=== PATIENT | male | born 1940 | race American Indian/Alaskan Native ===

== ENCOUNTER 2019-05-28 03:59 | Inpatient (IN) | payer MEDICARE ==
[2019-05-28] MEDS ORDERED: ZOFRAN IV ONE (04:59)
[2019-05-28] MEDS ORDERED: NACL 0.9% 1000 ML 1,000 ML IV ONE (04:59)
[2019-05-28] MEDS ORDERED: PROTONIX IV ONE (04:59)
--- NOTE | 2019-05-28 05:03 | Emergency Department Report ---
ED General Adult HPI - General Chief complaint: Weakness Stated complaint: WEAKNESS Time Seen by Provider: 05/28/19 04:48 Source: patient, EMS Mode of arrival: Stretcher Limitations: No Limitations - History of Present Illness Initial comments: Patient is 79 years old male, lives by himself with only past medical history of GERD. Patient brought to the emergency room via EMS accompanied by his ex- and his daughter. Patient stated that for the last 7 days he has been nauseated was vomiting and unable to keep anything down. Patient is coughing also. Patient denied any abdominal pain, fever or chills. -: week(s) - Related Data Allergies Allergy/AdvReac Type Severity Reaction Status Date / Time No Known Allergies Allergy Unverified 08/04/14 14:55 ED Review of Systems ROS: Stated complaint: WEAKNESS Other details as noted in HPI Comment: All other systems reviewed and negative Constitutional: denies: chills, fever Respiratory: cough. denies: shortness of breath, SOB with exertion, wheezing Cardiovascular: denies: chest pain, palpitations Gastrointestinal: nausea, vomiting. denies: abdominal pain, diarrhea, constipation, hematemesis, melena, hematochezia Genitourinary: denies: urgency, dysuria Musculoskeletal: denies: back pain Neurological: weakness. denies: headache, numbness, paresthesias, confusion ED Past Medical Hx - Past Medical History Previous Medical History?: No - Surgical History Past Surgical History?: No - Social History Smoking Status: Current Every Day Smoker Substance Use Type: None ED Physical Exam - General Limitations: No Limitations General appearance: alert, other (patient is actively vomiting) - Head Head exam: Present: atraumatic, normocephalic, normal inspection - Eye Eye exam: Present: normal appearance - ENT ENT exam: Present: mucous membranes dry - Neck Neck exam: Present: normal inspection, full ROM. Absent: tenderness, meningismus, lymphadenopathy, thyromegaly - Respiratory Respiratory exam: Present: normal lung sounds bilaterally - Cardiovascular Cardiovascular Exam: Present: regular rate, normal rhythm, normal heart sounds - GI/Abdominal GI/Abdominal exam: Present: soft, normal bowel sounds. Absent: distended, tenderness, guarding, rebound, rigid, organomegaly, mass, bruit, pulsatile mass, hernia - Extremities Exam Extremities exam: Present: normal inspection, full ROM, normal capillary refill. Absent: tenderness, pedal edema, joint swelling, calf tenderness - Back Exam Back exam: Present: normal inspection, full ROM. Absent: CVA tenderness (R), CVA tenderness (L), muscle spasm, paraspinal tenderness, vertebral tenderness - Neurological Exam Neurological exam: Present: alert, oriented X3, CN II-XII intact, reflexes normal - Psychiatric Psychiatric exam: Present: normal mood - Skin Skin exam: Present: warm, intact, normal color ED Course Vital Signs 05/28/19 04:24 Temperature 97.6 F Pulse Rate 79 Respiratory 11 L Rate Blood Pressure 149/72 O2 Sat by Pulse 95 Oximetry ED Medical Decision Making - Lab Data Result diagrams: 05/28/19 04:52 05/28/19 04:52 - EKG Data -: EKG Interpreted by Me EKG shows normal: sinus rhythm Rate: normal - EKG Data Interpretation: no acute changes - Radiology Data Radiology results: report reviewed - Medical Decision Making Patient is 79 years old male, lives by himself with only past medical history of GERD. Patient brought to the emergency room via EMS accompanied by his ex- and his daughter. Patient stated that for the last 7 days he has been nauseated was vomiting and unable to keep anything down. Patient is coughing also. Patient denied any abdominal pain, fever or chills. Patient found to be in acute renal failure with a creatinine of 31 when and BUN of 187 and potassium of 7.8. Patient received calcium chloride, dextrose 50%, and insulin 10 units, albuterol and can't validate. I discussed the patient is Dr. Brown from nephrology in stated that he'll see the patient. I discussed the patient is Dr. Lee, he agreed to admit the patient to medical service for further management. Critical Care Time: Yes Critical care time in (mins) excluding proc time.: 30 Critical care attestation.: If time is entered above; I have spent that time in minutes in the direct care of this critically ill patient, excluding procedure time. ED Disposition Clinical Impression: Acute renal failure, Hyperkalemia, Nausea and vomiting Disposition: OP ADMIT IP TO THIS HOSP Is pt being admited?: Yes Condition: Stable
[2019-05-28 05:14] LABS: Hematocrit 20.6 % (35.5-45.6); Hemoglobin 7.2 gm/dl (11.8-15.2); Mean Corpuscular HGB Conc 35 % (32-34); Mean Corpuscular Volume 97 fl (84-94); Platelet Count 433 K/mm3 (140-440); Red Blood Count 2.12 M/mm3 (3.65-5.03); Red Cell Distribution Width 15.1 % (13.2-15.2)
[2019-05-28 05:29] LABS: Calcium 7.5 mg/dL (8.4-10.2)
--- NOTE | 2019-05-28 05:32 | XRay Report ---
CHEST 1 VIEW INDICATION / CLINICAL INFORMATION: Weakness. COMPARISON: None available. FINDINGS: SUPPORT DEVICES: None. HEART / MEDIASTINUM: No significant abnormality. LUNGS / PLEURA: No significant pulmonary or pleural abnormality. No pneumothorax. ADDITIONAL FINDINGS: No significant additional findings. IMPRESSION: 1. No acute findings. Signer Name: Niurka Allen MD Signed: 05/28/2019 5:27 AM Workstation Name: [id number]
[2019-05-28 05:33] LABS: Albumin 2.4 g/dL (3.9-5)
[2019-05-28 05:34] LABS: Alanine Aminotransferase < 5 units/L (7-56); Bilirubin,Direct < 0.2 mg/dL (0-0.2)
[2019-05-28] MEDS ORDERED: D50W (25GM) Syringe IV ONE (05:47)
[2019-05-28] MEDS ORDERED: HumuLIN R IV ONE (05:47)
[2019-05-28] MEDS ORDERED: CALCIUM CHLORIDE 1,000 MG in NACL 0.9% 100 ML IV ONE (05:47)
[2019-05-28] MEDS ORDERED: PROVENTIL IH ONE (05:47)
[2019-05-28] MEDS ORDERED: KIONEX PO ONE ×2 (05:55→08:31)
[2019-05-28] MEDS ORDERED: ZOFRAN IV PRN (06:12)
[2019-05-28 06:17] LABS: Anisocytosis 1+; Basophils % (Manual) 0 % (0.0-1.8); Eosinophils % (Manual) 0 % (0.0-4.3); Hypochromasia 1+; Platelet Estimate Consistent w Auto; Total Cells Counted 100
[2019-05-28] MEDS ORDERED: NACL 0.9% 1000 ML 1,000 ML IV SCH (07:00)
--- NOTE | 2019-05-28 07:28 | History and Physical Report ---
CHIEF COMPLAINT: Weakness. Other complaints include nausea, vomiting and diarrhea. HISTORY OF PRESENT ILLNESS: The patient is a 79-year-old male who said he has been having nausea and vomiting going on for the last 24 hours. He has a history of associated weakness, but no history of abdominal pain, chest pain, shortness of breath, fever or chills and the patient said he was unable to keep anything down and has not been eating or drinking much and presented for evaluation. PAST MEDICAL HISTORY: Pertinent for gastroesophageal reflux disease. PAST SURGICAL HISTORY: Unremarkable. FAMILY HISTORY: Noncontributory. SOCIAL HISTORY: The patient smokes cigarette, does not drink alcohol and does not use illicit drugs. MEDICATIONS: The patient is on naproxen. Also, the patient is on pantoprazole. ALLERGIES: There are no known drug allergies. REVIEW OF SYSTEMS: CONSTITUTIONAL: There is no fever, no chills, no diaphoresis. HEENT: There is no headache or sore throat. CARDIOVASCULAR SYSTEM: There is no chest pain or orthopnea. RESPIRATORY SYSTEM: There is no shortness of breath or cough. GASTROINTESTINAL SYSTEM: Nausea and vomiting present. Diarrhea present. No abdominal pain, no constipation. NEUROLOGICAL SYSTEM: Generalized weakness present. No numbness, no altered mental status. MUSCULOSKELETAL SYSTEM: There is no joint pain or swelling. DERMATOLOGICAL SYSTEM: There is no skin rash or itching. GENITOURINARY SYSTEM: There is no dysuria, but no hematuria or flank pain. Rest of system review is normal. PHYSICAL EXAMINATION: GENERAL: At the time of exam, the patient was found to be alert, oriented x 3 and not in acute distress. VITAL SIGNS: At the initial time of presentation showed temperature of 97.6 degrees Fahrenheit, pulse of 79, respirations 11, blood pressure 149/72, O2 sat of 95% on room air. HEENT: Showed pupils to be equal, round, reactive to light and accommodating. Extraocular muscles are intact. NECK: Supple with no JVD or carotid bruit. CARDIOVASCULAR SYSTEM: Showed normal first and second heart sounds with no gallops or murmur. RESPIRATORY SYSTEM: Show good air entry on both sides of the lungs with no abnormal breath sounds. GASTROINTESTINAL SYSTEM: Show abdomen to be full, soft, nontender with no organomegaly or rigidity. NEUROLOGIC: Shows no focal deficit. MUSCULOSKELETAL SYSTEM: Show no joint swelling or tenderness. DERMATOLOGICAL SYSTEM: Show no skin rash. GENITOURINARY SYSTEM: Showing no costovertebral angle tenderness. PERTINENT LABORATORY AND IMAGING STUDIES: The patient has CBC done with normal white count of 10.3, low hemoglobin of 7.2, low hematocrit of 20.6 and high MCV of 97. The patient's chemistry showed low sodium level of 128, high potassium level of 7.8, low chloride level of 79.7 with low CO2 of 20 and high BUN of 187 with high creatinine of 31.6. The patient's calcium level is low with a value of 7.5, magnesium level is high with a value of 5. The patient's troponin levels show a high value of 0.097 and albumin level is low with a value of 3.6. The patient's lipase level is elevated with a value of 161. DIAGNOSES: 1. Acute renal failure. 2. Weakness. 3. Hyperkalemia. 4. Anemia. 5. Nausea and vomiting. 6. Elevated troponin level. PLAN OF CARE: 1. The patient will be admitted to telemetry. 2. The patient will have serial cardiac enzymes involving troponin, total CK, and CK-MB checked every 6 hours x 2 more levels. 3. The patient will have Nephrology consult with Dr. Ben Kramer because of acute renal failure and hyperkalemia. 4. The patient will have basic metabolic panel checked about 4 hours after the treatment of hyperkalemia that was done in the Emergency Room with IV regular insulin, IV 50% dextrose, Kayexalate, IV calcium chloride. 5. The patient will be on regular diet. 6. The patient will be on IV Zofran 4 mg every 8 hours as needed for nausea and 7. patient will be on N/S at 75ml/Hr vomiting. JOB# [id number] OCN/NTS MTDD
[2019-05-28 07:41] LABS: Chol/HDL Ratio 4.04 %
[2019-05-28] MEDS ORDERED: KIONEX PR ONE (08:14)
--- NOTE | 2019-05-28 09:48 | Consultation ---
History of Present Illness - Reason for Consult Consult date: 05/28/19 acute renal failure - History of Present Illness patient with h/p GERD and arthritis presnted to the ER for worsening nausea and vomiting and poor oral intake for the last week, his labs were noted for severe renal failure and hyperkalemia, I was contacted by ER physician and I requested hyperkalemia therapy including insulin, D50W amp, IV calcium and bicarb drip and repeat BMP in 2 hours, I was contacted by Dr guajardo regarding his renal failure, unfortunately BMP was not repeated and bicarb drip was not started, BMP was ordered STAT by Dr Guajardo but results were not available when I interviewed the patient, per ER nurse, she was busy and did not have the chance to collect it. the patient and family stated they were not aware of any kidney condition and he has never seen a kidney specialist in the past. Past History Past Medical History: GERD Medications and Allergies Allergies Allergy/AdvReac Type Severity Reaction Status Date / Time No Known Allergies Allergy Unverified 08/04/14 14:55 Active Meds: Active Medications Heparin Sodium (Porcine) (Heparin) 5,000 unit SUB-Q Q12HR NIKOS Sodium Chloride (Nacl 0.9% 1000 Ml) 1,000 mls @ 125 mls/hr IV DIRECT NIKOS Sodium Bicarbonate 150 meq/ (Dextrose) 1,150 mls @ 150 mls/hr IV DIRECT ONE Stop: 05/28/19 17:19 Ondansetron HCl (Zofran) 4 mg IV Q8H PRN PRN Reason: Nausea And Vomiting Review of Systems All systems: negative (nausea, vomiting) Exam - Vital Signs Vital signs: Vital Signs Pulse Ox 94 05/28/19 04:20 - General Appearance General appearance: well-developed, well-nourished, appears stated age EENT: ATNC, PERRL, mucous membranes dry Neck: Present: neck supple Respiratory: Clear to Ascultation Heart: regular, S1S2 Gastrointestinal: Present: normoactive bowel sounds. Absent: tenderness Integumentary: no rash, warm and dry Neurologic: no focal deficit, no asterixis, alert and oriented x3 Musculoskeletal: Present: other (no edema in BLE) Psychiatric: mood/affect appropriate, cooperative Results - Lab Results 05/28/19 04:52 05/28/19 04:52 Most recent lab results Calcium 7.5 mg/dL (8.4-10.2) L 05/28/19 04:52 Magnesium 5.00 mg/dL (1.7-2.3) H 05/28/19 04:52 Assessment and Plan severe renal failure, prerenal azotemia vs. ATN from dehydration and NSAIDs Hyperkalemia secondary to DMITRIY Anemia, possible secondary to CKD nausea and vomiting with elevated lipase - discussed with Dr Guajardo, ISTAT BMP re-ordered, if no improvement in kidney function or hyperkalemia will need to start HD, I called Dr Dela Cruz and he should b e available if vascath is available - secondary GN, paraprotein and vascultitis work up ordered - UA and urine lytes, protein and eos ordered - renal US ordered - iron panel ordered, consider consulting GI to r/o GI bleed - renally dose meds - strict I&O - avoid nephrotoxins Williams Olea MD [phone]
[2019-05-28] MEDS ORDERED: SODIUM BICARBONATE 150 MEQ in D5W 1,000 ML IV ONE (10:00)
[2019-05-28 10:26] LABS: Calcium 7.7 mg/dL (8.4-10.2)
[2019-05-28] MEDS ORDERED: CALCIUM GLUCONATE 2,000 MG in NACL 0.9% 100 ML IV ONE (10:30)
--- NOTE | 2019-05-28 11:44 | Event Note ---
Date: 05/28/19 NPO except meds. 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
--- NOTE | 2019-05-28 13:08 | Progress Note ---
Assessment and Plan Assessment and plan: Patient is a 79 yo man with a history of tobacco dependency, GERD, OA on naproxen given by his PCP Dr. Naseem Orlando who presented to [facility] ED with weakness, poor appetite, N/V. He was found to be in severe acute renal failure BUN 187/Cr 13.6 with severe hyperkalemia, K+ 7.8. He was treated with hyperkalem ia cocktail including insulin, albuterol neb, calcium gluconate but not bicarbornate or kayexalate. The patient went to the telemetry floor where I saw him with his daughter Magdaleno and ex-. The phlembologist was at bedside. His repeat potassium was 7.3. I spoke with IR and Dental Front Office Assistant; he will go for HD access placement for emergent hemodialysis. -Acute Renal failure, suspect ATN: continue IVFs, start HCO3 drip -Severe hyperkalemia with EKG changes, s/p IV calcium: ordered Kayexalate drip -Hyponatremia, hypovolemia: continue IVF -Severe Malnutrition, pt states he has been losing weight: consult [employer] -Suspected Acute Metabolic Encephalopathy, he just doesn't seem right, argumentative, slightly confused. -Anemia, normacytic: repeat CBC prolonged inpatient services 34 minutes History Interval history: Patient was seen and examined. Follow-up on current diagnosis of ARF. No overnight events reported to me. Patient denies any chest pain, shortness breath, nausea/vomiting or severe headaches. Imaging, nursing note, chart, labs and old chart reviewed. Discussed with patient. Hospitalist Physical - Physical exam Narrative exam: Gen: WDWN, NAD, Awake, Alert, Orientated x 3 but needs additional hints and he is stuttering, with difficulty finding words but he does not have aphasia HEENT: NCAT, EOMI, PERRL, OP Clear Neck: supple, no adenopathy, no thyromegaly, no JVD CVS/Heart: RRR, normal S1S2, pulses present bilaterally Chest/Lungs: CTA B, Symmetrical chest expansion, good air entry bilaterally GI/Abdomen: soft, NTND, good bowel sounds, no guarding or rebound /Bladder: no suprapubic tenderness, no CVA or paraspinal tenderness Extermity/Skin: no c/c/e, no obvious rash MSK: FROM x 4 Neuro: CN 2-12 grossly intact, no new focal deficits Psych: calm - Constitutional Vitals: Temp Pulse Resp BP Pulse Ox 97.5 F L 91 H 18 132/68 99 05/28/19 12:04 05/28/19 12:04 05/28/19 12:04 05/28/19 12:04 05/28/19 12:04 Results - Labs CBC & Chem 7: 05/28/19 04:52 05/28/19 09:51 Labs: Laboratory Last Values WBC 10.3 K/mm3 (4.5-11.0) 05/28/19 04:52 RBC 2.12 M/mm3 (3.65-5.03) L 05/28/19 04:52 Hgb 7.2 gm/dl (11.8-15.2) L 05/28/19 04:52 Hct 20.6 % (35.5-45.6) L 05/28/19 04:52 MCV 97 fl (84-94) H 05/28/19 04:52 MCH 34 pg (28-32) H 05/28/19 04:52 MCHC 35 % (32-34) H 05/28/19 04:52 RDW 15.1 % (13.2-15.2) 05/28/19 04:52 Plt Count 433 K/mm3 (140-440) 05/28/19 04:52 Add Manual Diff Complete 05/28/19 04:52 Total Counted 100 05/28/19 04:52 Seg Neutrophils % Php Website Developer 05/28/19 04:52 Seg Neuts % (Manual) 92.0 % (40.0-70.0) H 05/28/19 04:52 Band Neutrophils % 0 % 05/28/19 04:52 Lymphocytes % (Manual) 5.0 % (13.4-35.0) L 05/28/19 04:52 Reactive Lymphs % (Man) 0 % 05/28/19 04:52 Monocytes % (Manual) 3.0 % (0.0-7.3) 05/28/19 04:52 Eosinophils % (Manual) 0 % (0.0-4.3) 05/28/19 04:52 Basophils % (Manual) 0 % (0.0-1.8) 05/28/19 04:52 Metamyelocytes % 0 % 05/28/19 04:52 Myelocytes % 0 % 05/28/19 04:52 Promyelocytes % 0 % 05/28/19 04:52 Blast Cells % 0 % 05/28/19 04:52 Nucleated RBC % Not Reportable 05/28/19 04:52 Seg Neutrophils # Man 9.5 K/mm3 (1.8-7.7) H 05/28/19 04:52 Band Neutrophils # 0.0 K/mm3 05/28/19 04:52 Lymphocytes # (Manual) 0.5 K/mm3 (1.2-5.4) L 05/28/19 04:52 Abs React Lymphs (Man) 0.0 K/mm3 05/28/19 04:52 Monocytes # (Manual) 0.3 K/mm3 (0.0-0.8) 05/28/19 04:52 Eosinophils # (Manual) 0.0 K/mm3 (0.0-0.4) 05/28/19 04:52 Basophils # (Manual) 0.0 K/mm3 (0.0-0.1) 05/28/19 04:52 Metamyelocytes # 0.0 K/mm3 05/28/19 04:52 Myelocytes # 0.0 K/mm3 05/28/19 04:52 Promyelocytes # 0.0 K/mm3 05/28/19 04:52 Blast Cells # 0.0 K/mm3 05/28/19 04:52 WBC Morphology Not Reportable 05/28/19 04:52 Hypersegmented Neuts Not Reportable 05/28/19 04:52 Hyposegmented Neuts Not Reportable 05/28/19 04:52 Hypogranular Neuts Not Reportable 05/28/19 04:52 Smudge Cells Not Reportable 05/28/19 04:52 Toxic Granulation Not Reportable 05/28/19 04:52 Toxic Vacuolation Not Reportable 05/28/19 04:52 Dohle Bodies Not Reportable 05/28/19 04:52 Pelger-Huet Anomaly Not Reportable 05/28/19 04:52 Brett Rods Not Reportable 05/28/19 04:52 Platelet Estimate Consistent w auto 05/28/19 04:52 Clumped Platelets Not Reportable 05/28/19 04:52 Plt Clumps, EDTA Not Reportable 05/28/19 04:52 Large Platelets Not Reportable 05/28/19 04:52 Giant Platelets Not Reportable 05/28/19 04:52 Platelet Satelliting Not Reportable 05/28/19 04:52 Plt Morphology Comment Not Reportable 05/28/19 04:52 RBC Morphology Not Reportable 05/28/19 04:52 Dimorphic RBCs Not Reportable 05/28/19 04:52 Polychromasia Not Reportable 05/28/19 04:52 Hypochromasia 1+ 05/28/19 04:52 Poikilocytosis Not Reportable 05/28/19 04:52 Anisocytosis 1+ 05/28/19 04:52 Microcytosis Not Reportable 05/28/19 04:52 Macrocytosis Not Reportable 05/28/19 04:52 Spherocytes Not Reportable 05/28/19 04:52 Pappenheimer Bodies Not Reportable 05/28/19 04:52 Sickle Cells Not Reportable 05/28/19 04:52 Target Cells Not Reportable 05/28/19 04:52 Tear Drop Cells Not Reportable 05/28/19 04:52 Ovalocytes Not Reportable 05/28/19 04:52 Helmet Cells Not Reportable 05/28/19 04:52 [place] Bodies Not Reportable 05/28/19 04:52 [place] Rings Not Reportable 05/28/19 04:52 [place] Cells Not Reportable 05/28/19 04:52 Bite Cells Not Reportable 05/28/19 04:52 Crenated Cell Not Reportable 05/28/19 04:52 Elliptocytes Not Reportable 05/28/19 04:52 Acanthocytes (Spur) Not Reportable 05/28/19 04:52 Rouleaux Not Reportable 05/28/19 04:52 Hemoglobin C Crystals Not Reportable 05/28/19 04:52 Schistocytes Not Reportable 05/28/19 04:52 Malaria parasites Not Reportable 05/28/19 04:52 M[place] Bodies Not Reportable 05/28/19 04:52 Hem Pathologist Commnt No 05/28/19 04:52 Sodium 128 mmol/L (137-145) L 05/28/19 09:51 Potassium 7.3 mmol/L (3.6-5.0) H* 05/28/19 09:51 Chloride 84.3 mmol/L (98-107) L 05/28/19 09:51 Carbon Dioxide 19 mmol/L (22-30) L 05/28/19 09:51 Anion Gap 32 mmol/L 05/28/19 09:51 BUN 184 mg/dL (9-20) H 05/28/19 09:51 Creatinine 30.1 mg/dL (0.8-1.5) H 05/28/19 09:51 Estimated GFR 2 ml/min 05/28/19 09:51 BUN/Creatinine Ratio 6 % 05/28/19 09:51 Glucose 89 mg/dL (75-100) 05/28/19 09:51 Calcium 7.7 mg/dL (8.4-10.2) L 05/28/19 09:51 Magnesium 5.00 mg/dL (1.7-2.3) H 05/28/19 04:52 Total Bilirubin 0.30 mg/dL (0.1-1.2) 05/28/19 04:52 Direct Bilirubin < 0.2 mg/dL (0-0.2) 05/28/19 04:52 Indirect Bilirubin 0.1 mg/dL 05/28/19 04:52 AST 9 units/L (5-40) 05/28/19 04:52 ALT < 5 units/L (7-56) L 05/28/19 04:52 Alkaline Phosphatase 55 units/L (35-129) 05/28/19 04:52 Lactate Dehydrogenase 200 units/L (91-180) H 05/28/19 09:51 Total Creatine Kinase 73 units/L (55-170) 05/28/19 09:51 Troponin T 0.097 ng/mL (0.00-0.029) H 05/28/19 04:52 Troponin T 0.101 ng/mL (0.00-0.029) H* 05/28/19 04:52 Total Protein 8.9 g/dL (6.3-8.2) H 05/28/19 04:52 Albumin 2.4 g/dL (3.9-5) L 05/28/19 04:52 Albumin/Globulin Ratio 0.4 % 05/28/19 04:52 Triglycerides 67 mg/dL (2-149) 05/28/19 04:52 Cholesterol 101 mg/dL (50-199) 05/28/19 04:52 LDL Cholesterol Direct 61 mg/dL (50-130) 05/28/19 04:52 HDL Cholesterol 25 mg/dL (40-59) L 05/28/19 04:52 Cholesterol/HDL Ratio 4.04 % 05/28/19 04:52 Lipase 161 units/L (13-60) H 05/28/19 05:03 Hep Bs Antigen Non-reactive (Negative) 05/28/19 09:51 Schistocytes Smear None seen 05/28/19 Unknown Active Medications - Current Medications Current Medications: Generic Name Dose Route Start Last Admin Trade Name Freq PRN Reason Stop Dose Admin Heparin Sodium (Porcine) 5,000 unit 05/28/19 10:00 Heparin SUB-Q Q12HR NIKOS Sodium Chloride 1,000 mls @ 125 mls/hr 05/28/19 07:00 Nacl 0.9% 1000 Ml IV DIRECT NIKOS Sodium Bicarbonate 150 meq/ 1,150 mls @ 150 mls/hr 05/28/19 10:00 Dextrose IV 05/28/19 17:39 DIRECT ONE Ondansetron HCl 4 mg 05/28/19 06:12 Zofran IV Q8H PRN Nausea And Vomiting
[2019-05-28 13:31] LABS: Hepatitis B Surface Antigen Non-Reactive (Negative); Hepatitis C Virus Antibody Non-Reactive (NonReactive)
[2019-05-28 13:35] LABS: Creatine Kinase MB 2.5 ng/mL (0.0-4.0)
[2019-05-28] MEDS ORDERED: SUBLIMAZE ONE (14:33)
[2019-05-28] MEDS ORDERED: VERSED ONE (14:33)
[2019-05-28] MEDS ORDERED: XYLOCAINE 1%/ EPI 1:100,000 INFILTRATI ONE (14:34)
[2019-05-28] MEDS ORDERED: NACL 0.9% 500 ML 500 ML ONE (14:34)
[2019-05-28] MEDS ORDERED: HEPARIN/NS 5000 UNIT/500ML(CATH LAB) 500 ML IR ONE (14:34)
[2019-05-28] MEDS ORDERED: ANCEF/STERILE WATER 2 GM/20 ML 2 GM/20 ML SYRINGE IV ONE (14:35)
[2019-05-28] MEDS: HEPARIN 10,000 UNITS/10 ML ONE ×4 (14:52→14:56)
--- NOTE | 2019-05-28 15:02 | Operative Report ---
Operative Report Operative Report: EXAM: 1. Ultrasound-guided puncture of the right internal jugular vein 2. Fluoroscopic-guided placement of a right internal jugular nontunneled noncuffed hemodialysis catheter. DATE: 05/28/19 INDICATION: Acute renal failure requiring hemodialysis. MEDICATIONS: Please see nursing report for full details. DEVICES: 15 cm triple lumen hemodialysis catheter ENTRY LEVEL PROJECT COORDINATOR: LORRAINE SCHWARTZ MD CONTRAST: None PROCEDURE: The risks, benefits, and alternatives were discussed and informed consent was obtained. The patient was transported to the angiography suite in satisfactory/stable condition and was transported onto the angiography table. The patient's right internal jugular vein was assessed with ultrasound and determined to be patent prior to procedure. The patient was prepped and draped in a sterile fashion. The puncture site was anesthetized. The right internal jugular vein was patent on ultrasound. Under sonographic guidance, the right internal jugular vein was punctured with a 21-gauge micropuncture needle and a 0.018 inch wire was advanced through the needle. Needle was exchanged for transitional dilator. The inner dilator and wire was removed and a 0.035 inch wire was advanced through the transitional dilator into the inferior vena cava. Over the 0.035 inch wire, serial dilatation was performed. The catheter was advanced over the wire and positioned centrally under fluoroscopic guidance. 2-0 Ethilon suture was used to secure the catheter. The catheter was charged with heparin 1000 units per mL space. Sterile dressing and Biopatch applied. The patient was transferred from the angiography suite back to the floor in stable condition. FINDINGS: 1. Excellent flow was obtained through the dialysis catheter with 20 mL syringes. 2. The catheter tip is in the right atrium. IMPRESSION: 1. Successful sonographically and fluoroscopically guided placement of a right internal jugular nontunneled noncuffed hemodialysis catheter.
[2019-05-28 19:52] LABS: Creatine Kinase MB 2.4 ng/mL (0.0-4.0)
[2019-05-28] MEDS ORDERED: NACL 0.9 (PRIMING MACHINE ONLY DIALYSIS) MC ONE (19:52)
[2019-05-28] MEDS: HEPARIN SUB-Q SCH (21:13)
[2019-05-29 06:07] LABS: Basophils % (Auto) 0.1 % (0.0-1.8); Eosinophils % (Auto) 0.1 % (0.0-4.3); Lymphocytes # (Auto) 0.6 K/mm3 (1.2-5.4); Lymphocytes % (Auto) 7.6 % (13.4-35.0); Mean Corpuscular HGB Conc 34 % (32-34); Mean Corpuscular Volume 97 fl (84-94); Monocytes # (Auto) 0.5 K/mm3 (0.0-0.8); Monocytes % (Auto) 6.9 % (0.0-7.3); Platelet Count 315 K/mm3 (140-440); Red Blood Count 1.77 M/mm3 (3.65-5.03); Red Cell Distribution Width 15.3 % (13.2-15.2)
[2019-05-29 06:11] LABS: Hematocrit 17.3 % (35.5-45.6); Hemoglobin 5.8 gm/dl (11.8-15.2)
[2019-05-29 06:12] LABS: Bacteria,Urine 1+ /HPF (Negative); Bilirubin,Urine NEG (Negative); Blood,Urine LG (Negative); Color,Urine Yellow (Yellow); Creatinine,Urine 97.3 mg/dL (0.1-20.0); Mucus,Urine FEW /HPF; Urobilinogen,Urine < 2.0 mg/dL (<2.0)
[2019-05-29] MEDS ORDERED: NACL 0.9% 500 ML 500 ML IV ONE (06:19)
[2019-05-29 06:30] LABS: Calcium 7.4 mg/dL (8.4-10.2)
[2019-05-29 06:47] LABS: Protein/Creatinine Ratio,Urine 3.15
[2019-05-29] MEDS ORDERED: NACL 0.9% 500 ML 500 ML IV NR (08:27)
--- NOTE | 2019-05-29 10:34 | Ultrasound Report ---
ULTRASOUND RENAL INDICATION / CLINICAL INFORMATION: renal failure. Dialysis patient. COMPARISON: None available. FINDINGS: RIGHT KIDNEY: Length = 11.3 cm. [normal > 9 cm] - Parenchymal Thickness = 1.7 cm. [normal > 1.5 cm] - Echogenicity: Slightly increased - Hydronephrosis: None. - Cyst or mass: No significant abnormality. - Stones: None seen. LEFT KIDNEY: Length = 12.3 cm. [normal > 9 cm] - Parenchymal Thickness = 0.7 cm. [normal > 1.5 cm] - Echogenicity: Slightly increased. - Hydronephrosis: None. - Cyst or mass: No significant abnormality. - Stones: None seen. URINARY BLADDER: The bladder is nearly empty but unremarkable. FREE FLUID: None. ADDITIONAL FINDINGS: Incidental findings of gallstones in a nondistended gallbladder. IMPRESSION: Slightly echogenic kidneys consistent with nonspecific renal parenchymal disease. Cholelithiasis. Signer Name: Sav Galeano Jr, MD Signed: 05/29/2019 10:29 AM Workstation Name: [id number]
--- NOTE | 2019-05-29 12:31 | Progress Note ---
Assessment and Plan Severe renal failure, prerenal azotemia vs. 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 Serum creatinine 12.2 today from 30.1 yesterday. 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 - So far Hep panel is negative and Schistocytes are negative - Urine eosinophils- none seen - Renal US- No hydronephrosis. Medical renal disease. - Iron panel ordered, consider consulting GI to r/o GI bleed - Renally dose meds - Strict I&O - Avoid nephrotoxic agents Subjective Date of service: 05/29/19 Interval history: Patient seen lying in bed. States he wants something to help him have a bowel movement Objective - Vital Signs Vital signs: Vital Signs - 12hr 05/29/19 05/29/19 05/29/19 03:00 03:40 07:41 Temperature 98.5 F 98.3 F Pulse Rate 86 98 H Respiratory 18 18 Rate Blood Pressure 117/60 113/57 O2 Sat by Pulse 96 Oximetry 05/29/19 11:54 Temperature 98.5 F Pulse Rate 103 H Respiratory 18 Rate Blood Pressure 124/71 O2 Sat by Pulse 96 Oximetry - General Appearance General appearance: well-developed, appears stated age, fatigue EENT: ATNC, PERRL, hearing intact, vision intact Neck: no JVD, supple Respiratory: Present: Decreased Breath Sounds Cardiology: regular, S1S2 Gastrointestinal: normoactive bowel sounds Integumentary: warm and dry Neurologic: alert and oriented x3 Musculoskeletal: other (No edema) - Lab 05/29/19 05:28 05/29/19 05:28 Most recent lab results Calcium 7.4 mg/dL (8.4-10.2) L 05/29/19 05:28 Phosphorus 6.90 mg/dL (2.5-4.5) H 05/29/19 05:28 Magnesium 2.60 mg/dL (1.7-2.3) H 05/29/19 Unknown Urine Creatinine 94.0 mg/dL (0.1-20.0) H 05/29/19 05:50 Urine Creatinine 97.3 mg/dL (0.1-20.0) H 05/29/19 05:50 Urine Sodium 51 mmol/L 05/29/19 05:50 Urine Total Protein 296 mg/dL (5-11.8) H 05/29/19 05:50 Medications & Allergies - Medications Allergies/Adverse Reactions: Allergies No Known Allergies Allergy (Unverified 08/04/14 14:55) Active Medications: Generic Name Dose Route Start Last Admin Trade Name Freq PRN Reason Stop Dose Admin Heparin Sodium (Porcine) 5,000 unit 05/28/19 10:00 05/28/19 21:13 Heparin SUB-Q 5,000 unit Q12HR NIKOS Administration Sodium Chloride 1,000 mls @ 125 mls/hr 05/28/19 07:00 05/29/19 05:43 Nacl 0.9% 1000 Ml IV 125 mls/hr DIRECT NIKOS Administration Sodium Chloride 500 mls @ 0 mls/hr 05/29/19 08:27 Nacl 0.9% 500 Ml IV 05/29/19 16:00 ONCE NR As Directed Ondansetron HCl 4 mg 05/28/19 06:12 Zofran IV Q8H PRN Nausea And Vomiting
--- NOTE | 2019-05-29 17:06 | Progress Note ---
Assessment and Plan Assessment and plan: Patient is a 79 yo man with a history of tobacco dependency, GERD, OA on naproxen given by his PCP Dr. Naseem Orlando who presented to [facility] ED with weakness, poor appetite, N/V. He was found to be in severe acute renal failure BUN 187/Cr 13.6 with severe hyperkalemia, K+ 7.8. He was treated with hyperkalem ia cocktail including insulin, albuterol neb, calcium gluconate but not bicarbornate or kayexalate. The patient went to the telemetry floor where I saw him with his daughter Magdaleno and ex-. The phlembologist was at bedside. His repeat potassium was 7.3. I spoke with IR and Weather Forecaster; he will go for HD access placement for emergent hemodialysis. -Acute Renal failure, suspect ATN: continue IVFs, start HCO3 drip -Severe hyperkalemia with EKG changes, s/p IV calcium: ordered Kayexalate drip -Hyponatremia, hypovolemia: continue IVF -Severe Malnutrition, pt states he has been losing weight: consult Assistant Executive Housekeeper -Suspected Acute Metabolic Encephalopathy, he just doesn't seem right, argumentative, slightly confused. -Anemia, normacytic worsening: transfuse 2 units of PRBC, CCT 34 mintues History Interval history: Patient was seen and examined. Follow-up on current diagnosis of ARF. No overnight events reported to me. Patient denies any chest pain, shortness breath, nausea/vomiting or severe headaches. Imaging, nursing note, chart, labs and old chart reviewed. Discussed with patient. Daughter Ivanna at bedside with her nephrew (Magdaleno's son) Hospitalist Physical - Physical exam Narrative exam: Gen: WDWN, NAD, Awake, Alert, Orientated x 3 but needs additional hints and he is stuttering, with difficulty finding words but he does not have aphasia HEENT: NCAT, EOMI, PERRL, OP Clear Neck: supple, no adenopathy, no thyromegaly, no JVD CVS/Heart: RRR, normal S1S2, pulses present bilaterally Chest/Lungs: CTA B, Symmetrical chest expansion, good air entry bilaterally GI/Abdomen: soft, NTND, good bowel sounds, no guarding or rebound /Bladder: no suprapubic tenderness, no CVA or paraspinal tenderness Extermity/Skin: no c/c/e, no obvious rash MSK: FROM x 4 Neuro: CN 2-12 grossly intact, no new focal deficits Psych: calm - Constitutional Vitals: Temp Pulse Resp BP Pulse Ox 98.4 F 83 15 126/72 100 05/29/19 16:42 05/29/19 16:42 05/29/19 16:42 05/29/19 16:42 05/29/19 16:42 Results - Labs CBC & Chem 7: 05/29/19 05:28 05/29/19 05:28 Labs: Laboratory Last Values WBC 7.3 K/mm3 (4.5-11.0) 05/29/19 05:28 RBC 1.77 M/mm3 (3.65-5.03) L 05/29/19 05:28 Hgb 5.8 gm/dl (11.8-15.2) L* 05/29/19 05:28 Hct 17.3 % (35.5-45.6) L* 05/29/19 05:28 MCV 97 fl (84-94) H 05/29/19 05:28 MCH 33 pg (28-32) H 05/29/19 05:28 MCHC 34 % (32-34) 05/29/19 05:28 RDW 15.3 % (13.2-15.2) H 05/29/19 05:28 Plt Count 315 K/mm3 (140-440) 05/29/19 05:28 Lymph % (Auto) 7.6 % (13.4-35.0) L 05/29/19 05:28 [place] % (Auto) 6.9 % (0.0-7.3) 05/29/19 05:28 Eos % (Auto) 0.1 % (0.0-4.3) 05/29/19 05:28 Baso % (Auto) 0.1 % (0.0-1.8) 05/29/19 05:28 Lymph # 0.6 K/mm3 (1.2-5.4) L 05/29/19 05:28 [place] # 0.5 K/mm3 (0.0-0.8) 05/29/19 05:28 Eos # 0.0 K/mm3 (0.0-0.4) 05/29/19 05:28 Baso # 0.0 K/mm3 (0.0-0.1) 05/29/19 05:28 Add Manual Diff Complete 05/28/19 04:52 Total Counted 100 05/28/19 04:52 Seg Neutrophils % 85.3 % (40.0-70.0) H 05/29/19 05:28 Seg Neuts % (Manual) 92.0 % (40.0-70.0) H 05/28/19 04:52 Band Neutrophils % 0 % 05/28/19 04:52 Lymphocytes % (Manual) 5.0 % (13.4-35.0) L 05/28/19 04:52 Reactive Lymphs % (Man) 0 % 05/28/19 04:52 Monocytes % (Manual) 3.0 % (0.0-7.3) 05/28/19 04:52 Eosinophils % (Manual) 0 % (0.0-4.3) 05/28/19 04:52 Basophils % (Manual) 0 % (0.0-1.8) 05/28/19 04:52 Metamyelocytes % 0 % 05/28/19 04:52 Myelocytes % 0 % 05/28/19 04:52 Promyelocytes % 0 % 05/28/19 04:52 Blast Cells % 0 % 05/28/19 04:52 Nucleated RBC % Not Reportable 05/28/19 04:52 Seg Neutrophils # 6.3 K/mm3 (1.8-7.7) 05/29/19 05:28 Seg Neutrophils # Man 9.5 K/mm3 (1.8-7.7) H 05/28/19 04:52 Band Neutrophils # 0.0 K/mm3 05/28/19 04:52 Lymphocytes # (Manual) 0.5 K/mm3 (1.2-5.4) L 05/28/19 04:52 Abs React Lymphs (Man) 0.0 K/mm3 05/28/19 04:52 Monocytes # (Manual) 0.3 K/mm3 (0.0-0.8) 05/28/19 04:52 Eosinophils # (Manual) 0.0 K/mm3 (0.0-0.4) 05/28/19 04:52 Basophils # (Manual) 0.0 K/mm3 (0.0-0.1) 05/28/19 04:52 Metamyelocytes # 0.0 K/mm3 05/28/19 04:52 Myelocytes # 0.0 K/mm3 05/28/19 04:52 Promyelocytes # 0.0 K/mm3 05/28/19 04:52 Blast Cells # 0.0 K/mm3 05/28/19 04:52 WBC Morphology Not Reportable 05/28/19 04:52 Hypersegmented Neuts Not Reportable 05/28/19 04:52 Hyposegmented Neuts Not Reportable 05/28/19 04:52 Hypogranular Neuts Not Reportable 05/28/19 04:52 Smudge Cells Not Reportable 05/28/19 04:52 Toxic Granulation Not Reportable 05/28/19 04:52 Toxic Vacuolation Not Reportable 05/28/19 04:52 Dohle Bodies Not Reportable 05/28/19 04:52 Pelger-Huet Anomaly Not Reportable 05/28/19 04:52 Brett Rods Not Reportable 05/28/19 04:52 Platelet Estimate Consistent w auto 05/28/19 04:52 Clumped Platelets Not Reportable 05/28/19 04:52 Plt Clumps, EDTA Not Reportable 05/28/19 04:52 Large Platelets Not Reportable 05/28/19 04:52 Giant Platelets Not Reportable 05/28/19 04:52 Platelet Satelliting Not Reportable 05/28/19 04:52 Plt Morphology Comment Not Reportable 05/28/19 04:52 RBC Morphology Not Reportable 05/28/19 04:52 Dimorphic RBCs Not Reportable 05/28/19 04:52 Polychromasia Not Reportable 05/28/19 04:52 Hypochromasia 1+ 05/28/19 04:52 Poikilocytosis Not Reportable 05/28/19 04:52 Anisocytosis 1+ 05/28/19 04:52 Microcytosis Not Reportable 05/28/19 04:52 Macrocytosis Not Reportable 05/28/19 04:52 Spherocytes Not Reportable 05/28/19 04:52 Pappenheimer Bodies Not Reportable 05/28/19 04:52 Sickle Cells Not Reportable 05/28/19 04:52 Target Cells Not Reportable 05/28/19 04:52 Tear Drop Cells Not Reportable 05/28/19 04:52 Ovalocytes Not Reportable 05/28/19 04:52 Helmet Cells Not Reportable 05/28/19 04:52 Cox-Gillette Bodies Not Reportable 05/28/19 04:52 [place] Rings Not Reportable 05/28/19 04:52 [place] Cells Not Reportable 05/28/19 04:52 Bite Cells Not Reportable 05/28/19 04:52 Crenated Cell Not Reportable 05/28/19 04:52 Elliptocytes Not Reportable 05/28/19 04:52 Acanthocytes (Spur) Not Reportable 05/28/19 04:52 Rouleaux Not Reportable 05/28/19 04:52 Hemoglobin C Crystals Not Reportable 05/28/19 04:52 Schistocytes Not Reportable 05/28/19 04:52 Malaria parasites Not Reportable 05/28/19 04:52 Mynor Bodies Not Reportable 05/28/19 04:52 Hem Pathologist Commnt No 05/28/19 04:52 Sodium 132 mmol/L (137-145) L 05/29/19 05:28 Potassium 5.3 mmol/L (3.6-5.0) H D 05/29/19 05:28 Chloride 89.4 mmol/L (98-107) L 05/29/19 05:28 Carbon Dioxide 30 mmol/L (22-30) D 05/29/19 05:28 Anion Gap 18 mmol/L 05/29/19 05:28 BUN 60 mg/dL (9-20) H 05/29/19 05:28 Creatinine 12.2 mg/dL (0.8-1.5) H D 05/29/19 05:28 Estimated GFR 5 ml/min 05/29/19 05:28 BUN/Creatinine Ratio 5 % 05/29/19 05:28 Glucose 111 mg/dL (75-100) H 05/29/19 05:28 Calcium 7.4 mg/dL (8.4-10.2) L 05/29/19 05:28 Phosphorus 6.90 mg/dL (2.5-4.5) H 05/29/19 05:28 Magnesium 2.60 mg/dL (1.7-2.3) H 05/29/19 Unknown Total Bilirubin 0.30 mg/dL (0.1-1.2) 05/28/19 04:52 Direct Bilirubin < 0.2 mg/dL (0-0.2) 05/28/19 04:52 Indirect Bilirubin 0.1 mg/dL 05/28/19 04:52 AST 9 units/L (5-40) 05/28/19 04:52 ALT < 5 units/L (7-56) L 05/28/19 04:52 Alkaline Phosphatase 55 units/L (35-129) 05/28/19 04:52 Lactate Dehydrogenase 200 units/L (91-180) H 05/28/19 09:51 Total Creatine Kinase 80 units/L (55-170) 05/28/19 19:24 CK-MB (CK-2) 2.4 ng/mL (0.0-4.0) 05/28/19 19:24 CK-MB (CK-2) Rel Index 3.0 (0-4) 05/28/19 19:24 Troponin T 0.085 ng/mL (0.00-0.029) H 05/28/19 19:24 Total Protein 8.9 g/dL (6.3-8.2) H 05/28/19 04:52 Albumin 2.4 g/dL (3.9-5) L 05/28/19 04:52 Albumin/Globulin Ratio 0.4 % 05/28/19 04:52 Triglycerides 67 mg/dL (2-149) 05/28/19 04:52 Cholesterol 101 mg/dL (50-199) 05/28/19 04:52 LDL Cholesterol Direct 61 mg/dL (50-130) 05/28/19 04:52 HDL Cholesterol 25 mg/dL (40-59) L 05/28/19 04:52 Cholesterol/HDL Ratio 4.04 % 05/28/19 04:52 Lipase 161 units/L (13-60) H 05/28/19 05:03 Urine Color Yellow (Yellow) 05/29/19 05:50 Urine Turbidity Cloudy (Clear) 05/29/19 05:50 Urine pH 6.0 (5.0-7.0) 05/29/19 05:50 Ur Specific [place] 1.012 (1.003-1.030) 05/29/19 05:50 Urine Protein 100 mg/dl mg/dL (Negative) 05/29/19 05:50 Urine Glucose (UA) 50 mg/dL (Negative) 05/29/19 05:50 Urine Ketones Neg mg/dL (Negative) 05/29/19 05:50 Urine Blood Lg (Negative) 05/29/19 05:50 Urine Nitrite Neg (Negative) 05/29/19 05:50 Urine Bilirubin Neg (Negative) 05/29/19 05:50 Urine Urobilinogen < 2.0 mg/dL (<2.0) 05/29/19 05:50 Ur Leukocyte Esterase Tr (Negative) 05/29/19 05:50 Urine WBC (Auto) 10.0 /HPF (0.0-6.0) H 05/29/19 05:50 Urine RBC (Auto) 49.0 /HPF (0.0-6.0) 05/29/19 05:50 Urine Bacteria (Auto) 1+ /HPF (Negative) 05/29/19 05:50 Urine Mucus Few /HPF 05/29/19 05:50 Urine Eosinophils None seen (None Seen) 05/29/19 05:50 Urine Creatinine 94.0 mg/dL (0.1-20.0) H 05/29/19 05:50 Urine Creatinine 97.3 mg/dL (0.1-20.0) H 05/29/19 05:50 Protein/Creatinin Ratio 3.15 05/29/19 05:50 Urine Sodium 51 mmol/L 05/29/19 05:50 Urine Total Protein 296 mg/dL (5-11.8) H 05/29/19 05:50 Hepatitis A IgM Ab Non-reactive (NonReactive) 05/28/19 12:35 Hep Bs Antigen Non-reactive (Negative) 05/28/19 12:35 Hep B Core IgM Ab Non-reactive (NonReactive) 05/28/19 12:35 Hepatitis C Antibody Non-reactive (NonReactive) 05/28/19 12:35 Schistocytes Smear None seen 05/28/19 Unknown Blood Type A POSITIVE 05/29/19 10:20 Antibody Screen Negative 05/29/19 10:20 Crossmatch See Detail 05/29/19 10:20 Active Medications - Current Medications Current Medications: Generic Name Dose Route Start Last Admin Trade Name Freq PRN Reason Stop Dose Admin Heparin Sodium (Porcine) 5,000 unit 05/28/19 10:00 05/28/19 21:13 Heparin SUB-Q 5,000 unit Q12HR NIKOS Administration Sodium Chloride 1,000 mls @ 125 mls/hr 05/28/19 07:00 05/29/19 05:43 Nacl 0.9% 1000 Ml IV 125 mls/hr DIRECT NIKOS Administration Ondansetron HCl 4 mg 05/28/19 06:12 Zofran IV Q8H PRN Nausea And Vomiting Nutrition/Malnutrition Assess - Dietary Evaluation Nutrition/Malnutrition Findings: Nutrition Notes Start: 05/28/19 13:00 Freq: Status: Active Protocol: Document 05/28/19 13:01 (Rec: 05/28/19 13:33 [id number]) Nutrition Notes Need for Assessment generated from: MD Order Initial or Follow up Assessment Current Diagnosis Acute Kidney Injury Other Pertinent Diagnosis GERD Current Diet NPO Labs/Tests Na 128 K 7.3 Bun 184 Creatinine 30.1 Ca 7.7 GFR 2 Cl 84.3 Pertinent Medications Reviewed Height 5 ft 9 in Weight 67.72 kg [place] Body Weight (kg) 72.72 BMI 22.0 Intake Prior to Admission Poor Weight change and time frame 12% UBW lost in 3 weeks Weight Status Appropriate Subjective/Other Information Pt stated before episodes of N /V he had a good appetite at home and ate "everything". Pt states he has had a hard time eating and is nauseous, and reports gagging at times but no emesis. Per pt report he did not eat bfast before NPO status began. Discussed foods to consider (BRAT diet/cold foods) and limit (spicy foods) when pt is experiencing GERD and N/V. Burn Absent Trauma Absent GI Symptoms Nausea Current % PO Negligible Minimum of two criteria Yes Energy Intake (non-severe) <75% Estimated Energy Requirement >7 days Interpretation of Weight Loss (severe) >5% in 1 month #1 Nutrition Diagnosis Malnutrition Etiology Nausea, GERD As Evidenced by Signs and Symptoms <75% of energy requirement for >7 days weight loss >5% in one month Is patient on ventilator? No Is Patient Ambulatory and/or Out of Bed Yes REE-([place]-St. Jeor-ambulatory/OOB) [ [id number] [id number]] Calculation Used for Recommendations [place]-St Jeor Additional Notes PRO: 40-54g/day (0.6-0.8 g/kg) Fluid: per MD Nutrition Intervention Change Diet Order: Advance diet when medically feasible. Teaching Recipient Patient Learning Readiness Fair Teaching Methods Discussion Response to Teaching Verbalize understanding Barriers to Learning Cognitive/Verbal,Age related RD phone number provided No Goal #1 Advance diet when medically feasible. Anticipated Discharge Needs: Unknown Follow-Up By: 05/30/19 Additional Comments F/U for diet advancement; need for ONS.
[2019-05-29 19:35] LABS: Hematocrit 26.3 % (35.5-45.6); Hemoglobin 8.9 gm/dl (11.8-15.2)
[2019-05-29] MEDS: HEPARIN SUB-Q SCH (21:54)
[2019-05-30] MEDS: COLACE PO SCH ×3 (00:15→21:18)
[2019-05-30] MEDS: MIRALAX 3350 PO PRN (00:15)
[2019-05-30 05:52] LABS: Hematocrit 21.8 % (35.5-45.6); Hemoglobin 7.4 gm/dl (11.8-15.2); Lymphocytes # (Auto) 0.5 K/mm3 (1.2-5.4); Mean Corpuscular HGB Conc 34 % (32-34); Mean Corpuscular Volume 93 fl (84-94); Monocytes # (Auto) 0.5 K/mm3 (0.0-0.8); Monocytes % (Auto) 6.7 % (0.0-7.3); Platelet Count 242 K/mm3 (140-440); Red Blood Count 2.36 M/mm3 (3.65-5.03); Red Cell Distribution Width 18.8 % (13.2-15.2)
[2019-05-30 06:12] LABS: Calcium 7.1 mg/dL (8.4-10.2)
[2019-05-30] MEDS: HEPARIN SUB-Q SCH ×5 (10:52→21:18)
--- NOTE | 2019-05-30 13:14 | Progress Note ---
Assessment and Plan Severe renal failure, prerenal azotemia vs. 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 - So far Hep panel is negative and Schistocytes are negative - Urine eosinophils- none seen - Renal US- No hydronephrosis. Medical renal disease. - Iron panel ordered, consider consulting GI to r/o GI bleed - Renally dose meds - Strict I&O - Avoid nephrotoxic agents Williams Olea MD Subjective Date of service: 05/30/19 Principal diagnosis: severe renal failure Interval history: tolerating dialysis well Objective - Vital Signs Vital signs: Vital Signs - 12hr 05/30/19 05/30/19 05/30/19 03:19 08:08 11:00 Temperature 98.5 F 98.5 F Pulse Rate 96 H 88 81 Respiratory 18 16 Rate Blood Pressure 108/54 133/66 O2 Sat by Pulse 93 98 Oximetry 05/30/19 11:42 Temperature Pulse Rate Respiratory 18 Rate Blood Pressure O2 Sat by Pulse Oximetry - General Appearance General appearance: well-developed, well-nourished EENT: ATNC, PERRL, mucous membranes moist Neck: no JVD, no carotid bruit Respiratory: Present: Clear to Ascultation. Absent: Rales, Ronchi Cardiology: regular, S1S2 Gastrointestinal: normoactive bowel sounds Integumentary: no rash, warm and dry Neurologic: no focal deficit, no asterixis Musculoskeletal: other (no edema in BLE) Psychiatric: mood/affect appropriate, cooperative - Lab 05/30/19 05:29 05/30/19 05:29 Most recent lab results Calcium 7.1 mg/dL (8.4-10.2) L 05/30/19 05:29 Phosphorus 3.40 mg/dL (2.5-4.5) D 05/30/19 05:29 Magnesium 2.60 mg/dL (1.7-2.3) H 05/29/19 Unknown Urine Creatinine 94.0 mg/dL (0.1-20.0) H 05/29/19 05:50 Urine Creatinine 97.3 mg/dL (0.1-20.0) H 05/29/19 05:50 Urine Sodium 51 mmol/L 05/29/19 05:50 Urine Total Protein 296 mg/dL (5-11.8) H 05/29/19 05:50 Medications & Allergies - Medications Allergies/Adverse Reactions: Allergies No Known Allergies Allergy (Unverified 08/04/14 14:55) Active Medications: Generic Name Dose Route Start Last Admin Trade Name Freq PRN Reason Stop Dose Admin Docusate Sodium 100 mg 05/29/19 23:45 05/30/19 10:59 Colace PO 100 mg BID NIKOS Administration Heparin Sodium (Porcine) 5,000 unit 05/28/19 10:00 05/30/19 11:04 Heparin SUB-Q 5,000 unit Q12HR NIKOS Administration Sodium Chloride 1,000 mls @ 125 mls/hr 05/28/19 07:00 05/29/19 05:43 Nacl 0.9% 1000 Ml IV 125 mls/hr DIRECT NIKOS Administration Sodium Chloride 500 mls @ 0 mls/hr 05/30/19 13:30 Nacl 0.9% 500 Ml IV 05/30/19 20:00 ONCE NR As Directed Ondansetron HCl 4 mg 05/28/19 06:12 Zofran IV Q8H PRN Nausea And Vomiting Polyethylene Glycol 17 gm 05/29/19 23:56 05/30/19 00:15 Miralax 3350 PO 17 gm QDAY PRN Administration Constipation
[2019-05-30] MEDS ORDERED: NACL 0.9% 500 ML 500 ML IV NR (13:30)
[2019-05-30 14:11] LABS: INR 1.26 (0.87-1.13); Partial Thromboplastin Time 30.4 Sec. (24.2-36.6)
--- NOTE | 2019-05-30 15:39 | Progress Note ---
Assessment and Plan Assessment and plan: Patient is a 79 yo man with a history of tobacco dependency, GERD, OA on naproxen given by his PCP Dr. Naseem Orlando who presented to [facility] ED with weakness, poor appetite, N/V. He was found to be in severe acute renal failure BUN 187/Cr 13.6 with severe hyperkalemia, K+ 7.8. He was treated with hyperkalem ia cocktail including insulin, albuterol neb, calcium gluconate but not bicarbornate or kayexalate. The patient went to the telemetry floor where I saw him with his daughter Magdaleno and ex-. The phlembologist was at bedside. His repeat potassium was 7.3. I spoke with IR and Lactation Nurse; he will go for HD access placement for emergent hemodialysis. -Acute Renal failure, suspect ATN: d/w Nephrology, continue HD -Severe hyperkalemia improved with HD: monitor bmp closely -Hyponatremia, hypovolemia: treated with IVF -Severe Malnutrition, pt states he has been losing weight: consult Machine Worker -Suspected Acute Metabolic Encephalopathy, he just doesn't seem right, argu mentative, slightly confused. -Anemia, normocytic: transfused 2 units of PRBC, will transfuse 2 more units Renal Biopsy tomorrow, transfused more blood, FOBT pending CCT 31 mintues History Interval history: Patient was seen and examined. Follow-up on current diagnosis of ARF. No overnight events reported to me. Patient denies any chest pain, shortness breath, nausea/vomiting or severe headaches. Imaging, nursing note, chart, labs and old chart reviewed. Discussed with patient. Daughter Magdaleno at bedside. Hospitalist Physical - Physical exam Narrative exam: Gen: WDWN, NAD, Awake, Alert, Orientated x 3 but needs additional hints and he is stuttering, with difficulty finding words but he does not have aphasia HEENT: NCAT, EOMI, PERRL, OP Clear Neck: supple, no adenopathy, no thyromegaly, no JVD CVS/Heart: RRR, normal S1S2, pulses present bilaterally Chest/Lungs: CTA B, Symmetrical chest expansion, good air entry bilaterally GI/Abdomen: soft, NTND, good bowel sounds, no guarding or rebound /Bladder: no suprapubic tenderness, no CVA or paraspinal tenderness Extermity/Skin: no c/c/e, no obvious rash MSK: FROM x 4 Neuro: CN 2-12 grossly intact, no new focal deficits Psych: calm - Constitutional Vitals: Temp Pulse Resp BP Pulse Ox 98.4 F 93 H 16 123/70 98 05/30/19 13:08 05/30/19 13:08 05/30/19 13:08 05/30/19 13:08 05/30/19 13:08 Results - Labs CBC & Chem 7: 05/30/19 05:29 05/30/19 05:29 Labs: Laboratory Last Values WBC 7.9 K/mm3 (4.5-11.0) 05/30/19 05:29 RBC 2.36 M/mm3 (3.65-5.03) L 05/30/19 05:29 Hgb 7.4 gm/dl (11.8-15.2) L 05/30/19 05:29 Hct 21.8 % (35.5-45.6) L 05/30/19 05:29 MCV 93 fl (84-94) 05/30/19 05:29 MCH 31 pg (28-32) 05/30/19 05:29 MCHC 34 % (32-34) 05/30/19 05:29 RDW 18.8 % (13.2-15.2) H 05/30/19 05:29 Plt Count 242 K/mm3 (140-440) 05/30/19 05:29 Lymph % (Auto) 6.0 % (13.4-35.0) L 05/30/19 05:29 [place] % (Auto) 6.7 % (0.0-7.3) 05/30/19 05:29 Eos % (Auto) 0.0 % (0.0-4.3) 05/30/19 05:29 Baso % (Auto) 0.0 % (0.0-1.8) 05/30/19 05:29 Lymph # 0.5 K/mm3 (1.2-5.4) L 05/30/19 05:29 [place] # 0.5 K/mm3 (0.0-0.8) 05/30/19 05:29 Eos # 0.0 K/mm3 (0.0-0.4) 05/30/19 05:29 Baso # 0.0 K/mm3 (0.0-0.1) 05/30/19 05:29 Add Manual Diff Complete 05/28/19 04:52 Total Counted 100 05/28/19 04:52 Seg Neutrophils % 87.3 % (40.0-70.0) H 05/30/19 05:29 Seg Neuts % (Manual) 92.0 % (40.0-70.0) H 05/28/19 04:52 Band Neutrophils % 0 % 05/28/19 04:52 Lymphocytes % (Manual) 5.0 % (13.4-35.0) L 05/28/19 04:52 Reactive Lymphs % (Man) 0 % 05/28/19 04:52 Monocytes % (Manual) 3.0 % (0.0-7.3) 05/28/19 04:52 Eosinophils % (Manual) 0 % (0.0-4.3) 05/28/19 04:52 Basophils % (Manual) 0 % (0.0-1.8) 05/28/19 04:52 Metamyelocytes % 0 % 05/28/19 04:52 Myelocytes % 0 % 05/28/19 04:52 Promyelocytes % 0 % 05/28/19 04:52 Blast Cells % 0 % 05/28/19 04:52 Nucleated RBC % Not Reportable 05/28/19 04:52 Seg Neutrophils # 6.9 K/mm3 (1.8-7.7) 05/30/19 05:29 Seg Neutrophils # Man 9.5 K/mm3 (1.8-7.7) H 05/28/19 04:52 Band Neutrophils # 0.0 K/mm3 05/28/19 04:52 Lymphocytes # (Manual) 0.5 K/mm3 (1.2-5.4) L 05/28/19 04:52 Abs React Lymphs (Man) 0.0 K/mm3 05/28/19 04:52 Monocytes # (Manual) 0.3 K/mm3 (0.0-0.8) 05/28/19 04:52 Eosinophils # (Manual) 0.0 K/mm3 (0.0-0.4) 05/28/19 04:52 Basophils # (Manual) 0.0 K/mm3 (0.0-0.1) 05/28/19 04:52 Metamyelocytes # 0.0 K/mm3 05/28/19 04:52 Myelocytes # 0.0 K/mm3 05/28/19 04:52 Promyelocytes # 0.0 K/mm3 05/28/19 04:52 Blast Cells # 0.0 K/mm3 05/28/19 04:52 WBC Morphology Not Reportable 05/28/19 04:52 Hypersegmented Neuts Not Reportable 05/28/19 04:52 Hyposegmented Neuts Not Reportable 05/28/19 04:52 Hypogranular Neuts Not Reportable 05/28/19 04:52 Smudge Cells Not Reportable 05/28/19 04:52 Toxic Granulation Not Reportable 05/28/19 04:52 Toxic Vacuolation Not Reportable 05/28/19 04:52 Dohle Bodies Not Reportable 05/28/19 04:52 Pelger-Huet Anomaly Not Reportable 05/28/19 04:52 Brett Rods Not Reportable 05/28/19 04:52 Platelet Estimate Consistent w auto 05/28/19 04:52 Clumped Platelets Not Reportable 05/28/19 04:52 Plt Clumps, EDTA Not Reportable 05/28/19 04:52 Large Platelets Not Reportable 05/28/19 04:52 Giant Platelets Not Reportable 05/28/19 04:52 Platelet Satelliting Not Reportable 05/28/19 04:52 Plt Morphology Comment Not Reportable 05/28/19 04:52 RBC Morphology Not Reportable 05/28/19 04:52 Dimorphic RBCs Not Reportable 05/28/19 04:52 Polychromasia Not Reportable 05/28/19 04:52 Hypochromasia 1+ 05/28/19 04:52 Poikilocytosis Not Reportable 05/28/19 04:52 Anisocytosis 1+ 05/28/19 04:52 Microcytosis Not Reportable 05/28/19 04:52 Macrocytosis Not Reportable 05/28/19 04:52 Spherocytes Not Reportable 05/28/19 04:52 Pappenheimer Bodies Not Reportable 05/28/19 04:52 Sickle Cells Not Reportable 05/28/19 04:52 Target Cells Not Reportable 05/28/19 04:52 Tear Drop Cells Not Reportable 05/28/19 04:52 Ovalocytes Not Reportable 05/28/19 04:52 Helmet Cells Not Reportable 05/28/19 04:52 [place] Bodies Not Reportable 05/28/19 04:52 [place] Rings Not Reportable 05/28/19 04:52 [place] Cells Not Reportable 05/28/19 04:52 Bite Cells Not Reportable 05/28/19 04:52 Crenated Cell Not Reportable 05/28/19 04:52 Elliptocytes Not Reportable 05/28/19 04:52 Acanthocytes (Spur) Not Reportable 05/28/19 04:52 Rouleaux Not Reportable 05/28/19 04:52 Hemoglobin C Crystals Not Reportable 05/28/19 04:52 Schistocytes Not Reportable 05/28/19 04:52 Malaria parasites Not Reportable 05/28/19 04:52 M[place] Bodies Not Reportable 05/28/19 04:52 Hem Pathologist Commnt No 05/28/19 04:52 PT 15.5 Sec. (12.2-14.9) H 05/30/19 13:12 INR 1.26 (0.87-1.13) H 05/30/19 13:12 APTT 30.4 Sec. (24.2-36.6) 05/30/19 13:12 Sodium 135 mmol/L (137-145) L 05/30/19 05:29 Potassium 4.6 mmol/L (3.6-5.0) 05/30/19 05:29 Chloride 96.5 mmol/L (98-107) L 05/30/19 05:29 Carbon Dioxide 30 mmol/L (22-30) 05/30/19 05:29 Anion Gap 13 mmol/L 05/30/19 05:29 BUN 27 mg/dL (9-20) H 05/30/19 05:29 Creatinine 7.2 mg/dL (0.8-1.5) H 05/30/19 05:29 Estimated GFR 9 ml/min 05/30/19 05:29 BUN/Creatinine Ratio 4 % 05/30/19 05:29 Glucose 101 mg/dL (75-100) H 05/30/19 05:29 Calcium 7.1 mg/dL (8.4-10.2) L 05/30/19 05:29 Phosphorus 3.40 mg/dL (2.5-4.5) D 05/30/19 05:29 Magnesium 2.60 mg/dL (1.7-2.3) H 05/29/19 Unknown Ferritin > 2000.0 ng/mL (13.0-400.0) H 05/29/19 05:28 Total Bilirubin 0.30 mg/dL (0.1-1.2) 05/28/19 04:52 Direct Bilirubin < 0.2 mg/dL (0-0.2) 05/28/19 04:52 Indirect Bilirubin 0.1 mg/dL 05/28/19 04:52 AST 9 units/L (5-40) 05/28/19 04:52 ALT < 5 units/L (7-56) L 05/28/19 04:52 Alkaline Phosphatase 55 units/L (35-129) 05/28/19 04:52 Lactate Dehydrogenase 200 units/L (91-180) H 05/28/19 09:51 Total Creatine Kinase 80 units/L (55-170) 05/28/19 19:24 CK-MB (CK-2) 2.4 ng/mL (0.0-4.0) 05/28/19 19:24 CK-MB (CK-2) Rel Index 3.0 (0-4) 05/28/19 19:24 Troponin T 0.085 ng/mL (0.00-0.029) H 05/28/19 19:24 Total Protein 8.9 g/dL (6.3-8.2) H 05/28/19 04:52 Albumin 2.4 g/dL (3.9-5) L 05/28/19 04:52 Albumin/Globulin Ratio 0.4 % 05/28/19 04:52 Triglycerides 67 mg/dL (2-149) 05/28/19 04:52 Cholesterol 101 mg/dL (50-199) 05/28/19 04:52 LDL Cholesterol Direct 61 mg/dL (50-130) 05/28/19 04:52 HDL Cholesterol 25 mg/dL (40-59) L 05/28/19 04:52 Cholesterol/HDL Ratio 4.04 % 05/28/19 04:52 Lipase 161 units/L (13-60) H 05/28/19 05:03 Urine Color Yellow (Yellow) 05/29/19 05:50 Urine Turbidity Cloudy (Clear) 05/29/19 05:50 Urine pH 6.0 (5.0-7.0) 05/29/19 05:50 Ur Specific [place] 1.012 (1.003-1.030) 05/29/19 05:50 Urine Protein 100 mg/dl mg/dL (Negative) 05/29/19 05:50 Urine Glucose (UA) 50 mg/dL (Negative) 05/29/19 05:50 Urine Ketones Neg mg/dL (Negative) 05/29/19 05:50 Urine Blood Lg (Negative) 05/29/19 05:50 Urine Nitrite Neg (Negative) 05/29/19 05:50 Urine Bilirubin Neg (Negative) 05/29/19 05:50 Urine Urobilinogen < 2.0 mg/dL (<2.0) 05/29/19 05:50 Ur Leukocyte Esterase Tr (Negative) 05/29/19 05:50 Urine WBC (Auto) 10.0 /HPF (0.0-6.0) H 05/29/19 05:50 Urine RBC (Auto) 49.0 /HPF (0.0-6.0) 05/29/19 05:50 Urine Bacteria (Auto) 1+ /HPF (Negative) 05/29/19 05:50 Urine Mucus Few /HPF 05/29/19 05:50 Urine Eosinophils None seen (None Seen) 05/29/19 05:50 Urine Creatinine 94.0 mg/dL (0.1-20.0) H 05/29/19 05:50 Urine Creatinine 97.3 mg/dL (0.1-20.0) H 05/29/19 05:50 Protein/Creatinin Ratio 3.15 05/29/19 05:50 Urine Sodium 51 mmol/L 05/29/19 05:50 Urine Total Protein 296 mg/dL (5-11.8) H 05/29/19 05:50 Complement C3 117 mg/dL (82-185) 05/28/19 09:51 Complement C4 24 mg/dL (15-53) 05/28/19 09:51 Hepatitis A IgM Ab Non-reactive (NonReactive) 05/28/19 12:35 Hep Bs Antigen Non-reactive (Negative) 05/28/19 12:35 Hep B Core IgM Ab Non-reactive (NonReactive) 05/28/19 12:35 Hepatitis C Antibody Non-reactive (NonReactive) 05/28/19 12:35 Schistocytes Smear None seen 05/28/19 Unknown Blood Type A POSITIVE 05/29/19 10:20 Antibody Screen Negative 05/29/19 10:20 Crossmatch See Detail 05/29/19 10:20 Active Medications - Current Medications Current Medications: Generic Name Dose Route Start Last Admin Trade Name Freq PRN Reason Stop Dose Admin Docusate Sodium 100 mg 05/29/19 23:45 05/30/19 10:59 Colace PO 100 mg BID NIKOS Administration Epoetin Carlos 10,000 unit 05/30/19 13:13 Procrit IV BRADEN PRN hemodialysis Heparin Sodium (Porcine) 5,000 unit 05/28/19 10:00 05/30/19 11:04 Heparin SUB-Q 5,000 unit Q12HR NIKOS Administration Sodium Chloride 1,000 mls @ 125 mls/hr 05/28/19 07:00 05/29/19 05:43 Nacl 0.9% 1000 Ml IV 125 mls/hr DIRECT NIKOS Administration Sodium Chloride 500 mls @ 0 mls/hr 05/30/19 13:30 Nacl 0.9% 500 Ml IV 05/30/19 20:00 ONCE NR As Directed Ondansetron HCl 4 mg 05/28/19 06:12 Zofran IV Q8H PRN Nausea And Vomiting Polyethylene Glycol 17 gm 05/29/19 23:56 05/30/19 00:15 Miralax 3350 PO 17 gm QDAY PRN Administration Constipation Nutrition/Malnutrition Assess - Dietary Evaluation Nutrition/Malnutrition Findings: Nutrition Notes Start: 05/28/19 13:00 Freq: Status: Active Protocol: Document 05/30/19 14:02 AP (Rec: 05/30/19 14:50 AP [id number]) Co-Sign 05/30/19 14:02 LM Nutrition Notes Initial or Follow up Brief Note Current Diet NPO Labs/Tests Na 135 Bun 27 Ca 7 BG 101 Cl 96.5 Pertinent Medications Reviewed Height 5 ft 9 in Weight 75.1 kg [place] Body Weight (kg) 72.72 BMI 24.4 Intake Prior to Admission Poor Weight change and time frame Noted weight gain. Weight Status Appropriate Subjective/Other Information Pt had one round of HD yesterday. Daughter Magdaleno present in room and asking when pt could eat. Reached pt' s nurse who indicated charge nurse put pt on renal diet. However pt now NPO for kidney biopsy tomorrow. Burn Absent Trauma Absent GI Symptoms Nausea Current % PO Negligible #1 Nutrition Diagnosis Malnutrition Diagnosis Progress(for reassessment Continues documentation) Is patient on ventilator? No Is Patient Ambulatory and/or Out of Bed Yes REE-([facility]OOB) [ [id number] [id number]] Additional Notes PRO: 80-90g/day (1.2 g/kg) Fluid: 1ml/kcal/per MD Nutrition Intervention Change Diet Order: Renal diet when medically feasible. Goal #1 Pt meet >80% of kcal/PRO needs . Anticipated Discharge Needs: Renal diet Follow-Up By: 06/04/19 Additional Comments F/U for PO intakes; need for ONS, wt changes.
[2019-05-31 05:32] LABS: Basophils % (Auto) 0.2 % (0.0-1.8); Eosinophils % (Auto) 0.1 % (0.0-4.3); Hematocrit 27.4 % (35.5-45.6); Hemoglobin 9.2 gm/dl (11.8-15.2); Lymphocytes # (Auto) 0.7 K/mm3 (1.2-5.4); Lymphocytes % (Auto) 8.6 % (13.4-35.0); Mean Corpuscular HGB Conc 34 % (32-34); Mean Corpuscular Volume 93 fl (84-94); Monocytes # (Auto) 0.6 K/mm3 (0.0-0.8); Monocytes % (Auto) 6.6 % (0.0-7.3); Platelet Count 189 K/mm3 (140-440); Red Blood Count 2.94 M/mm3 (3.65-5.03); Red Cell Distribution Width 17.9 % (13.2-15.2)
[2019-05-31 05:58] LABS: Calcium 7.1 mg/dL (8.4-10.2)
[2019-05-31] MEDS ORDERED: DILAUDID IV NR (09:11)
[2019-05-31] MEDS ORDERED: ZOFRAN IV NR (09:11)
[2019-05-31] MEDS ORDERED: ZOFRAN ONE (09:22)
[2019-05-31] MEDS ORDERED: DILAUDID ONE (09:22)
[2019-05-31] MEDS: COLACE PO SCH ×2 (10:58→22:14)
[2019-05-31] MEDS: HEPARIN SUB-Q SCH ×2 (10:58→22:14)
--- NOTE | 2019-05-31 11:12 | Progress Note ---
Assessment and Plan Severe renal failure, prerenal azotemia vs. 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 Medical renal disease. - Iron panel ordered, consider consulting GI to r/o GI bleed, epogen with HD - Renally dose meds - Strict I&O - Avoid nephrotoxic agents Williams Olea MD [phone] Subjective Date of service: 05/31/19 Principal diagnosis: severe renal failure Interval history: tolerated kidney biopsy well, he was concerned about some financial issues and requesting to go home, I explained to him he just had kidney biopsy and it had increased risk of bleeding and does not comply with bed rest Objective - Vital Signs Vital signs: Vital Signs - 12hr 05/30/19 05/31/19 05/31/19 23:45 03:00 03:49 Temperature 99.6 F 98.6 F Pulse Rate 92 H 84 86 Pulse Rate [ Intra-Procedure ] Pulse Rate [ Post-Procedure] Respiratory 16 20 Rate Respiratory Rate [Intra- Procedure] Respiratory Rate [Post- Procedure] Blood Pressure 98/59 106/56 Blood Pressure [Intra- Procedure] Blood Pressure [Post-Procedure ] O2 Sat by Pulse 96 100 Oximetry O2 Sat by Pulse Oximetry [ Intra-Procedure ] O2 Sat by Pulse Oximetry [Post -Procedure] 05/31/19 05/31/19 05/31/19 07:57 10:02 10:10 Temperature 97.5 F L Pulse Rate Pulse Rate [ 83 82 Intra-Procedure ] Pulse Rate [ Post-Procedure] Respiratory 18 Rate Respiratory 18 24 Rate [Intra- Procedure] Respiratory Rate [Post- Procedure] Blood Pressure 113/65 Blood Pressure 129/68 126/63 [Intra- Procedure] Blood Pressure [Post-Procedure ] O2 Sat by Pulse Oximetry O2 Sat by Pulse 92 Oximetry [ Intra-Procedure ] O2 Sat by Pulse Oximetry [Post -Procedure] 05/31/19 05/31/19 10:20 10:30 Temperature Pulse Rate Pulse Rate [ Intra-Procedure ] Pulse Rate [ 82 82 Post-Procedure] Respiratory Rate Respiratory Rate [Intra- Procedure] Respiratory 18 13 Rate [Post- Procedure] Blood Pressure Blood Pressure [Intra- Procedure] Blood Pressure 126/63 127/63 [Post-Procedure ] O2 Sat by Pulse Oximetry O2 Sat by Pulse Oximetry [ Intra-Procedure ] O2 Sat by Pulse 100 100 Oximetry [Post -Procedure] - General Appearance General appearance: well-developed, well-nourished, appears stated age EENT: ATNC, PERRL, mucous membranes moist Neck: no JVD, no carotid bruit - Lab 05/31/19 04:47 05/31/19 04:47 Most recent lab results Calcium 7.1 mg/dL (8.4-10.2) L 05/31/19 04:47 Phosphorus 3.20 mg/dL (2.5-4.5) 05/31/19 04:47 Magnesium 2.60 mg/dL (1.7-2.3) H 05/29/19 Unknown Urine Creatinine 94.0 mg/dL (0.1-20.0) H 05/29/19 05:50 Urine Creatinine 97.3 mg/dL (0.1-20.0) H 05/29/19 05:50 Urine Sodium 51 mmol/L 05/29/19 05:50 Urine Total Protein 296 mg/dL (5-11.8) H 05/29/19 05:50 Medications & Allergies - Medications Allergies/Adverse Reactions: Allergies No Known Allergies Allergy (Unverified 08/04/14 14:55) Active Medications: Generic Name Dose Route Start Last Admin Trade Name Freq PRN Reason Stop Dose Admin Docusate Sodium 100 mg 05/29/19 23:45 05/31/19 10:58 Colace PO 100 mg BID NIKOS Administration Epoetin Carlos 10,000 unit 05/30/19 13:13 Procrit IV BRADEN PRN hemodialysis Heparin Sodium (Porcine) 5,000 unit 05/28/19 10:00 05/31/19 10:58 Heparin SUB-Q Not Given Q12HR [facility] Ondansetron HCl 4 mg 05/28/19 06:12 Zofran IV Q8H PRN Nausea And Vomiting Polyethylene Glycol 17 gm 05/29/19 23:56 05/30/19 00:15 Miralax 3350 PO 17 gm QDAY PRN Administration Constipation
--- NOTE | 2019-05-31 11:30 | Cat Scan Report ---
CT-GUIDED RENAL BIOPSY, LEFT INDICATION : kidney failure. COMPARISON: None PROCEDURE: The risks (including but not limited to bleeding and infection) and benefits were explain ed to the patient and informed consent was obtained. All CT scans at this location are performed usi ng CT dose reduction for JUNRA by means of automated exposure control. A time out procedure was performed. The procedure site was prepped and draped in the usual sterile f ashion and lidocaine was used for local anesthesia. Anxiolysis was accomplished with 1 mg of Dilaudid and 2 mg of Zofran intravenously. Using CT guidance, a 17-gauge introducer needle was advanced to the inferior pole of the left kidney. 2 separate 1.3 cm 18-gauge core biopsies were obtained for pathologic analysis. Follow-up scan demon strates no evidence for hemorrhage. The patient tolerated the procedure well with no complications. IMPRESSION: Successful CT-guided biopsy at the inferior pole of the left kidney. Signer Name: Sav Galeano Jr, MD Signed: 05/31/2019 11:26 AM Workstation Name: [id number]
[2019-05-31 12:41] LABS: ANA Screen, IFA Negative (Negative)
--- NOTE | 2019-05-31 17:32 | Progress Note ---
Assessment and Plan Assessment and plan: Patient is a 79 yo man with a history of tobacco dependency, GERD, OA on naproxen given by his PCP Dr. Naseem Orlando who presented to [facility] ED with weakness, poor appetite, N/V. He was found to be in severe acute renal failure BUN 187/Cr 13.6 with severe hyperkalemia, K+ 7.8. He was treated with hyperkalem ia cocktail including insulin, albuterol neb, calcium gluconate but not bicarbornate or kayexalate. The patient went to the telemetry floor where I saw him with his daughter Magdaleno and ex-. The phlembologist was at bedside. His repeat potassium was 7.3. I spoke with IR and Sand Bobber; he will go for HD access placement for emergent hemodialysis. -Acute Renal failure, suspect ATN: d/w Nephrology, continue HD -Severe hyperkalemia improved with HD: monitor bmp closely -Hyponatremia, hypovolemia: treated with IVF -Severe Malnutrition, pt states he has been losing weight: consult Pasteuriser Operator -Suspected Acute Metabolic Encephalopathy, he just doesn't seem right, argu mentative, slightly confused. Consulted Neurology, ordered MRI brain but he was unable to complete screening, so ordered CT head. -Anemia, normocytic: transfused 2 units of PRBC, will transfuse 2 more units Renal Biopsy done FOBT positive; consult GI, monitor CBC History Interval history: Patient was seen and examined. Follow-up on current diagnosis of ARF. No overnight events reported to me. Patient denies any chest pain, shortness breath, nausea/vomiting or severe headaches. Imaging, nursing note, chart, labs and old chart reviewed. Discussed with patient. No family at bedside, I spoke with Daughter Magdaleno at nursing station earlier. Hospitalist Physical - Physical exam Narrative exam: Gen: WDWN, NAD, Awake, Alert, Orientated x 3 but needs additional hints and he is stuttering, with difficulty finding words but he does not have aphasia HEENT: NCAT, EOMI, PERRL, OP Clear Neck: supple, no adenopathy, no thyromegaly, no JVD CVS/Heart: RRR, normal S1S2, pulses present bilaterally Chest/Lungs: CTA B, Symmetrical chest expansion, good air entry bilaterally GI/Abdomen: soft, NTND, good bowel sounds, no guarding or rebound /Bladder: no suprapubic tenderness, no CVA or paraspinal tenderness Extermity/Skin: no c/c/e, no obvious rash MSK: FROM x 4 Neuro: CN 2-12 grossly intact, no new focal deficits Psych: calm - Constitutional Vitals: Temp Pulse Resp BP Pulse Ox 98.0 F 68 19 124/60 98 05/31/19 12:00 05/31/19 12:00 05/31/19 12:00 05/31/19 12:00 05/31/19 12:00 Results - Labs CBC & Chem 7: 05/31/19 04:47 05/31/19 04:47 Labs: Laboratory Last Values WBC 8.3 K/mm3 (4.5-11.0) 05/31/19 04:47 RBC 2.94 M/mm3 (3.65-5.03) L 05/31/19 04:47 Hgb 9.2 gm/dl (11.8-15.2) L 05/31/19 04:47 Hct 27.4 % (35.5-45.6) L 05/31/19 04:47 MCV 93 fl (84-94) 05/31/19 04:47 MCH 31 pg (28-32) 05/31/19 04:47 MCHC 34 % (32-34) 05/31/19 04:47 RDW 17.9 % (13.2-15.2) H 05/31/19 04:47 Plt Count 189 K/mm3 (140-440) 05/31/19 04:47 Lymph % (Auto) 8.6 % (13.4-35.0) L 05/31/19 04:47 Isabella % (Auto) 6.6 % (0.0-7.3) 05/31/19 04:47 Eos % (Auto) 0.1 % (0.0-4.3) 05/31/19 04:47 Baso % (Auto) 0.2 % (0.0-1.8) 05/31/19 04:47 Lymph # 0.7 K/mm3 (1.2-5.4) L 05/31/19 04:47 Isabella # 0.6 K/mm3 (0.0-0.8) 05/31/19 04:47 Eos # 0.0 K/mm3 (0.0-0.4) 05/31/19 04:47 Baso # 0.0 K/mm3 (0.0-0.1) 05/31/19 04:47 Add Manual Diff Complete 05/28/19 04:52 Total Counted 100 05/28/19 04:52 Seg Neutrophils % 84.5 % (40.0-70.0) H 05/31/19 04:47 Seg Neuts % (Manual) 92.0 % (40.0-70.0) H 05/28/19 04:52 Band Neutrophils % 0 % 05/28/19 04:52 Lymphocytes % (Manual) 5.0 % (13.4-35.0) L 05/28/19 04:52 Reactive Lymphs % (Man) 0 % 05/28/19 04:52 Monocytes % (Manual) 3.0 % (0.0-7.3) 05/28/19 04:52 Eosinophils % (Manual) 0 % (0.0-4.3) 05/28/19 04:52 Basophils % (Manual) 0 % (0.0-1.8) 05/28/19 04:52 Metamyelocytes % 0 % 05/28/19 04:52 Myelocytes % 0 % 05/28/19 04:52 Promyelocytes % 0 % 05/28/19 04:52 Blast Cells % 0 % 05/28/19 04:52 Nucleated RBC % Not Reportable 05/28/19 04:52 Seg Neutrophils # 7.0 K/mm3 (1.8-7.7) 05/31/19 04:47 Seg Neutrophils # Man 9.5 K/mm3 (1.8-7.7) H 05/28/19 04:52 Band Neutrophils # 0.0 K/mm3 05/28/19 04:52 Lymphocytes # (Manual) 0.5 K/mm3 (1.2-5.4) L 05/28/19 04:52 Abs React Lymphs (Man) 0.0 K/mm3 05/28/19 04:52 Monocytes # (Manual) 0.3 K/mm3 (0.0-0.8) 05/28/19 04:52 Eosinophils # (Manual) 0.0 K/mm3 (0.0-0.4) 05/28/19 04:52 Basophils # (Manual) 0.0 K/mm3 (0.0-0.1) 05/28/19 04:52 Metamyelocytes # 0.0 K/mm3 05/28/19 04:52 Myelocytes # 0.0 K/mm3 05/28/19 04:52 Promyelocytes # 0.0 K/mm3 05/28/19 04:52 Blast Cells # 0.0 K/mm3 05/28/19 04:52 WBC Morphology Not Reportable 05/28/19 04:52 Hypersegmented Neuts Not Reportable 05/28/19 04:52 Hyposegmented Neuts Not Reportable 05/28/19 04:52 Hypogranular Neuts Not Reportable 05/28/19 04:52 Smudge Cells Not Reportable 05/28/19 04:52 Toxic Granulation Not Reportable 05/28/19 04:52 Toxic Vacuolation Not Reportable 05/28/19 04:52 Dohle Bodies Not Reportable 05/28/19 04:52 Pelger-Huet Anomaly Not Reportable 05/28/19 04:52 Brett Rods Not Reportable 05/28/19 04:52 Platelet Estimate Consistent w auto 05/28/19 04:52 Clumped Platelets Not Reportable 05/28/19 04:52 Plt Clumps, EDTA Not Reportable 05/28/19 04:52 Large Platelets Not Reportable 05/28/19 04:52 Giant Platelets Not Reportable 05/28/19 04:52 Platelet Satelliting Not Reportable 05/28/19 04:52 Plt Morphology Comment Not Reportable 05/28/19 04:52 RBC Morphology Not Reportable 05/28/19 04:52 Dimorphic RBCs Not Reportable 05/28/19 04:52 Polychromasia Not Reportable 05/28/19 04:52 Hypochromasia 1+ 05/28/19 04:52 Poikilocytosis Not Reportable 05/28/19 04:52 Anisocytosis 1+ 05/28/19 04:52 Microcytosis Not Reportable 05/28/19 04:52 Macrocytosis Not Reportable 05/28/19 04:52 Spherocytes Not Reportable 05/28/19 04:52 Pappenheimer Bodies Not Reportable 05/28/19 04:52 Sickle Cells Not Reportable 05/28/19 04:52 Target Cells Not Reportable 05/28/19 04:52 Tear Drop Cells Not Reportable 05/28/19 04:52 Ovalocytes Not Reportable 05/28/19 04:52 Helmet Cells Not Reportable 05/28/19 04:52 [place] Bodies Not Reportable 05/28/19 04:52 [place] Rings Not Reportable 05/28/19 04:52 [place] Cells Not Reportable 05/28/19 04:52 Bite Cells Not Reportable 05/28/19 04:52 Crenated Cell Not Reportable 05/28/19 04:52 Elliptocytes Not Reportable 05/28/19 04:52 Acanthocytes (Spur) Not Reportable 05/28/19 04:52 Rouleaux Not Reportable 05/28/19 04:52 Hemoglobin C Crystals Not Reportable 05/28/19 04:52 Schistocytes Not Reportable 05/28/19 04:52 Malaria parasites Not Reportable 05/28/19 04:52 Mynor Bodies Not Reportable 05/28/19 04:52 Hem Pathologist Commnt No 05/28/19 04:52 PT 15.5 Sec. (12.2-14.9) H 05/30/19 13:12 INR 1.26 (0.87-1.13) H 05/30/19 13:12 APTT 30.4 Sec. (24.2-36.6) 05/30/19 13:12 Sodium 137 mmol/L (137-145) 05/31/19 04:47 Potassium 4.2 mmol/L (3.6-5.0) 05/31/19 04:47 Chloride 99.1 mmol/L (98-107) 05/31/19 04:47 Carbon Dioxide 27 mmol/L (22-30) 05/31/19 04:47 Anion Gap 15 mmol/L 05/31/19 04:47 BUN 16 mg/dL (9-20) 05/31/19 04:47 Creatinine 5.2 mg/dL (0.8-1.5) H 05/31/19 04:47 Estimated GFR 13 ml/min 05/31/19 04:47 BUN/Creatinine Ratio 3 % 05/31/19 04:47 Glucose 86 mg/dL (75-100) 05/31/19 04:47 Calcium 7.1 mg/dL (8.4-10.2) L 05/31/19 04:47 Phosphorus 3.20 mg/dL (2.5-4.5) 05/31/19 04:47 Magnesium 2.60 mg/dL (1.7-2.3) H 05/29/19 Unknown Ferritin > 2000.0 ng/mL (13.0-400.0) H 05/29/19 05:28 Total Bilirubin 0.30 mg/dL (0.1-1.2) 05/28/19 04:52 Direct Bilirubin < 0.2 mg/dL (0-0.2) 05/28/19 04:52 Indirect Bilirubin 0.1 mg/dL 05/28/19 04:52 AST 9 units/L (5-40) 05/28/19 04:52 ALT < 5 units/L (7-56) L 05/28/19 04:52 Alkaline Phosphatase 55 units/L (35-129) 05/28/19 04:52 Lactate Dehydrogenase 200 units/L (91-180) H 05/28/19 09:51 Total Creatine Kinase 80 units/L (55-170) 05/28/19 19:24 CK-MB (CK-2) 2.4 ng/mL (0.0-4.0) 05/28/19 19:24 CK-MB (CK-2) Rel Index 3.0 (0-4) 05/28/19 19:24 Troponin T 0.085 ng/mL (0.00-0.029) H 05/28/19 19:24 Total Protein 8.9 g/dL (6.3-8.2) H 05/28/19 04:52 Albumin 2.4 g/dL (3.9-5) L 05/28/19 04:52 Albumin/Globulin Ratio 0.4 % 05/28/19 04:52 Triglycerides 67 mg/dL (2-149) 05/28/19 04:52 Cholesterol 101 mg/dL (50-199) 05/28/19 04:52 LDL Cholesterol Direct 61 mg/dL (50-130) 05/28/19 04:52 HDL Cholesterol 25 mg/dL (40-59) L 05/28/19 04:52 Cholesterol/HDL Ratio 4.04 % 05/28/19 04:52 Lipase 161 units/L (13-60) H 05/28/19 05:03 Urine Color Yellow (Yellow) 05/29/19 05:50 Urine Turbidity Cloudy (Clear) 05/29/19 05:50 Urine pH 6.0 (5.0-7.0) 05/29/19 05:50 Ur Specific Henning 1.012 (1.003-1.030) 05/29/19 05:50 Urine Protein 100 mg/dl mg/dL (Negative) 05/29/19 05:50 Urine Glucose (UA) 50 mg/dL (Negative) 05/29/19 05:50 Urine Ketones Neg mg/dL (Negative) 05/29/19 05:50 Urine Blood Lg (Negative) 05/29/19 05:50 Urine Nitrite Neg (Negative) 05/29/19 05:50 Urine Bilirubin Neg (Negative) 05/29/19 05:50 Urine Urobilinogen < 2.0 mg/dL (<2.0) 05/29/19 05:50 Ur Leukocyte Esterase Tr (Negative) 05/29/19 05:50 Urine WBC (Auto) 10.0 /HPF (0.0-6.0) H 05/29/19 05:50 Urine RBC (Auto) 49.0 /HPF (0.0-6.0) 05/29/19 05:50 Urine Bacteria (Auto) 1+ /HPF (Negative) 05/29/19 05:50 Urine Mucus Few /HPF 05/29/19 05:50 Urine Eosinophils None seen (None Seen) 05/29/19 05:50 Urine Creatinine 94.0 mg/dL (0.1-20.0) H 05/29/19 05:50 Urine Creatinine 97.3 mg/dL (0.1-20.0) H 05/29/19 05:50 Protein/Creatinin Ratio 3.15 05/29/19 05:50 Urine Sodium 51 mmol/L 05/29/19 05:50 Urine Total Protein 296 mg/dL (5-11.8) H 05/29/19 05:50 NANDINI Screen Negative (Negative) 05/28/19 09:51 Complement C3 117 mg/dL (82-185) 05/28/19 09:51 Complement C4 24 mg/dL (15-53) 05/28/19 09:51 Hepatitis A IgM Ab Non-reactive (NonReactive) 05/28/19 12:35 Hep Bs Antigen Non-reactive (Negative) 05/28/19 12:35 Hep B Core IgM Ab Non-reactive (NonReactive) 05/28/19 12:35 Hepatitis C Antibody Non-reactive (NonReactive) 05/28/19 12:35 Schistocytes Smear None seen 05/28/19 Unknown Blood Type A POSITIVE 05/29/19 10:20 Antibody Screen Negative 05/29/19 10:20 Crossmatch See Detail 05/29/19 10:20 Active Medications - Current Medications Current Medications: Generic Name Dose Route Start Last Admin Trade Name Freq PRN Reason Stop Dose Admin Docusate Sodium 100 mg 05/29/19 23:45 05/31/19 10:58 Colace PO 100 mg BID NIKOS Administration Epoetin Carlos 10,000 unit 05/30/19 13:13 Procrit IV BRADEN PRN hemodialysis Heparin Sodium (Porcine) 5,000 unit 05/28/19 10:00 05/31/19 10:58 Heparin SUB-Q Not Given Q12HR NIKOS Ondansetron HCl 4 mg 05/28/19 06:12 Zofran IV Q8H PRN Nausea And Vomiting Polyethylene Glycol 17 gm 05/29/19 23:56 05/30/19 00:15 Miralax 3350 PO 17 gm QDAY PRN Administration Constipation Nutrition/Malnutrition Assess - Dietary Evaluation Nutrition/Malnutrition Findings: Nutrition Notes Start: 05/28/19 13:00 Freq: Status: Active Protocol: Document 05/30/19 14:02 AP (Rec: 05/30/19 14:50 AP [id number]) Co-Sign 05/30/19 14:02 LM Nutrition Notes Initial or Follow up Brief Note Current Diet NPO Labs/Tests Na 135 Bun 27 Ca 7 BG 101 Cl 96.5 Pertinent Medications Reviewed Height 5 ft 9 in Weight 75.1 kg Andrews Body Weight (kg) 72.72 BMI 24.4 Intake Prior to Admission Poor Weight change and time frame Noted weight gain. Weight Status Appropriate Subjective/Other Information Pt had one round of HD yesterday. Daughter Magdaleno present in room and asking when pt could eat. Reached pt' s nurse who indicated charge nurse put pt on renal diet. However pt now NPO for kidney biopsy tomorrow. Burn Absent Trauma Absent GI Symptoms Nausea Current % PO Negligible #1 Nutrition Diagnosis Malnutrition Diagnosis Progress(for reassessment Continues documentation) Is patient on ventilator? No Is Patient Ambulatory and/or Out of Bed Yes REE-([place] Jeor-ambulatory/OOB) [ [id number]] Additional Notes PRO: 80-90g/day (1.2 g/kg) Fluid: 1ml/kcal/per MD Nutrition Intervention Change Diet Order: Renal diet when medically feasible. Goal #1 Pt meet >80% of kcal/PRO needs . Anticipated Discharge Needs: Renal diet Follow-Up By: 06/04/19 Additional Comments F/U for PO intakes; need for ONS, wt changes.
--- NOTE | 2019-05-31 20:55 | Consultation ---
History of Present Illness Consult date: 05/31/19 Reason for Consult: Altered mental status Chief complaint: Altered mental status History of present illness: Patient is 79-year-old man with a history of GERD. He presented on 05/28/2019 with symptoms of nausea and vomiting, and was discovered to have acute renal failure, hyponatremia, hypokalemia, and anemia. Since admission, the patient has required to have hemodialysis and PRBC transfusion. Neurology was consulted for possible altered mental status. In discussion with the patient's family at bedside and the patient himself, family stated that throughout the course of admission, they have not noticed any change in mental status. They state that he has been at his baseline of mental status throughout admission, and that at baseline, he has a somewhat irritable temperament. Notably, they have not notic ed any confusion. Past History Past Medical History: GERD Social history: Lives alone Family history: no significant family history Medications and Allergies Allergies Allergy/AdvReac Type Severity Reaction Status Date / Time No Known Allergies Allergy Unverified 08/04/14 14:55 Active Meds: Active Medications Docusate Sodium (Colace) 100 mg PO BID [facility] Last Admin: 05/31/19 10:58 Dose: 100 mg Documented by: Epoetin Carlos (Procrit) 10,000 unit IV BRADEN PRN PRN Reason: hemodialysis Heparin Sodium (Porcine) (Heparin) 5,000 unit SUB-Q Q12HR [facility] Last Admin: 05/31/19 10:58 Dose: Not Given Documented by: Ondansetron HCl (Zofran) 4 mg IV Q8H PRN PRN Reason: Nausea And Vomiting Polyethylene Glycol (Miralax 3350) 17 gm PO QDAY PRN PRN Reason: Constipation Last Admin: 05/30/19 00:15 Dose: 17 gm Documented by: Review of Systems All systems: negative Gastrointestinal: nausea, vomiting Physical Examination - Vital Signs Vital Signs: Vital Signs Pulse Ox 94 05/28/19 04:20 - Physical Exam Narrative exam: Patient is alert, awake, oriented 4, follows complex commands. Visual kapadia full, pupils equal, round, reactive to light, tongue midline, no facial weakness noted, EOMI, bilaterally intact to light touch. 5/5 strength noted in all extremities. Bilaterally intact light touch in all extremities. A lateral intact to finger to nose and heel to govea. 2+ reflexes throughout. No dysarthria or aphasia noted. - Constitutional General appearance: comfortable - EENT EENT: Present: ATNC, PERRL, mucous membranes moist, hearing intact, vision in tact - Respiratory Respiratory: Present: lungs clear, normal breath sounds - Cardiovascular Cardiovascular: Present: regular rate, normal S1, normal S2 Extremities: Present: no clubbing, cyanosis, no inflammation - Gastrointestinal Gastrointestinal: Present: normoactive bowel sounds, soft, non-tender - Integumentary Integumentary: Present: normal - Musculoskeletal Musculoskeletal: Present: no fluid collection, no pain - Psychiatric Psychiatric: Present: mood/affect appropriate, cooperative Results - Laboratory Findings CBC and BMP: 05/31/19 04:47 05/31/19 04:47 Abnormal Lab Findings: Abnormal Labs 05/28/19 05/28/19 05/28/19 04:52 04:52 04:52 RBC 2.12 L Hgb 7.2 L Hct 20.6 L MCV 97 H MCH 34 H MCHC 35 H RDW Lymph % (Auto) Lymph # Seg Neutrophils % Seg Neuts % (Manual) 92.0 H Lymphocytes % (Manual) 5.0 L Seg Neutrophils # Man 9.5 H Lymphocytes # (Manual) 0.5 L PT INR Sodium 128 L Potassium 7.8 H* Chloride 79.7 L Carbon Dioxide 20 L BUN 187 H Creatinine 31.6 H Glucose Calcium 7.5 L Phosphorus Magnesium 5.00 H Ferritin ALT Lactate Dehydrogenase Troponin T 0.101 H* 0.097 H Total Protein Albumin HDL Cholesterol 25 L Lipase Urine WBC (Auto) Urine Creatinine Urine Total Protein Crossmatch 05/28/19 05/28/19 05/28/19 04:52 05:03 09:51 RBC Hgb Hct MCV MCH MCHC RDW Lymph % (Auto) Lymph # Seg Neutrophils % Seg Neuts % (Manual) Lymphocytes % (Manual) Seg Neutrophils # Man Lymphocytes # (Manual) PT INR Sodium 128 L Potassium 7.3 H* Chloride 84.3 L Carbon Dioxide 19 L BUN 184 H Creatinine 30.1 H Glucose Calcium 7.7 L Phosphorus Magnesium Ferritin ALT < 5 L Lactate Dehydrogenase Troponin T Total Protein 8.9 H Albumin 2.4 L HDL Cholesterol Lipase 161 H Urine WBC (Auto) Urine Creatinine Urine Total Protein Crossmatch 05/28/19 05/28/19 05/28/19 09:51 12:35 19:24 RBC Hgb Hct MCV MCH MCHC RDW Lymph % (Auto) Lymph # Seg Neutrophils % Seg Neuts % (Manual) Lymphocytes % (Manual) Seg Neutrophils # Man Lymphocytes # (Manual) PT INR Sodium Potassium Chloride Carbon Dioxide BUN Creatinine Glucose Calcium Phosphorus Magnesium Ferritin ALT Lactate Dehydrogenase 200 H Troponin T 0.089 H 0.085 H Total Protein Albumin HDL Cholesterol Lipase Urine WBC (Auto) Urine Creatinine Urine Total Protein Crossmatch 05/29/19 05/29/19 05/29/19 05:28 05:28 05:28 RBC 1.77 L Hgb 5.8 L* Hct 17.3 L* MCV 97 H MCH 33 H MCHC RDW 15.3 H Lymph % (Auto) 7.6 L Lymph # 0.6 L Seg Neutrophils % 85.3 H Seg Neuts % (Manual) Lymphocytes % (Manual) Seg Neutrophils # Man Lymphocytes # (Manual) PT INR Sodium 132 L Potassium 5.3 H D Chloride 89.4 L Carbon Dioxide BUN 60 H Creatinine 12.2 H D Glucose 111 H Calcium 7.4 L Phosphorus 6.90 H Magnesium Ferritin > 2000.0 H ALT Lactate Dehydrogenase Troponin T Total Protein Albumin HDL Cholesterol Lipase Urine WBC (Auto) Urine Creatinine Urine Total Protein Crossmatch 05/29/19 05/29/19 05/29/19 05:50 05:50 05:50 RBC Hgb Hct MCV MCH MCHC RDW Lymph % (Auto) Lymph # Seg Neutrophils % Seg Neuts % (Manual) Lymphocytes % (Manual) Seg Neutrophils # Man Lymphocytes # (Manual) PT INR Sodium Potassium Chloride Carbon Dioxide BUN Creatinine Glucose Calcium Phosphorus Magnesium Ferritin ALT Lactate Dehydrogenase Troponin T Total Protein Albumin HDL Cholesterol Lipase Urine WBC (Auto) 10.0 H Urine Creatinine 97.3 H 94.0 H Urine Total Protein 296 H Crossmatch 05/29/19 05/29/19 05/29/19 10:20 18:58 Unknown RBC Hgb 8.9 L D Hct 26.3 L D MCV MCH MCHC RDW Lymph % (Auto) Lymph # Seg Neutrophils % Seg Neuts % (Manual) Lymphocytes % (Manual) Seg Neutrophils # Man Lymphocytes # (Manual) PT INR Sodium Potassium Chloride Carbon Dioxide BUN Creatinine Glucose Calcium Phosphorus Magnesium 2.60 H Ferritin ALT Lactate Dehydrogenase Troponin T Total Protein Albumin HDL Cholesterol Lipase Urine WBC (Auto) Urine Creatinine Urine Total Protein Crossmatch See Detail 05/30/19 05/30/19 05/30/19 05:29 05:29 13:12 RBC 2.36 L Hgb 7.4 L Hct 21.8 L MCV MCH MCHC RDW 18.8 H Lymph % (Auto) 6.0 L Lymph # 0.5 L Seg Neutrophils % 87.3 H Seg Neuts % (Manual) Lymphocytes % (Manual) Seg Neutrophils # Man Lymphocytes # (Manual) PT 15.5 H INR 1.26 H Sodium 135 L Potassium Chloride 96.5 L Carbon Dioxide BUN 27 H Creatinine 7.2 H Glucose 101 H Calcium 7.1 L Phosphorus Magnesium Ferritin ALT Lactate Dehydrogenase Troponin T Total Protein Albumin HDL Cholesterol Lipase Urine WBC (Auto) Urine Creatinine Urine Total Protein Crossmatch 05/31/19 05/31/19 04:47 04:47 RBC 2.94 L Hgb 9.2 L Hct 27.4 L MCV MCH MCHC RDW 17.9 H Lymph % (Auto) 8.6 L Lymph # 0.7 L Seg Neutrophils % 84.5 H Seg Neuts % (Manual) Lymphocytes % (Manual) Seg Neutrophils # Man Lymphocytes # (Manual) PT INR Sodium Potassium Chloride Carbon Dioxide BUN Creatinine 5.2 H Glucose Calcium 7.1 L Phosphorus Magnesium Ferritin ALT Lactate Dehydrogenase Troponin T Total Protein Albumin HDL Cholesterol Lipase Urine WBC (Auto) Urine Creatinine Urine Total Protein Crossmatch Assessment and Plan Patient is 79-year-old man with a history of GERD. He presented on 05/28/2019 with symptoms of nausea and vomiting, and was discovered to have acute renal failure, hyponatremia, hypokalemia, and anemia. Since admission, the patient has required to have hemodialysis and PRBC transfusion. According patient's clinical findings, and in discussion with his family at bedside, the patient does not have any evidence of encephalopathy or altered mental status, as he is alert, oriented 4, and is following complex commands. Family at bedside stated that he is easily angered, however this has been his temperament at baseline. Plan: 1. Irritability: - In discussion with patient and his family, it was found that patient at baseline has a somewhat irritable personality, and he is usually easily angered. On objective examination, he is oriented 4, and is following complex commands. He recalls recent and remote events. It is therefore felt that the patient does not currently have any evidence of encephalopathy. The patient initially had some evidence of encephalopathy on admission, this may have been due to metabolic encephalopathy, as the patient is in acute renal failure, hyponatremia, and anemia. - Would not recommend any further neurologic investigations at this time, as the patient's family states that he is at his baseline of mental status. - Will sign off, as the patient is at baseline of mental status. If there is a change in patient's mental status, would recommend for neurologist covering the weekend to be consulted, as I will not be covering the neurology service over the weekend. Please call with any questions. - Continue to correct metabolic abnormalities per primary team and nephrology. Thank you for allowing me to take part in the care of this patient. Juni Rizo MD Neurology
[2019-06-01 07:19] LABS: Basophils % (Auto) 0.2 % (0.0-1.8); Eosinophils % (Auto) 0.1 % (0.0-4.3); Hematocrit 26.9 % (35.5-45.6); Hemoglobin 9.1 gm/dl (11.8-15.2); Lymphocytes # (Auto) 0.6 K/mm3 (1.2-5.4); Lymphocytes % (Auto) 5.7 % (13.4-35.0); Mean Corpuscular HGB Conc 34 % (32-34); Mean Corpuscular Volume 93 fl (84-94); Monocytes # (Auto) 0.6 K/mm3 (0.0-0.8); Monocytes % (Auto) 5.4 % (0.0-7.3); Platelet Count 164 K/mm3 (140-440); Red Blood Count 2.88 M/mm3 (3.65-5.03); Red Cell Distribution Width 17.5 % (13.2-15.2)
[2019-06-01 07:32] LABS: Calcium 7.3 mg/dL (8.4-10.2)
--- NOTE | 2019-06-01 08:39 | Progress Note ---
Assessment and Plan Severe renal failure, prerenal azotemia vs. ATN from dehydration and NSAIDs Hyperkalemia secondary to DMITRIY Anemia, possible secondary to CKD Nausea and vomiting with elevated lipase - cont to have severe renal failure, rising Cr and BUN but improved UOP, HD today for clearance only - will check 24 urine creatinine clearance tomorrow, will likely need permcath on Monday/Monday if no improvement - s/p kidney biopsy, results may take up to 5 days - Secondary GN, paraprotein and vasculitis work up in progress - So far Hep panel is negative Schistocytes, NANDINI are negative with normal complement - Urine eosinophils- none seen - Renal US- No hydronephrosis. Medical renal disease. - Iron panel ordered, consider consulting GI to r/o GI bleed, epogen with HD - Renally dose meds - Strict I&O - Avoid nephrotoxic agents Williams Olea MD [phone] Subjective Date of service: 06/01/19 Principal diagnosis: severe renal failure Interval history: denies acute issues Objective - Vital Signs Vital signs: Vital Signs - 12hr 05/31/19 05/31/19 06/01/19 20:45 23:49 04:09 Temperature 97.5 F L 98.7 F Pulse Rate 89 90 Respiratory 20 18 16 Rate Blood Pressure 128/63 120/66 O2 Sat by Pulse 97 100 95 Oximetry - General Appearance General appearance: well-developed, well-nourished EENT: ATNC, PERRL, mucous membranes moist Neck: no JVD, no carotid bruit Respiratory: Present: Clear to Ascultation. Absent: Rales, Ronchi Cardiology: regular, S1S2 Gastrointestinal: normoactive bowel sounds Integumentary: no rash, warm and dry Neurologic: no focal deficit, no asterixis, alert and oriented x3 Musculoskeletal: other (no edema in BLE) Psychiatric: mood/affect appropriate, cooperative - Lab 06/01/19 06:53 06/01/19 06:53 Most recent lab results Calcium 7.3 mg/dL (8.4-10.2) L 06/01/19 06:53 Phosphorus 4.20 mg/dL (2.5-4.5) D 06/01/19 06:53 Magnesium 1.50 mg/dL (1.7-2.3) L 05/31/19 06:00 Urine Creatinine 94.0 mg/dL (0.1-20.0) H 05/29/19 05:50 Urine Creatinine 97.3 mg/dL (0.1-20.0) H 05/29/19 05:50 Urine Sodium 51 mmol/L 05/29/19 05:50 Urine Total Protein 296 mg/dL (5-11.8) H 05/29/19 05:50 Medications & Allergies - Medications Allergies/Adverse Reactions: Allergies No Known Allergies Allergy (Unverified 08/04/14 14:55) Active Medications: Generic Name Dose Route Start Last Admin Trade Name Freq PRN Reason Stop Dose Admin Docusate Sodium 100 mg 05/29/19 23:45 05/31/19 22:14 Colace PO Not Given BID [facility] Epoetin Carlos 10,000 unit 05/30/19 13:13 Procrit IV BRADEN PRN hemodialysis Heparin Sodium (Porcine) 5,000 unit 05/28/19 10:00 05/31/19 22:14 Heparin SUB-Q Not Given Q12HR [facility] Ondansetron HCl 4 mg 05/28/19 06:12 Zofran IV Q8H PRN Nausea And Vomiting Polyethylene Glycol 17 gm 05/29/19 23:56 05/30/19 00:15 Miralax 3350 PO 17 gm QDAY PRN Administration Constipation
[2019-06-01] MEDS: HEPARIN SUB-Q SCH ×2 (10:00→22:31)
[2019-06-01] MEDS: COLACE PO SCH ×2 (10:00→22:31)
--- NOTE | 2019-06-01 11:26 | Progress Note ---
Assessment and Plan Assessment and plan: Patient is a 79 yo man with a history of tobacco dependency, GERD, OA on naproxen given by his PCP Dr. Naseem Orlando who presented to [facility] ED with weakness, poor appetite, N/V. He was found to be in severe acute renal failure BUN 187/Cr 13.6 with severe hyperkalemia, K+ 7.8. He was treated with hyperkalem ia cocktail including insulin, albuterol neb, calcium gluconate but not bicarbornate or kayexalate. The patient went to the telemetry floor where I saw him with his daughter Magdaleno and ex-. The phlembologist was at bedside. His repeat potassium was 7.3. I spoke with IR and Powder Press Operator; he will go for HD access placement for emergent hemodialysis. -Acute Renal failure, suspect ATN: d/w Nephrology, continue HD -Severe hyperkalemia improved with HD: monitor bmp closely -Hyponatremia, hypovolemia: treated with IVF -Severe Malnutrition, pt states he has been losing weight: consult [employer] -Suspected Acute Metabolic Encephalopathy, he just doesn't seem right, argu mentative, slightly confused. Consulted Neurology, ordered MRI brain but he was unable to complete screening, so ordered CT head. -Anemia, normocytic: transfused 2 units of PRBC, will transfuse 2 more units Renal Biopsy done FOBT positive; consult GI, monitor CBC History Interval history: Patient was seen and examined. Follow-up on current diagnosis of ARF. No overnight events reported to me. Patient denies any chest pain, shortness breath, nausea/vomiting or severe headaches. Imaging, nursing note, chart, labs and old chart reviewed. Discussed with patient. No family at bedside, I spoke with Daughter Magdaleno at nursing station earlier. Hospitalist Physical - Physical exam Narrative exam: Gen: WDWN, NAD, Awake, Alert, Orientated x 3 but needs additional hints and he is stuttering, with difficulty finding words but he does not have aphasia HEENT: NCAT, EOMI, PERRL, OP Clear Neck: supple, no adenopathy, no thyromegaly, no JVD CVS/Heart: RRR, normal S1S2, pulses present bilaterally Chest/Lungs: CTA B, Symmetrical chest expansion, good air entry bilaterally GI/Abdomen: soft, NTND, good bowel sounds, no guarding or rebound /Bladder: no suprapubic tenderness, no CVA or paraspinal tenderness Extermity/Skin: no c/c/e, no obvious rash MSK: FROM x 4 Neuro: CN 2-12 grossly intact, no new focal deficits Psych: calm - Constitutional Vitals: Temp Pulse Resp BP Pulse Ox 98.7 F 90 16 120/66 95 06/01/19 04:09 06/01/19 04:09 06/01/19 04:09 06/01/19 04:09 06/01/19 04:09 Results - Labs CBC & Chem 7: 06/01/19 06:53 06/01/19 06:53 Labs: Laboratory Last Values WBC 10.4 K/mm3 (4.5-11.0) 06/01/19 06:53 RBC 2.88 M/mm3 (3.65-5.03) L 06/01/19 06:53 Hgb 9.1 gm/dl (11.8-15.2) L 06/01/19 06:53 Hct 26.9 % (35.5-45.6) L 06/01/19 06:53 MCV 93 fl (84-94) 06/01/19 06:53 MCH 31 pg (28-32) 06/01/19 06:53 MCHC 34 % (32-34) 06/01/19 06:53 RDW 17.5 % (13.2-15.2) H 06/01/19 06:53 Plt Count 164 K/mm3 (140-440) 06/01/19 06:53 Lymph % (Auto) 5.7 % (13.4-35.0) L 06/01/19 06:53 Luna % (Auto) 5.4 % (0.0-7.3) 06/01/19 06:53 Eos % (Auto) 0.1 % (0.0-4.3) 06/01/19 06:53 Baso % (Auto) 0.2 % (0.0-1.8) 06/01/19 06:53 Lymph # 0.6 K/mm3 (1.2-5.4) L 06/01/19 06:53 Luna # 0.6 K/mm3 (0.0-0.8) 06/01/19 06:53 Eos # 0.0 K/mm3 (0.0-0.4) 06/01/19 06:53 Baso # 0.0 K/mm3 (0.0-0.1) 06/01/19 06:53 Add Manual Diff Complete 05/28/19 04:52 Total Counted 100 05/28/19 04:52 Seg Neutrophils % 88.6 % (40.0-70.0) H 06/01/19 06:53 Seg Neuts % (Manual) 92.0 % (40.0-70.0) H 05/28/19 04:52 Band Neutrophils % 0 % 05/28/19 04:52 Lymphocytes % (Manual) 5.0 % (13.4-35.0) L 05/28/19 04:52 Reactive Lymphs % (Man) 0 % 05/28/19 04:52 Monocytes % (Manual) 3.0 % (0.0-7.3) 05/28/19 04:52 Eosinophils % (Manual) 0 % (0.0-4.3) 05/28/19 04:52 Basophils % (Manual) 0 % (0.0-1.8) 05/28/19 04:52 Metamyelocytes % 0 % 05/28/19 04:52 Myelocytes % 0 % 05/28/19 04:52 Promyelocytes % 0 % 05/28/19 04:52 Blast Cells % 0 % 05/28/19 04:52 Nucleated RBC % Not Reportable 05/28/19 04:52 Seg Neutrophils # 9.2 K/mm3 (1.8-7.7) H 06/01/19 06:53 Seg Neutrophils # Man 9.5 K/mm3 (1.8-7.7) H 05/28/19 04:52 Band Neutrophils # 0.0 K/mm3 05/28/19 04:52 Lymphocytes # (Manual) 0.5 K/mm3 (1.2-5.4) L 05/28/19 04:52 Abs React Lymphs (Man) 0.0 K/mm3 05/28/19 04:52 Monocytes # (Manual) 0.3 K/mm3 (0.0-0.8) 05/28/19 04:52 Eosinophils # (Manual) 0.0 K/mm3 (0.0-0.4) 05/28/19 04:52 Basophils # (Manual) 0.0 K/mm3 (0.0-0.1) 05/28/19 04:52 Metamyelocytes # 0.0 K/mm3 05/28/19 04:52 Myelocytes # 0.0 K/mm3 05/28/19 04:52 Promyelocytes # 0.0 K/mm3 05/28/19 04:52 Blast Cells # 0.0 K/mm3 05/28/19 04:52 WBC Morphology Not Reportable 05/28/19 04:52 Hypersegmented Neuts Not Reportable 05/28/19 04:52 Hyposegmented Neuts Not Reportable 05/28/19 04:52 Hypogranular Neuts Not Reportable 05/28/19 04:52 Smudge Cells Not Reportable 05/28/19 04:52 Toxic Granulation Not Reportable 05/28/19 04:52 Toxic Vacuolation Not Reportable 05/28/19 04:52 Dohle Bodies Not Reportable 05/28/19 04:52 Pelger-Huet Anomaly Not Reportable 05/28/19 04:52 Brett Rods Not Reportable 05/28/19 04:52 Platelet Estimate Consistent w auto 05/28/19 04:52 Clumped Platelets Not Reportable 05/28/19 04:52 Plt Clumps, EDTA Not Reportable 05/28/19 04:52 Large Platelets Not Reportable 05/28/19 04:52 Giant Platelets Not Reportable 05/28/19 04:52 Platelet Satelliting Not Reportable 05/28/19 04:52 Plt Morphology Comment Not Reportable 05/28/19 04:52 RBC Morphology Not Reportable 05/28/19 04:52 Dimorphic RBCs Not Reportable 05/28/19 04:52 Polychromasia Not Reportable 05/28/19 04:52 Hypochromasia 1+ 05/28/19 04:52 Poikilocytosis Not Reportable 05/28/19 04:52 Anisocytosis 1+ 05/28/19 04:52 Microcytosis Not Reportable 05/28/19 04:52 Macrocytosis Not Reportable 05/28/19 04:52 Spherocytes Not Reportable 05/28/19 04:52 Pappenheimer Bodies Not Reportable 05/28/19 04:52 Sickle Cells Not Reportable 05/28/19 04:52 Target Cells Not Reportable 05/28/19 04:52 Tear Drop Cells Not Reportable 05/28/19 04:52 Ovalocytes Not Reportable 05/28/19 04:52 Helmet Cells Not Reportable 05/28/19 04:52 Cox-Lyons Bodies Not Reportable 05/28/19 04:52 [place] Rings Not Reportable 05/28/19 04:52 Kolby Cells Not Reportable 05/28/19 04:52 Bite Cells Not Reportable 05/28/19 04:52 Crenated Cell Not Reportable 05/28/19 04:52 Elliptocytes Not Reportable 05/28/19 04:52 Acanthocytes (Spur) Not Reportable 05/28/19 04:52 Rouleaux Not Reportable 05/28/19 04:52 Hemoglobin C Crystals Not Reportable 05/28/19 04:52 Schistocytes Not Reportable 05/28/19 04:52 Malaria parasites Not Reportable 05/28/19 04:52 Mynor Bodies Not Reportable 05/28/19 04:52 Hem Pathologist Commnt No 05/28/19 04:52 PT 15.5 Sec. (12.2-14.9) H 05/30/19 13:12 INR 1.26 (0.87-1.13) H 05/30/19 13:12 APTT 30.4 Sec. (24.2-36.6) 05/30/19 13:12 Sodium 137 mmol/L (137-145) 06/01/19 06:53 Potassium 4.4 mmol/L (3.6-5.0) 06/01/19 06:53 Chloride 98.0 mmol/L (98-107) 06/01/19 06:53 Carbon Dioxide 25 mmol/L (22-30) 06/01/19 06:53 Anion Gap 18 mmol/L 06/01/19 06:53 BUN 33 mg/dL (9-20) H 06/01/19 06:53 Creatinine 8.1 mg/dL (0.8-1.5) H D 06/01/19 06:53 Estimated GFR 8 ml/min 06/01/19 06:53 BUN/Creatinine Ratio 4 % 06/01/19 06:53 Glucose 97 mg/dL (75-100) 06/01/19 06:53 Calcium 7.3 mg/dL (8.4-10.2) L 06/01/19 06:53 Phosphorus 4.20 mg/dL (2.5-4.5) D 06/01/19 06:53 Magnesium 1.50 mg/dL (1.7-2.3) L 05/31/19 06:00 Ferritin > 2000.0 ng/mL (13.0-400.0) H 05/29/19 05:28 Total Bilirubin 0.30 mg/dL (0.1-1.2) 05/28/19 04:52 Direct Bilirubin < 0.2 mg/dL (0-0.2) 05/28/19 04:52 Indirect Bilirubin 0.1 mg/dL 05/28/19 04:52 AST 9 units/L (5-40) 05/28/19 04:52 ALT < 5 units/L (7-56) L 05/28/19 04:52 Alkaline Phosphatase 55 units/L (35-129) 05/28/19 04:52 Lactate Dehydrogenase 200 units/L (91-180) H 05/28/19 09:51 Total Creatine Kinase 80 units/L (55-170) 05/28/19 19:24 CK-MB (CK-2) 2.4 ng/mL (0.0-4.0) 05/28/19 19:24 CK-MB (CK-2) Rel Index 3.0 (0-4) 05/28/19 19:24 Troponin T 0.085 ng/mL (0.00-0.029) H 05/28/19 19:24 Total Protein 8.9 g/dL (6.3-8.2) H 05/28/19 04:52 Albumin 2.4 g/dL (3.9-5) L 05/28/19 04:52 Albumin/Globulin Ratio 0.4 % 05/28/19 04:52 Triglycerides 67 mg/dL (2-149) 05/28/19 04:52 Cholesterol 101 mg/dL (50-199) 05/28/19 04:52 LDL Cholesterol Direct 61 mg/dL (50-130) 05/28/19 04:52 HDL Cholesterol 25 mg/dL (40-59) L 05/28/19 04:52 Cholesterol/HDL Ratio 4.04 % 05/28/19 04:52 Lipase 161 units/L (13-60) H 05/28/19 05:03 Urine Color Yellow (Yellow) 05/29/19 05:50 Urine Turbidity Cloudy (Clear) 05/29/19 05:50 Urine pH 6.0 (5.0-7.0) 05/29/19 05:50 Ur Specific [place] 1.012 (1.003-1.030) 05/29/19 05:50 Urine Protein 100 mg/dl mg/dL (Negative) 05/29/19 05:50 Urine Glucose (UA) 50 mg/dL (Negative) 05/29/19 05:50 Urine Ketones Neg mg/dL (Negative) 05/29/19 05:50 Urine Blood Lg (Negative) 05/29/19 05:50 Urine Nitrite Neg (Negative) 05/29/19 05:50 Urine Bilirubin Neg (Negative) 05/29/19 05:50 Urine Urobilinogen < 2.0 mg/dL (<2.0) 05/29/19 05:50 Ur Leukocyte Esterase Tr (Negative) 05/29/19 05:50 Urine WBC (Auto) 10.0 /HPF (0.0-6.0) H 05/29/19 05:50 Urine RBC (Auto) 49.0 /HPF (0.0-6.0) 05/29/19 05:50 Urine Bacteria (Auto) 1+ /HPF (Negative) 05/29/19 05:50 Urine Mucus Few /HPF 05/29/19 05:50 Urine Eosinophils None seen (None Seen) 05/29/19 05:50 Urine Creatinine 94.0 mg/dL (0.1-20.0) H 05/29/19 05:50 Urine Creatinine 97.3 mg/dL (0.1-20.0) H 05/29/19 05:50 Protein/Creatinin Ratio 3.15 05/29/19 05:50 Urine Sodium 51 mmol/L 05/29/19 05:50 Urine Total Protein 296 mg/dL (5-11.8) H 05/29/19 05:50 NANDINI Screen Negative (Negative) 05/28/19 09:51 Complement C3 117 mg/dL (82-185) 05/28/19 09:51 Complement C4 24 mg/dL (15-53) 05/28/19 09:51 Hepatitis A IgM Ab Non-reactive (NonReactive) 05/28/19 12:35 Hep Bs Antigen Non-reactive (Negative) 05/28/19 12:35 Hep B Core IgM Ab Non-reactive (NonReactive) 05/28/19 12:35 Hepatitis C Antibody Non-reactive (NonReactive) 05/28/19 12:35 Schistocytes Smear None seen 05/28/19 Unknown Blood Type A POSITIVE 05/29/19 10:20 Antibody Screen Negative 05/29/19 10:20 Crossmatch See Detail 05/29/19 10:20 Active Medications - Current Medications Current Medications: Generic Name Dose Route Start Last Admin Trade Name Freq PRN Reason Stop Dose Admin Docusate Sodium 100 mg 05/29/19 23:45 06/01/19 10:00 Colace PO Not Given BID [facility] Epoetin Carlos 10,000 unit 05/30/19 13:13 Procrit IV BRADEN PRN hemodialysis Heparin Sodium (Porcine) 5,000 unit 05/28/19 10:00 06/01/19 10:00 Heparin SUB-Q Not Given Q12HR [facility] Ondansetron HCl 4 mg 05/28/19 06:12 Zofran IV Q8H PRN Nausea And Vomiting Polyethylene Glycol 17 gm 05/29/19 23:56 05/30/19 00:15 Miralax 3350 PO 17 gm QDAY PRN Administration Constipation Nutrition/Malnutrition Assess - Dietary Evaluation Nutrition/Malnutrition Findings: Nutrition Notes Start: 05/28/19 13:00 Freq: Status: Active Protocol: Document 05/30/19 14:02 AP (Rec: 05/30/19 14:50 AP [id number]) Co-Sign 05/30/19 14:02 LM Nutrition Notes Initial or Follow up Brief Note Current Diet NPO Labs/Tests Na 135 Bun 27 Ca 7 BG 101 Cl 96.5 Pertinent Medications Reviewed Height 5 ft 9 in Weight 75.1 kg Sarah Ann Body Weight (kg) 72.72 BMI 24.4 Intake Prior to Admission Poor Weight change and time frame Noted weight gain. Weight Status Appropriate Subjective/Other Information Pt had one round of HD yesterday. Daughter Magdaleno present in room and asking when pt could eat. Reached pt' s nurse who indicated charge nurse put pt on renal diet. However pt now NPO for kidney biopsy tomorrow. Burn Absent Trauma Absent GI Symptoms Nausea Current % PO Negligible #1 Nutrition Diagnosis Malnutrition Diagnosis Progress(for reassessment Continues documentation) Is patient on ventilator? No Is Patient Ambulatory and/or Out of Bed Yes REE-([facility]-ambulatory/OOB) [ [id number]] Additional Notes PRO: 80-90g/day (1.2 g/kg) Fluid: 1ml/kcal/per MD Nutrition Intervention Change Diet Order: Renal diet when medically feasible. Goal #1 Pt meet >80% of kcal/PRO needs . Anticipated Discharge Needs: Renal diet Follow-Up By: 06/04/19 Additional Comments F/U for PO intakes; need for ONS, wt changes.
[2019-06-01] MEDS ORDERED: NACL 0.9 (PRIMING MACHINE ONLY DIALYSIS) MC ONE (12:07)
[2019-06-01] MEDS: PROCRIT IV PRN (12:30)
[2019-06-02 06:30] LABS: Basophils % (Auto) 0.2 % (0.0-1.8); Eosinophils % (Auto) 0.1 % (0.0-4.3); Hematocrit 26.9 % (35.5-45.6); Hemoglobin 8.9 gm/dl (11.8-15.2); Lymphocytes # (Auto) 0.7 K/mm3 (1.2-5.4); Lymphocytes % (Auto) 7.2 % (13.4-35.0); Mean Corpuscular HGB Conc 33 % (32-34); Mean Corpuscular Volume 93 fl (84-94); Monocytes # (Auto) 0.6 K/mm3 (0.0-0.8); Monocytes % (Auto) 6.2 % (0.0-7.3); Platelet Count 145 K/mm3 (140-440); Red Blood Count 2.89 M/mm3 (3.65-5.03); Red Cell Distribution Width 17.2 % (13.2-15.2)
[2019-06-02 06:50] LABS: Calcium 7.1 mg/dL (8.4-10.2)
--- NOTE | 2019-06-02 09:33 | Progress Note ---
Assessment and Plan Severe renal failure, prerenal azotemia vs. 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 Medical renal disease. - Iron panel ordered, consider consulting GI to r/o GI bleed, epogen with HD - Renally dose meds - Strict I&O - Avoid nephrotoxic agents Williams Olea MD [phone] Subjective Date of service: 06/02/19 Principal diagnosis: severe renal failure Interval history: denies acute issues, urinating some Objective - Vital Signs Vital signs: Vital Signs - 12hr 06/01/19 06/02/19 23:34 04:01 Temperature 98.0 F 98.0 F Pulse Rate 89 86 Respiratory 20 20 Rate Blood Pressure 101/52 106/51 O2 Sat by Pulse 97 100 Oximetry - General Appearance General appearance: well-developed, well-nourished, appears stated age EENT: ATNC, PERRL, mucous membranes moist Neck: no JVD, no carotid bruit Respiratory: Present: Clear to Ascultation. Absent: Rales, Ronchi Cardiology: regular, S1S2 Gastrointestinal: normoactive bowel sounds, no tenderness, no distended Integumentary: no rash, warm and dry Neurologic: no focal deficit, no asterixis, alert and oriented x3 Musculoskeletal: other (no edema in BLE) Psychiatric: mood/affect appropriate, cooperative - Lab 06/02/19 05:48 06/02/19 05:48 Most recent lab results Calcium 7.1 mg/dL (8.4-10.2) L 06/02/19 05:48 Phosphorus 3.20 mg/dL (2.5-4.5) D 06/02/19 05:48 Magnesium 1.50 mg/dL (1.7-2.3) L 05/31/19 06:00 Urine Creatinine 94.0 mg/dL (0.1-20.0) H 05/29/19 05:50 Urine Creatinine 97.3 mg/dL (0.1-20.0) H 05/29/19 05:50 Urine Sodium 51 mmol/L 05/29/19 05:50 Urine Total Protein 296 mg/dL (5-11.8) H 05/29/19 05:50 Medications & Allergies - Medications Allergies/Adverse Reactions: Allergies No Known Allergies Allergy (Unverified 08/04/14 14:55) Home Medications: Home Medications Medication Instructions Recorded Confirmed Last Taken Type Meclizine [Antivert] 25 mg PO ONCE 06/02/19 06/02/19 Unknown History Naproxen Sodium 500 mg PO ONCE 06/02/19 06/02/19 Unknown History Pantoprazole [Protonix TAB] 40 mg PO ONCE 06/02/19 06/02/19 Unknown History Active Medications: Generic Name Dose Route Start Last Admin Trade Name Freq PRN Reason Stop Dose Admin Docusate Sodium 100 mg 05/29/19 23:45 06/01/19 22:31 Colace PO 100 mg BID NIKOS Administration Epoetin Carlos 10,000 unit 05/30/19 13:13 06/01/19 12:30 Procrit IV 10,000 unit BRADEN PRN Administration hemodialysis Heparin Sodium (Porcine) 5,000 unit 05/28/19 10:00 06/01/19 22:31 Heparin SUB-Q 5,000 unit Q12HR NIKOS Administration Ondansetron HCl 4 mg 05/28/19 06:12 Zofran IV Q8H PRN Nausea And Vomiting Polyethylene Glycol 17 gm 05/29/19 23:56 05/30/19 00:15 Miralax 3350 PO 17 gm QDAY PRN Administration Constipation
[2019-06-02] MEDS: COLACE PO SCH ×2 (10:18→22:38)
[2019-06-02] MEDS: HEPARIN SUB-Q SCH ×2 (10:19→22:38)
--- NOTE | 2019-06-02 10:57 | Progress Note ---
Assessment and Plan Assessment and plan: Patient is a 79 yo man with a history of tobacco dependency, GERD, OA on naproxen given by his PCP Dr. Naseem Orlando who presented to [facility] ED with weakness, poor appetite, N/V. He was found to be in severe acute renal failure BUN 187/Cr 13.6 with severe hyperkalemia, K+ 7.8. He was treated with hyperkalem ia cocktail including insulin, albuterol neb, calcium gluconate but not bicarbornate or kayexalate. The patient went to the telemetry floor where I saw him with his daughter Magdaleno and ex-. The phlembologist was at bedside. His repeat potassium was 7.3. I spoke with IR and Cooler Supervisor; he will go for HD access placement for emergent hemodialysis. -Acute Renal failure, suspect ATN: d/w Nephrology, continue HD -Severe hyperkalemia improved with HD: monitor bmp closely -Hyponatremia, hypovolemia: treated with IVF -Severe Malnutrition, pt states he has been losing weight: consult Programs Assistant -Suspected Acute Metabolic Encephalopathy, he just doesn't seem right, argu mentative, slightly confused. Consulted Neurology, ordered MRI brain but he was unable to complete screening, so ordered CT head. -Anemia, normocytic: transfused 2 units of PRBC, will transfuse 2 more units Renal Biopsy done FOBT positive; consult GI, monitor CBC History Interval history: Patient was seen and examined. Follow-up on current diagnosis of ARF. No overnight events reported to me. Patient denies any chest pain, shortness breath, nausea/vomiting or severe headaches. Imaging, nursing note, chart, labs and old chart reviewed. Discussed with patient. Daughter from [place], [place] at bedside. Hospitalist Physical - Physical exam Narrative exam: Gen: WDWN, NAD, Awake, Alert, Orientated x 3 but needs additional hints and he is stuttering, with difficulty finding words but he does not have aphasia HEENT: NCAT, EOMI, PERRL, OP Clear Neck: supple, no adenopathy, no thyromegaly, no JVD CVS/Heart: RRR, normal S1S2, pulses present bilaterally Chest/Lungs: CTA B, Symmetrical chest expansion, good air entry bilaterally GI/Abdomen: soft, NTND, good bowel sounds, no guarding or rebound /Bladder: no suprapubic tenderness, no CVA or paraspinal tenderness Extermity/Skin: no c/c/e, no obvious rash MSK: FROM x 4 Neuro: CN 2-12 grossly intact, no new focal deficits Psych: calm - Constitutional Vitals: Temp Pulse Resp BP Pulse Ox 98.0 F 86 20 106/51 100 06/02/19 04:01 06/02/19 04:01 06/02/19 04:01 06/02/19 04:01 06/02/19 04:01 Results - Labs CBC & Chem 7: 06/02/19 05:48 06/02/19 05:48 Labs: Laboratory Last Values WBC 9.2 K/mm3 (4.5-11.0) 06/02/19 05:48 RBC 2.89 M/mm3 (3.65-5.03) L 06/02/19 05:48 Hgb 8.9 gm/dl (11.8-15.2) L 06/02/19 05:48 Hct 26.9 % (35.5-45.6) L 06/02/19 05:48 MCV 93 fl (84-94) 06/02/19 05:48 MCH 31 pg (28-32) 06/02/19 05:48 MCHC 33 % (32-34) 06/02/19 05:48 RDW 17.2 % (13.2-15.2) H 06/02/19 05:48 Plt Count 145 K/mm3 (140-440) 06/02/19 05:48 Lymph % (Auto) 7.2 % (13.4-35.0) L 06/02/19 05:48 [place] % (Auto) 6.2 % (0.0-7.3) 06/02/19 05:48 Eos % (Auto) 0.1 % (0.0-4.3) 06/02/19 05:48 Baso % (Auto) 0.2 % (0.0-1.8) 06/02/19 05:48 Lymph # 0.7 K/mm3 (1.2-5.4) L 06/02/19 05:48 [place] # 0.6 K/mm3 (0.0-0.8) 06/02/19 05:48 Eos # 0.0 K/mm3 (0.0-0.4) 06/02/19 05:48 Baso # 0.0 K/mm3 (0.0-0.1) 06/02/19 05:48 Add Manual Diff Complete 05/28/19 04:52 Total Counted 100 05/28/19 04:52 Seg Neutrophils % 86.3 % (40.0-70.0) H 06/02/19 05:48 Seg Neuts % (Manual) 92.0 % (40.0-70.0) H 05/28/19 04:52 Band Neutrophils % 0 % 05/28/19 04:52 Lymphocytes % (Manual) 5.0 % (13.4-35.0) L 05/28/19 04:52 Reactive Lymphs % (Man) 0 % 05/28/19 04:52 Monocytes % (Manual) 3.0 % (0.0-7.3) 05/28/19 04:52 Eosinophils % (Manual) 0 % (0.0-4.3) 05/28/19 04:52 Basophils % (Manual) 0 % (0.0-1.8) 05/28/19 04:52 Metamyelocytes % 0 % 05/28/19 04:52 Myelocytes % 0 % 05/28/19 04:52 Promyelocytes % 0 % 05/28/19 04:52 Blast Cells % 0 % 05/28/19 04:52 Nucleated RBC % Not Reportable 05/28/19 04:52 Seg Neutrophils # 7.9 K/mm3 (1.8-7.7) H 06/02/19 05:48 Seg Neutrophils # Man 9.5 K/mm3 (1.8-7.7) H 05/28/19 04:52 Band Neutrophils # 0.0 K/mm3 05/28/19 04:52 Lymphocytes # (Manual) 0.5 K/mm3 (1.2-5.4) L 05/28/19 04:52 Abs React Lymphs (Man) 0.0 K/mm3 05/28/19 04:52 Monocytes # (Manual) 0.3 K/mm3 (0.0-0.8) 05/28/19 04:52 Eosinophils # (Manual) 0.0 K/mm3 (0.0-0.4) 05/28/19 04:52 Basophils # (Manual) 0.0 K/mm3 (0.0-0.1) 05/28/19 04:52 Metamyelocytes # 0.0 K/mm3 05/28/19 04:52 Myelocytes # 0.0 K/mm3 05/28/19 04:52 Promyelocytes # 0.0 K/mm3 05/28/19 04:52 Blast Cells # 0.0 K/mm3 05/28/19 04:52 WBC Morphology Not Reportable 05/28/19 04:52 Hypersegmented Neuts Not Reportable 05/28/19 04:52 Hyposegmented Neuts Not Reportable 05/28/19 04:52 Hypogranular Neuts Not Reportable 05/28/19 04:52 Smudge Cells Not Reportable 05/28/19 04:52 Toxic Granulation Not Reportable 05/28/19 04:52 Toxic Vacuolation Not Reportable 05/28/19 04:52 Dohle Bodies Not Reportable 05/28/19 04:52 Pelger-Huet Anomaly Not Reportable 05/28/19 04:52 Brett Rods Not Reportable 05/28/19 04:52 Platelet Estimate Consistent w auto 05/28/19 04:52 Clumped Platelets Not Reportable 05/28/19 04:52 Plt Clumps, EDTA Not Reportable 05/28/19 04:52 Large Platelets Not Reportable 05/28/19 04:52 Giant Platelets Not Reportable 05/28/19 04:52 Platelet Satelliting Not Reportable 05/28/19 04:52 Plt Morphology Comment Not Reportable 05/28/19 04:52 RBC Morphology Not Reportable 05/28/19 04:52 Dimorphic RBCs Not Reportable 05/28/19 04:52 Polychromasia Not Reportable 05/28/19 04:52 Hypochromasia 1+ 05/28/19 04:52 Poikilocytosis Not Reportable 05/28/19 04:52 Anisocytosis 1+ 05/28/19 04:52 Microcytosis Not Reportable 05/28/19 04:52 Macrocytosis Not Reportable 05/28/19 04:52 Spherocytes Not Reportable 05/28/19 04:52 Pappenheimer Bodies Not Reportable 05/28/19 04:52 Sickle Cells Not Reportable 05/28/19 04:52 Target Cells Not Reportable 05/28/19 04:52 Tear Drop Cells Not Reportable 05/28/19 04:52 Ovalocytes Not Reportable 05/28/19 04:52 Helmet Cells Not Reportable 05/28/19 04:52 Cox-Larchwood Bodies Not Reportable 05/28/19 04:52 [place] Rings Not Reportable 05/28/19 04:52 Kolby Cells Not Reportable 05/28/19 04:52 Bite Cells Not Reportable 05/28/19 04:52 Crenated Cell Not Reportable 05/28/19 04:52 Elliptocytes Not Reportable 05/28/19 04:52 Acanthocytes (Spur) Not Reportable 05/28/19 04:52 Rouleaux Not Reportable 05/28/19 04:52 Hemoglobin C Crystals Not Reportable 05/28/19 04:52 Schistocytes Not Reportable 05/28/19 04:52 Malaria parasites Not Reportable 05/28/19 04:52 Mynor Bodies Not Reportable 05/28/19 04:52 Hem Pathologist Commnt No 05/28/19 04:52 PT 15.5 Sec. (12.2-14.9) H 05/30/19 13:12 INR 1.26 (0.87-1.13) H 05/30/19 13:12 APTT 30.4 Sec. (24.2-36.6) 05/30/19 13:12 Sodium 140 mmol/L (137-145) 06/02/19 05:48 Potassium 4.0 mmol/L (3.6-5.0) 06/02/19 05:48 Chloride 99.1 mmol/L (98-107) 06/02/19 05:48 Carbon Dioxide 26 mmol/L (22-30) 06/02/19 05:48 Anion Gap 19 mmol/L 06/02/19 05:48 BUN 22 mg/dL (9-20) H 06/02/19 05:48 Creatinine 6.0 mg/dL (0.8-1.5) H 06/02/19 05:48 Estimated GFR 11 ml/min 06/02/19 05:48 BUN/Creatinine Ratio 4 % 06/02/19 05:48 Glucose 100 mg/dL (75-100) 06/02/19 05:48 Calcium 7.1 mg/dL (8.4-10.2) L 06/02/19 05:48 Phosphorus 3.20 mg/dL (2.5-4.5) D 06/02/19 05:48 Magnesium 1.50 mg/dL (1.7-2.3) L 05/31/19 06:00 Ferritin > 2000.0 ng/mL (13.0-400.0) H 05/29/19 05:28 Total Bilirubin 0.30 mg/dL (0.1-1.2) 05/28/19 04:52 Direct Bilirubin < 0.2 mg/dL (0-0.2) 05/28/19 04:52 Indirect Bilirubin 0.1 mg/dL 05/28/19 04:52 AST 9 units/L (5-40) 05/28/19 04:52 ALT < 5 units/L (7-56) L 05/28/19 04:52 Alkaline Phosphatase 55 units/L (35-129) 05/28/19 04:52 Lactate Dehydrogenase 200 units/L (91-180) H 05/28/19 09:51 Total Creatine Kinase 80 units/L (55-170) 05/28/19 19:24 CK-MB (CK-2) 2.4 ng/mL (0.0-4.0) 05/28/19 19:24 CK-MB (CK-2) Rel Index 3.0 (0-4) 05/28/19 19:24 Troponin T 0.085 ng/mL (0.00-0.029) H 05/28/19 19:24 Total Protein 8.9 g/dL (6.3-8.2) H 05/28/19 04:52 Albumin 2.4 g/dL (3.9-5) L 05/28/19 04:52 Albumin/Globulin Ratio 0.4 % 05/28/19 04:52 Triglycerides 67 mg/dL (2-149) 05/28/19 04:52 Cholesterol 101 mg/dL (50-199) 05/28/19 04:52 LDL Cholesterol Direct 61 mg/dL (50-130) 05/28/19 04:52 HDL Cholesterol 25 mg/dL (40-59) L 05/28/19 04:52 Cholesterol/HDL Ratio 4.04 % 05/28/19 04:52 Lipase 161 units/L (13-60) H 05/28/19 05:03 Urine Color Yellow (Yellow) 05/29/19 05:50 Urine Turbidity Cloudy (Clear) 05/29/19 05:50 Urine pH 6.0 (5.0-7.0) 05/29/19 05:50 Ur Specific [place] 1.012 (1.003-1.030) 05/29/19 05:50 Urine Protein 100 mg/dl mg/dL (Negative) 05/29/19 05:50 Urine Glucose (UA) 50 mg/dL (Negative) 05/29/19 05:50 Urine Ketones Neg mg/dL (Negative) 05/29/19 05:50 Urine Blood Lg (Negative) 05/29/19 05:50 Urine Nitrite Neg (Negative) 05/29/19 05:50 Urine Bilirubin Neg (Negative) 05/29/19 05:50 Urine Urobilinogen < 2.0 mg/dL (<2.0) 05/29/19 05:50 Ur Leukocyte Esterase Tr (Negative) 05/29/19 05:50 Urine WBC (Auto) 10.0 /HPF (0.0-6.0) H 05/29/19 05:50 Urine RBC (Auto) 49.0 /HPF (0.0-6.0) 05/29/19 05:50 Urine Bacteria (Auto) 1+ /HPF (Negative) 05/29/19 05:50 Urine Mucus Few /HPF 05/29/19 05:50 Urine Eosinophils None seen (None Seen) 05/29/19 05:50 Urine Creatinine 94.0 mg/dL (0.1-20.0) H 05/29/19 05:50 Urine Creatinine 97.3 mg/dL (0.1-20.0) H 05/29/19 05:50 Protein/Creatinin Ratio 3.15 05/29/19 05:50 Urine Sodium 51 mmol/L 05/29/19 05:50 Urine Total Protein 296 mg/dL (5-11.8) H 05/29/19 05:50 NANDINI Screen Negative (Negative) 05/28/19 09:51 Complement C3 117 mg/dL (82-185) 05/28/19 09:51 Complement C4 24 mg/dL (15-53) 05/28/19 09:51 Hepatitis A IgM Ab Non-reactive (NonReactive) 05/28/19 12:35 Hep Bs Antigen Non-reactive (Negative) 05/28/19 12:35 Hep B Core IgM Ab Non-reactive (NonReactive) 05/28/19 12:35 Hepatitis C Antibody Non-reactive (NonReactive) 05/28/19 12:35 Schistocytes Smear None seen 05/28/19 Unknown Blood Type A POSITIVE 05/29/19 10:20 Antibody Screen Negative 05/29/19 10:20 Crossmatch See Detail 05/29/19 10:20 Active Medications - Current Medications Current Medications: Generic Name Dose Route Start Last Admin Trade Name Freq PRN Reason Stop Dose Admin Docusate Sodium 100 mg 05/29/19 23:45 06/02/19 10:18 Colace PO 100 mg BID NIKOS Administration Epoetin Carlos 10,000 unit 05/30/19 13:13 06/01/19 12:30 Procrit IV 10,000 unit BRADEN PRN Administration hemodialysis Heparin Sodium (Porcine) 5,000 unit 05/28/19 10:00 06/02/19 10:19 Heparin SUB-Q 5,000 unit Q12HR NIKOS Administration Ondansetron HCl 4 mg 05/28/19 06:12 Zofran IV Q8H PRN Nausea And Vomiting Polyethylene Glycol 17 gm 05/29/19 23:56 05/30/19 00:15 Miralax 3350 PO 17 gm QDAY PRN Administration Constipation Nutrition/Malnutrition Assess - Dietary Evaluation Nutrition/Malnutrition Findings: Nutrition Notes Start: 05/28/19 13:00 Freq: Status: Active Protocol: Document 05/30/19 14:02 AP (Rec: 05/30/19 14:50 AP [id number]) Co-Sign 05/30/19 14:02 LM Nutrition Notes Initial or Follow up Brief Note Current Diet NPO Labs/Tests Na 135 Bun 27 Ca 7 BG 101 Cl 96.5 Pertinent Medications Reviewed Height 5 ft 9 in Weight 75.1 kg [place] Body Weight (kg) 72.72 BMI 24.4 Intake Prior to Admission Poor Weight change and time frame Noted weight gain. Weight Status Appropriate Subjective/Other Information Pt had one round of HD yesterday. Daughter Magdaleno present in room and asking when pt could eat. Reached pt' s nurse who indicated charge nurse put pt on renal diet. However pt now NPO for kidney biopsy tomorrow. Burn Absent Trauma Absent GI Symptoms Nausea Current % PO Negligible #1 Nutrition Diagnosis Malnutrition Diagnosis Progress(for reassessment Continues documentation) Is patient on ventilator? No Is Patient Ambulatory and/or Out of Bed Yes REE-([facility]-ambulatory/OOB) [ [id number]] Additional Notes PRO: 80-90g/day (1.2 g/kg) Fluid: 1ml/kcal/per MD Nutrition Intervention Change Diet Order: Renal diet when medically feasible. Goal #1 Pt meet >80% of kcal/PRO needs . Anticipated Discharge Needs: Renal diet Follow-Up By: 06/04/19 Additional Comments F/U for PO intakes; need for ONS, wt changes.
[2019-06-02 19:45] LABS: Myeloperoxidase Antibody <1.0 AI (<1.0)
[2019-06-03 05:20] LABS: Abnormal Protein Band 1 1.3 g/dL; Albumin 1.7 g/dL (3.8-4.8)
[2019-06-03 07:54] LABS: Basophils % (Auto) 0.3 % (0.0-1.8); Eosinophils % (Auto) 0.2 % (0.0-4.3); Hematocrit 29.2 % (35.5-45.6); Hemoglobin 9.7 gm/dl (11.8-15.2); Lymphocytes # (Auto) 0.8 K/mm3 (1.2-5.4); Lymphocytes % (Auto) 7.5 % (13.4-35.0); Mean Corpuscular HGB Conc 33 % (32-34); Mean Corpuscular Volume 94 fl (84-94); Monocytes # (Auto) 0.5 K/mm3 (0.0-0.8); Platelet Count 145 K/mm3 (140-440); Red Blood Count 3.11 M/mm3 (3.65-5.03); Red Cell Distribution Width 17.3 % (13.2-15.2)
[2019-06-03 08:11] LABS: Calcium 7.6 mg/dL (8.4-10.2)
--- NOTE | 2019-06-03 08:54 | Progress Note ---
Assessment and Plan Assessment and plan: Patient is a 79 yo man with a history of tobacco dependency, GERD, OA on naproxen given by his PCP Dr. Naseem Orlando who presented to [facility] ED with weakness, poor appetite, N/V. He was found to be in severe acute renal failure BUN 187/Cr 13.6 with severe hyperkalemia, K+ 7.8. He was treated with hyperkalem ia cocktail including insulin, albuterol neb, calcium gluconate but not bicarbornate or kayexalate. The patient went to the telemetry floor where I saw him with his daughter Magdaleno and ex-. The phlembologist was at bedside. His repeat potassium was 7.3. I spoke with IR and Direct Marketing Intern; he will go for HD access placement for emergent hemodialysis. -Acute Renal failure, suspect ATN: d/w Nephrology, continue HD -Severe hyperkalemia improved with HD: monitor bmp closely -Hyponatremia, hypovolemia: treated with IVF -Severe Malnutrition, pt states he has been losing weight: consult System Administrator -Suspected Acute Metabolic Encephalopathy, he just doesn't seem right, argu mentative, slightly confused. Consulted Neurology, ordered MRI brain but he was unable to complete screening, so ordered CT head. -Anemia, normocytic: transfused 2 units of PRBC, will transfuse 2 more units -DVT ppx: SCD only due to anemia and +FOBT Renal Biopsy done 05/31/19, await results FOBT positive; consulted GI, monitor CBC Disposition; continue inpatient care, await renal bx results then may need Outpatient HD setup, Vas-cath to Perm-Cath today, GI to see for anemia and +FOBT History Interval history: Patient was seen and examined. Follow-up on current diagnosis of ARF. No overnight events reported to me. Patient denies any chest pain, shortness breath, nausea/vomiting or severe headaches. Imaging, nursing note, chart, labs and old chart reviewed. Discussed with patient. Daughter from [place], [place] at bedside. Hospitalist Physical - Physical exam Narrative exam: Gen: WDWN, NAD, Awake, Alert, Orientated x 3 but needs additional hints and he is stuttering, with difficulty finding words but he does not have aphasia HEENT: NCAT, EOMI, PERRL, OP Clear Neck: supple, no adenopathy, no thyromegaly, no JVD CVS/Heart: RRR, normal S1S2, pulses present bilaterally Chest/Lungs: CTA B, Symmetrical chest expansion, good air entry bilaterally GI/Abdomen: soft, NTND, good bowel sounds, no guarding or rebound /Bladder: no suprapubic tenderness, no CVA or paraspinal tenderness Extermity/Skin: no c/c/e, no obvious rash MSK: FROM x 4 Neuro: CN 2-12 grossly intact, no new focal deficits Psych: calm - Constitutional Vitals: Temp Pulse Resp BP Pulse Ox 98.2 F 68 18 128/64 96 06/03/19 04:29 06/03/19 04:29 06/03/19 04:29 06/03/19 04:29 06/03/19 04:29 Results - Labs CBC & Chem 7: 06/03/19 07:26 06/03/19 07:26 Labs: Laboratory Last Values WBC 10.2 K/mm3 (4.5-11.0) 06/03/19 07:26 RBC 3.11 M/mm3 (3.65-5.03) L 06/03/19 07:26 Hgb 9.7 gm/dl (11.8-15.2) L 06/03/19 07:26 Hct 29.2 % (35.5-45.6) L 06/03/19 07:26 MCV 94 fl (84-94) 06/03/19 07:26 MCH 31 pg (28-32) 06/03/19 07:26 MCHC 33 % (32-34) 06/03/19 07:26 RDW 17.3 % (13.2-15.2) H 06/03/19 07:26 Plt Count 145 K/mm3 (140-440) 06/03/19 07:26 Lymph % (Auto) 7.5 % (13.4-35.0) L 06/03/19 07:26 [place] % (Auto) 5.0 % (0.0-7.3) 06/03/19 07:26 Eos % (Auto) 0.2 % (0.0-4.3) 06/03/19 07:26 Baso % (Auto) 0.3 % (0.0-1.8) 06/03/19 07:26 Lymph # 0.8 K/mm3 (1.2-5.4) L 06/03/19 07:26 [place] # 0.5 K/mm3 (0.0-0.8) 06/03/19 07:26 Eos # 0.0 K/mm3 (0.0-0.4) 06/03/19 07:26 Baso # 0.0 K/mm3 (0.0-0.1) 06/03/19 07:26 Add Manual Diff Complete 05/28/19 04:52 Total Counted 100 05/28/19 04:52 Seg Neutrophils % 87.0 % (40.0-70.0) H 06/03/19 07:26 Seg Neuts % (Manual) 92.0 % (40.0-70.0) H 05/28/19 04:52 Band Neutrophils % 0 % 05/28/19 04:52 Lymphocytes % (Manual) 5.0 % (13.4-35.0) L 05/28/19 04:52 Reactive Lymphs % (Man) 0 % 05/28/19 04:52 Monocytes % (Manual) 3.0 % (0.0-7.3) 05/28/19 04:52 Eosinophils % (Manual) 0 % (0.0-4.3) 05/28/19 04:52 Basophils % (Manual) 0 % (0.0-1.8) 05/28/19 04:52 Metamyelocytes % 0 % 05/28/19 04:52 Myelocytes % 0 % 05/28/19 04:52 Promyelocytes % 0 % 05/28/19 04:52 Blast Cells % 0 % 05/28/19 04:52 Nucleated RBC % Not Reportable 05/28/19 04:52 Seg Neutrophils # 8.9 K/mm3 (1.8-7.7) H 06/03/19 07:26 Seg Neutrophils # Man 9.5 K/mm3 (1.8-7.7) H 05/28/19 04:52 Band Neutrophils # 0.0 K/mm3 05/28/19 04:52 Lymphocytes # (Manual) 0.5 K/mm3 (1.2-5.4) L 05/28/19 04:52 Abs React Lymphs (Man) 0.0 K/mm3 05/28/19 04:52 Monocytes # (Manual) 0.3 K/mm3 (0.0-0.8) 05/28/19 04:52 Eosinophils # (Manual) 0.0 K/mm3 (0.0-0.4) 05/28/19 04:52 Basophils # (Manual) 0.0 K/mm3 (0.0-0.1) 05/28/19 04:52 Metamyelocytes # 0.0 K/mm3 05/28/19 04:52 Myelocytes # 0.0 K/mm3 05/28/19 04:52 Promyelocytes # 0.0 K/mm3 05/28/19 04:52 Blast Cells # 0.0 K/mm3 05/28/19 04:52 WBC Morphology Not Reportable 05/28/19 04:52 Hypersegmented Neuts Not Reportable 05/28/19 04:52 Hyposegmented Neuts Not Reportable 05/28/19 04:52 Hypogranular Neuts Not Reportable 05/28/19 04:52 Smudge Cells Not Reportable 05/28/19 04:52 Toxic Granulation Not Reportable 05/28/19 04:52 Toxic Vacuolation Not Reportable 05/28/19 04:52 Dohle Bodies Not Reportable 05/28/19 04:52 Pelger-Huet Anomaly Not Reportable 05/28/19 04:52 Brett Rods Not Reportable 05/28/19 04:52 Platelet Estimate Consistent w auto 05/28/19 04:52 Clumped Platelets Not Reportable 05/28/19 04:52 Plt Clumps, EDTA Not Reportable 05/28/19 04:52 Large Platelets Not Reportable 05/28/19 04:52 Giant Platelets Not Reportable 05/28/19 04:52 Platelet Satelliting Not Reportable 05/28/19 04:52 Plt Morphology Comment Not Reportable 05/28/19 04:52 RBC Morphology Not Reportable 05/28/19 04:52 Dimorphic RBCs Not Reportable 05/28/19 04:52 Polychromasia Not Reportable 05/28/19 04:52 Hypochromasia 1+ 05/28/19 04:52 Poikilocytosis Not Reportable 05/28/19 04:52 Anisocytosis 1+ 05/28/19 04:52 Microcytosis Not Reportable 05/28/19 04:52 Macrocytosis Not Reportable 05/28/19 04:52 Spherocytes Not Reportable 05/28/19 04:52 Pappenheimer Bodies Not Reportable 05/28/19 04:52 Sickle Cells Not Reportable 05/28/19 04:52 Target Cells Not Reportable 05/28/19 04:52 Tear Drop Cells Not Reportable 05/28/19 04:52 Ovalocytes Not Reportable 05/28/19 04:52 Helmet Cells Not Reportable 05/28/19 04:52 [place] Bodies Not Reportable 05/28/19 04:52 [place] Rings Not Reportable 05/28/19 04:52 [place] Cells Not Reportable 05/28/19 04:52 Bite Cells Not Reportable 05/28/19 04:52 Crenated Cell Not Reportable 05/28/19 04:52 Elliptocytes Not Reportable 05/28/19 04:52 Acanthocytes (Spur) Not Reportable 05/28/19 04:52 Rouleaux Not Reportable 05/28/19 04:52 Hemoglobin C Crystals Not Reportable 05/28/19 04:52 Schistocytes Not Reportable 05/28/19 04:52 Malaria parasites Not Reportable 05/28/19 04:52 [place] Bodies Not Reportable 05/28/19 04:52 Hem Pathologist Commnt No 05/28/19 04:52 PT 15.5 Sec. (12.2-14.9) H 05/30/19 13:12 INR 1.26 (0.87-1.13) H 05/30/19 13:12 APTT 30.4 Sec. (24.2-36.6) 05/30/19 13:12 Sodium 139 mmol/L (137-145) 06/03/19 07:26 Potassium 4.6 mmol/L (3.6-5.0) 06/03/19 07:26 Chloride 96.3 mmol/L (98-107) L 06/03/19 07:26 Carbon Dioxide 23 mmol/L (22-30) 06/03/19 07:26 Anion Gap 24 mmol/L 06/03/19 07:26 BUN 42 mg/dL (9-20) H 06/03/19 07:26 Creatinine 9.0 mg/dL (0.8-1.5) H 06/03/19 07:26 Estimated GFR 7 ml/min 06/03/19 07:26 BUN/Creatinine Ratio 5 % 06/03/19 07:26 Glucose 79 mg/dL (75-100) 06/03/19 07:26 Calcium 7.6 mg/dL (8.4-10.2) L 06/03/19 07:26 Phosphorus 4.50 mg/dL (2.5-4.5) D 06/03/19 07:26 Magnesium 1.70 mg/dL (1.7-2.3) 06/02/19 06:00 Ferritin > 2000.0 ng/mL (13.0-400.0) H 05/29/19 05:28 Total Bilirubin 0.30 mg/dL (0.1-1.2) 05/28/19 04:52 Direct Bilirubin < 0.2 mg/dL (0-0.2) 05/28/19 04:52 Indirect Bilirubin 0.1 mg/dL 05/28/19 04:52 AST 9 units/L (5-40) 05/28/19 04:52 ALT < 5 units/L (7-56) L 05/28/19 04:52 Alkaline Phosphatase 55 units/L (35-129) 05/28/19 04:52 Lactate Dehydrogenase 200 units/L (91-180) H 05/28/19 09:51 Total Creatine Kinase 80 units/L (55-170) 05/28/19 19:24 CK-MB (CK-2) 2.4 ng/mL (0.0-4.0) 05/28/19 19:24 CK-MB (CK-2) Rel Index 3.0 (0-4) 05/28/19 19:24 Troponin T 0.085 ng/mL (0.00-0.029) H 05/28/19 19:24 Serum Total Protein 6.5 g/dL (6.1-8.1) 05/29/19 10:20 Total Protein 8.9 g/dL (6.3-8.2) H 05/28/19 04:52 Albumin 1.7 g/dL (3.8-4.8) L 05/29/19 10:20 Albumin/Globulin Ratio 0.4 % 05/28/19 04:52 Vwokh-9-Egyvosvkd 0.6 g/dL (0.2-0.3) H 05/29/19 10:20 Wlgux-6-Hqdwkzmji 1.1 g/dL (0.5-0.9) H 05/29/19 10:20 Beta Globulins 0.7 g/dL (0.2-0.5) H 05/29/19 10:20 Gamma Globulins 2.0 g/dL (0.8-1.7) H 05/29/19 10:20 Abnorm Protein Band 1 1.3 g/dL H 05/29/19 10:20 PEP Interpretation see below H 05/29/19 10:20 Triglycerides 67 mg/dL (2-149) 05/28/19 04:52 Cholesterol 101 mg/dL (50-199) 05/28/19 04:52 LDL Cholesterol Direct 61 mg/dL (50-130) 05/28/19 04:52 HDL Cholesterol 25 mg/dL (40-59) L 05/28/19 04:52 Cholesterol/HDL Ratio 4.04 % 05/28/19 04:52 Lipase 161 units/L (13-60) H 05/28/19 05:03 Urine Color Yellow (Yellow) 05/29/19 05:50 Urine Turbidity Cloudy (Clear) 05/29/19 05:50 Urine pH 6.0 (5.0-7.0) 05/29/19 05:50 Ur Specific [place] 1.012 (1.003-1.030) 05/29/19 05:50 Urine Protein 100 mg/dl mg/dL (Negative) 05/29/19 05:50 Urine Glucose (UA) 50 mg/dL (Negative) 05/29/19 05:50 Urine Ketones Neg mg/dL (Negative) 05/29/19 05:50 Urine Blood Lg (Negative) 05/29/19 05:50 Urine Nitrite Neg (Negative) 05/29/19 05:50 Urine Bilirubin Neg (Negative) 05/29/19 05:50 Urine Urobilinogen < 2.0 mg/dL (<2.0) 05/29/19 05:50 Ur Leukocyte Esterase Tr (Negative) 05/29/19 05:50 Urine WBC (Auto) 10.0 /HPF (0.0-6.0) H 05/29/19 05:50 Urine RBC (Auto) 49.0 /HPF (0.0-6.0) 05/29/19 05:50 Urine Bacteria (Auto) 1+ /HPF (Negative) 05/29/19 05:50 Urine Mucus Few /HPF 05/29/19 05:50 Urine Eosinophils None seen (None Seen) 05/29/19 05:50 Urine Creatinine 94.0 mg/dL (0.1-20.0) H 05/29/19 05:50 Urine Creatinine 97.3 mg/dL (0.1-20.0) H 05/29/19 05:50 Protein/Creatinin Ratio 3.15 05/29/19 05:50 Urine Sodium 51 mmol/L 05/29/19 05:50 Urine Total Protein 296 mg/dL (5-11.8) H 05/29/19 05:50 NANDINI Screen Negative (Negative) 05/28/19 09:51 Proteinase 3 (PR3) Ab <1.0 AI (<1.0) 05/28/19 09:51 Myeloperoxidase Ab <1.0 AI (<1.0) 05/28/19 09:51 Complement C3 117 mg/dL (82-185) 05/28/19 09:51 Complement C4 24 mg/dL (15-53) 05/28/19 09:51 Hepatitis A IgM Ab Non-reactive (NonReactive) 05/28/19 12:35 Hep Bs Antigen Non-reactive (Negative) 05/28/19 12:35 Hep B Core IgM Ab Non-reactive (NonReactive) 05/28/19 12:35 Hepatitis C Antibody Non-reactive (NonReactive) 05/28/19 12:35 Schistocytes Smear None seen 05/28/19 Unknown Blood Type A POSITIVE 05/29/19 10:20 Antibody Screen Negative 05/29/19 10:20 Crossmatch See Detail 05/29/19 10:20 Active Medications - Current Medications Current Medications: Generic Name Dose Route Start Last Admin Trade Name Freq PRN Reason Stop Dose Admin Docusate Sodium 100 mg 05/29/19 23:45 06/02/19 22:38 Colace PO 100 mg BID NIKOS Administration Epoetin Carlos 10,000 unit 05/30/19 13:13 06/01/19 12:30 Procrit IV 10,000 unit BRADEN PRN Administration hemodialysis Heparin Sodium (Porcine) 5,000 unit 05/28/19 10:00 06/02/19 22:38 Heparin SUB-Q 5,000 unit Q12HR NIKOS Administration Ondansetron HCl 4 mg 05/28/19 06:12 Zofran IV Q8H PRN Nausea And Vomiting Polyethylene Glycol 17 gm 05/29/19 23:56 05/30/19 00:15 Miralax 3350 PO 17 gm QDAY PRN Administration Constipation Nutrition/Malnutrition Assess - Dietary Evaluation Nutrition/Malnutrition Findings: Nutrition Notes Start: 05/28/19 13:00 Freq: Status: Active Protocol: Document 05/30/19 14:02 AP (Rec: 05/30/19 14:50 AP [id number]) Co-Sign 05/30/19 14:02 LM Nutrition Notes Initial or Follow up Brief Note Current Diet NPO Labs/Tests Na 135 Bun 27 Ca 7 BG 101 Cl 96.5 Pertinent Medications Reviewed Height 5 ft 9 in Weight 75.1 kg [place] Body Weight (kg) 72.72 BMI 24.4 Intake Prior to Admission Poor Weight change and time frame Noted weight gain. Weight Status Appropriate Subjective/Other Information Pt had one round of HD yesterday. Daughter Magdaleno present in room and asking when pt could eat. Reached pt' s nurse who indicated charge nurse put pt on renal diet. However pt now NPO for kidney biopsy tomorrow. Burn Absent Trauma Absent GI Symptoms Nausea Current % PO Negligible #1 Nutrition Diagnosis Malnutrition Diagnosis Progress(for reassessment Continues documentation) Is patient on ventilator? No Is Patient Ambulatory and/or Out of Bed Yes REE-([facility]-ambulatory/OOB) [ [id number] [id number]] Additional Notes PRO: 80-90g/day (1.2 g/kg) Fluid: 1ml/kcal/per MD Nutrition Intervention Change Diet Order: Renal diet when medically feasible. Goal #1 Pt meet >80% of kcal/PRO needs . Anticipated Discharge Needs: Renal diet Follow-Up By: 06/04/19 Additional Comments F/U for PO intakes; need for ONS, wt changes.
--- NOTE | 2019-06-03 08:54 | Progress Note ---
Assessment and Plan Severe renal failure, prerenal azotemia vs. ATN from dehydration and NSAIDs Hyperkalemia secondary to DMITRIY Anemia, possible secondary to CKD Nausea and vomiting with elevated lipase - 24 hours creatinine clearance is pending but remains oliguric - permcath requested today, case management request for outpatient HD in [facility] today - HD tomorrow via permcath - s/p kidney biopsy, results may take up to 5 days - Secondary GN, paraprotein and vasculitis work up in progress - So far Hep panel is negative Schistocytes, NANDINI, ANCA are negative with normal complement - Urine eosinophils- none seen - Renal US- No hydronephrosis. Medical renal disease. - Iron panel ordered, consider consulting GI to r/o GI bleed, epogen with HD - Renally dose meds - Strict I&O - Avoid nephrotoxic agents Williams Olea MD [phone] Subjective Date of service: 06/03/19 Principal diagnosis: severe renal failure Interval history: was in IR suite this AM Objective - Vital Signs Vital signs: Vital Signs - 12hr 06/02/19 06/02/19 06/03/19 22:00 23:59 04:29 Temperature 98.2 F 98.2 F Pulse Rate 93 H 93 H 68 Respiratory 19 18 Rate Blood Pressure 119/66 Blood Pressure 128/64 [Right] O2 Sat by Pulse 95 96 Oximetry - Lab 06/03/19 07:26 06/03/19 07:26 Most recent lab results Calcium 7.6 mg/dL (8.4-10.2) L 06/03/19 07:26 Phosphorus 4.50 mg/dL (2.5-4.5) D 06/03/19 07:26 Magnesium 1.70 mg/dL (1.7-2.3) 06/02/19 06:00 Urine Creatinine 94.0 mg/dL (0.1-20.0) H 05/29/19 05:50 Urine Creatinine 97.3 mg/dL (0.1-20.0) H 05/29/19 05:50 Urine Sodium 51 mmol/L 05/29/19 05:50 Urine Total Protein 296 mg/dL (5-11.8) H 05/29/19 05:50 Medications & Allergies - Medications Allergies/Adverse Reactions: Allergies No Known Allergies Allergy (Unverified 12/15/14 14:55) Home Medications: Home Medications Medication Instructions Recorded Confirmed Last Taken Type Meclizine [Antivert] 25 mg PO ONCE 06/02/19 06/02/19 Unknown History Naproxen Sodium 500 mg PO ONCE 06/02/19 06/02/19 Unknown History Pantoprazole [Protonix TAB] 40 mg PO ONCE 06/02/19 06/02/19 Unknown History Active Medications: Generic Name Dose Route Start Last Admin Trade Name Freq PRN Reason Stop Dose Admin Docusate Sodium 100 mg 05/29/19 23:45 06/02/19 22:38 Colace PO 100 mg BID NIKOS Administration Epoetin Carlos 10,000 unit 05/30/19 13:13 06/01/19 12:30 Procrit IV 10,000 unit BRADEN PRN Administration hemodialysis Heparin Sodium (Porcine) 5,000 unit 05/28/19 10:00 06/02/19 22:38 Heparin SUB-Q 5,000 unit Q12HR NIKOS Administration Ondansetron HCl 4 mg 05/28/19 06:12 Zofran IV Q8H PRN Nausea And Vomiting Polyethylene Glycol 17 gm 05/29/19 23:56 05/30/19 00:15 Miralax 3350 PO 17 gm QDAY PRN Administration Constipation
[2019-06-03] MEDS: COLACE PO SCH ×2 (10:05→21:10)
[2019-06-03] MEDS: HEPARIN SUB-Q SCH ×2 (10:05→21:10)
[2019-06-03] MEDS ORDERED: HEPARIN/NS 5000 UNIT/500ML(CATH LAB) 500 ML IR ONE (10:37)
[2019-06-03] MEDS ORDERED: VERSED ONE (10:38)
[2019-06-03] MEDS ORDERED: NACL 0.9% 250ML 250 ML ONE (10:38)
[2019-06-03] MEDS ORDERED: SUBLIMAZE ONE (10:38)
[2019-06-03] MEDS: XYLOCAINE 1%/ EPI 1:100,000 INFILTRATI ONE ×2 (11:09→11:12)
[2019-06-03] MEDS: HEPARIN 10,000 UNITS/10 ML ONE ×2 (11:20→11:21)
--- NOTE | 2019-06-03 11:52 | Consultation ---
History of Present Illness - Reason for Consult Consult date: 06/03/19 ARF - History of Present Illness 79 year old AAM with GERD and arthritis presented to the ER for worsening nausea and vomiting and poor oral intake for the last week, his labs were noted for severe renal failure and hyperkalemia, I was contacted by ER physician and I requested hyperkalemia therapy including insulin, D50W amp, IV calcium and bicarb drip and repeat BMP in 2 hours, I was contacted by Dr guajardo regarding his renal failure, unfortunately BMP was not repeated and bicarb drip was not started, BMP was ordered STAT by Dr Guajardo but results were not available when I interviewed the patient, per ER nurse, she was busy and did not have the chance to collect it. the patient and family stated they were not aware of any kidney condition and he has never seen a kidney specialist in the past. Vascular consulted for ARF requiring hemodialysis. Vascath placed. Had to be converted to permcath. Vascular consulted. Past History Past Medical History: GERD Social history: Lives alone Family history: no significant family history Medications and Allergies Allergies Allergy/AdvReac Type Severity Reaction Status Date / Time No Known Allergies Allergy Unverified 08/04/14 14:55 Home Medications Medication Instructions Recorded Confirmed Last Taken Type Meclizine [Antivert] 25 mg PO ONCE 06/02/19 06/02/19 Unknown History Naproxen Sodium 500 mg PO ONCE 06/02/19 06/02/19 Unknown History Pantoprazole [Protonix TAB] 40 mg PO ONCE 06/02/19 06/02/19 Unknown History Active Meds: Active Medications Docusate Sodium (Colace) 100 mg PO BID [facility] Last Admin: 06/03/19 10:05 Dose: Not Given Documented by: Epoetin Carlos (Procrit) 10,000 unit IV BRADEN PRN PRN Reason: hemodialysis Last Admin: 06/01/19 12:30 Dose: 10,000 unit Documented by: Heparin Sodium (Porcine) (Heparin) 5,000 unit SUB-Q Q12HR [facility] Last Admin: 06/03/19 10:05 Dose: Not Given Documented by: Ondansetron HCl (Zofran) 4 mg IV Q8H PRN PRN Reason: Nausea And Vomiting Polyethylene Glycol (Miralax 3350) 17 gm PO QDAY PRN PRN Reason: Constipation Last Admin: 05/30/19 00:15 Dose: 17 gm Documented by: Exam - Constitutional Vitals: Temp Pulse Resp BP Pulse Ox 98.2 F 68 19 128/64 98 06/03/19 04:29 06/03/19 10:00 06/03/19 10:00 06/03/19 04:29 06/03/19 10:00 General appearance: Present: no acute distress - EENT Eyes: Present: EOM intact ENT: hearing intact - Psychiatric Psychiatric: appropriate mood/affect, cooperative Results - Labs CBC & Chem 7: 06/03/19 07:26 06/03/19 07:26 Labs: Abnormal lab results 05/29/19 06/03/19 06/03/19 Range/Units 10:20 07:26 07:26 RBC 3.11 L (3.65-5.03) M/mm3 Hgb 9.7 L (11.8-15.2) gm/dl Hct 29.2 L (35.5-45.6) % RDW 17.3 H (13.2-15.2) % Lymph % (Auto) 7.5 L (13.4-35.0) % Lymph # 0.8 L (1.2-5.4) K/mm3 Seg Neutrophils % 87.0 H (40.0-70.0) % Seg Neutrophils # 8.9 H (1.8-7.7) K/mm3 Chloride 96.3 L (98-107) mmol/L BUN 42 H (9-20) mg/dL Creatinine 9.0 H (0.8-1.5) mg/dL Calcium 7.6 L (8.4-10.2) mg/dL Albumin 1.7 L (3.8-4.8) g/dL Fbnvs-3-Nlqhqczaf 0.6 H (0.2-0.3) g/dL Tkdqs-6-Smmpssjzv 1.1 H (0.5-0.9) g/dL Beta Globulins 0.7 H (0.2-0.5) g/dL Gamma Globulins 2.0 H (0.8-1.7) g/dL Abnorm Protein Band 1 1.3 H g/dL PEP Interpretation see below H Assessment and Plan 79-year-old male who presented to the hospital with acute renal failure requiring Vas-Cath placement which did not improve requiring conversion to PermCath. The patient is right-handed, and plan will be to avoid venipunctures in the left upper extremity in order to preserve this access for possible hemodialysis. Hopefully, renal function will improve and patient will not require hemodialysis. Card provided. Vein mapping ordered. Hopefully patient will not require access creation as an outpatient, but if required, vein mapping has ready been performed.
--- NOTE | 2019-06-03 11:56 | Operative Report ---
Operative Report Operative Report: EXAM: 1. Fluoroscopic-guided conversion of a right internal jugular non-tunneled non- cuffed hemodialysis catheter to a tunneled cuffed hemodialysis catheter. DATE: 06/03/19 INDICATION: End-stage renal disease requiring hemodialysis access. MEDICATIONS: Please see nursing report for full details. DEVICES: 23 cm tip to cuff dual lumen hemodialysis catheter MACHINE TOOL DRESSER: LORRAINE SCHWARTZ MD CONTRAST: None PROCEDURE: The risks, benefits, and alternatives were discussed and informed consent was obtained. The patient was transported to the angiography suite in satisfactory/stable condition and was transported onto the angiography table. The patient was prepped and draped in a sterile fashion. The existing vascath was prepped and draped in a sterile fashion. Suture was cut. 0.035 inch wire was advanced through the Vas-Cath into the IVC. Vas-Cath was removed. The wire was cleaned with ChloraPrep. Over the 0.035 inch wire, serial dilatation was performed with ultimate placement of a peel-away sheath. Reverse tunneled PermCath was inserted to the peel-away sheath and positioned in the right atrium. Peel-away sheath removed. A suitable exit site was identified on the patient's chest inferior and lateral to the venotomy. The site was anesthetized with local anesthetic and the track was anesthetized. Dermatotomy was made. Reverse tunneler was then tunneled from dermatotomy to the venotomy site/catheter. The PermCath was attached to the tunneling device and reverse tunneled between the dermatotomy to the venotomy. The catheter was reassembled. 4-0 Vicryl suture was used to close the venotomy and Dermabond was then applied. 2-0 Ethilon suture was used to secure the catheter at the dermatotomy. The catheter was charged with heparin 1000 units/mL space. Sterile dressing and Biopatch applied. The patient was transferred from the angiography suite back to the floor in stable condition. FINDINGS: 1. Excellent flow was obtained through the dialysis catheter with 20 mL syringes. 2. The catheter tip is in the right atrium. IMPRESSION: 1. Fluoroscopic-guided conversion of a right internal jugular non-tunneled non- cuffed hemodialysis catheter to a tunneled cuffed hemodialysis catheter.
--- NOTE | 2019-06-03 12:06 | Event Note ---
Date: 06/03/19 GI has been consulted on patient for evaluation of anemia. H/H stable this am with no active signs of bleeding per nursing. Patient off floor for permcath placement. Full consult to follow once patient is available.
[2019-06-03] MEDS ORDERED: GOLYTELY PO ONE (14:13)
--- NOTE | 2019-06-03 14:14 | Gastroenterology Consultation ---
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 Upon admission, he was found to have severe acute renal failure with hyperkalemia and was started on dialysis (nephrology following; s/p permcath placement today). He was also found to have anemia with H/H 5.8/17.3 and stool occult positive to which GI has been consulted. This afternoon patient was sitting up in bed w/o acute distress. Currently w/o GI complaints or active signs of bleeding. Stool brown per nursing. Denies fever, CP, SOB, abd pain, N/V, hematemesis, melena, diarrhea, constipation, or hematochezia. No prior hx of GI bleeding. States he is unaware of every undergoing colonoscopy or EGD. No Fhx of GI cancers. Past History Past Medical History: other (as per HPI) Past Surgical History: No surgical history Social history: Lives alone, smoking. denies: alcohol abuse Family history: no significant family history Medications and Allergies Allergies Allergy/AdvReac Type Severity Reaction Status Date / Time No Known Allergies Allergy Unverified 08/04/14 14:55 Home Medications Medication Instructions Recorded Confirmed Last Taken Type Meclizine [Antivert] 25 mg PO ONCE 06/02/19 06/02/19 Unknown History Naproxen Sodium 500 mg PO ONCE 06/02/19 06/02/19 Unknown History Pantoprazole [Protonix TAB] 40 mg PO ONCE 06/02/19 06/02/19 Unknown History Active Meds: Active Medications Docusate Sodium (Colace) 100 mg PO BID [facility] Last Admin: 06/03/19 10:05 Dose: Not Given Documented by: Epoetin Carlos (Procrit) 10,000 unit IV BRADEN PRN PRN Reason: hemodialysis Last Admin: 06/01/19 12:30 Dose: 10,000 unit Documented by: Heparin Sodium (Porcine) (Heparin) 5,000 unit SUB-Q Q12HR [facility] Last Admin: 06/03/19 10:05 Dose: Not Given Documented by: Ondansetron HCl (Zofran) 4 mg IV Q8H PRN PRN Reason: Nausea And Vomiting Polyethylene Glycol (Miralax 3350) 17 gm PO QDAY PRN PRN Reason: Constipation Last Admin: 05/30/19 00:15 Dose: 17 gm Documented by: medication reviewed/updated as required Review of Systems - Review of Systems All systems: negative Constitutional: weakness, poor appetite Gastrointestinal: nausea, vomiting, no abdominal pain, no hematemesis, no melena, no hematochezia Exam - Constitutional Vital Signs: Temp Pulse Resp BP Pulse Ox 98.2 F 68 19 128/64 98 06/03/19 04:29 06/03/19 10:00 06/03/19 10:00 06/03/19 04:29 06/03/19 10:00 General appearance: no acute distress - EENT Eyes: PERRL, EOM intact ENT: hearing intact - Respiratory Respiratory effort: normal - Cardiovascular Rhythm: regular - Gastrointestinal General gastrointestinal: Present: soft, non-tender, non-distended, normal bowel sounds - Neurologic Neurological: alert and oriented x3 - Labs CBC & Chem 7: 06/03/19 07:26 06/03/19 07:26 Lab Results: Laboratory Results - last 24 hr 05/28/19 05/29/19 06/02/19 09:51 10:20 06:00 WBC RBC Hgb Hct MCV MCH MCHC RDW Plt Count Lymph % (Auto) Teller % (Auto) Eos % (Auto) Baso % (Auto) Lymph # Teller # Eos # Baso # Seg Neutrophils % Seg Neutrophils # Sodium Potassium Chloride Carbon Dioxide Anion Gap BUN Creatinine Estimated GFR BUN/Creatinine Ratio Glucose Calcium Phosphorus Magnesium 1.70 Serum Total Protein 6.5 Albumin 1.7 L Hwfsq-2-Hdxcoubaz 0.6 H Ircif-9-Xaesuzcxk 1.1 H Beta Globulins 0.7 H Gamma Globulins 2.0 H Abnorm Protein Band 1 1.3 H PEP Interpretation see below H Proteinase 3 (PR3) Ab <1.0 Myeloperoxidase Ab <1.0 06/03/19 06/03/19 07:26 07:26 WBC 10.2 RBC 3.11 L Hgb 9.7 L Hct 29.2 L MCV 94 MCH 31 MCHC 33 RDW 17.3 H Plt Count 145 Lymph % (Auto) 7.5 L Teller % (Auto) 5.0 Eos % (Auto) 0.2 Baso % (Auto) 0.3 Lymph # 0.8 L Teller # 0.5 Eos # 0.0 Baso # 0.0 Seg Neutrophils % 87.0 H Seg Neutrophils # 8.9 H Sodium 139 Potassium 4.6 Chloride 96.3 L Carbon Dioxide 23 Anion Gap 24 BUN 42 H Creatinine 9.0 H Estimated GFR 7 BUN/Creatinine Ratio 5 Glucose 79 Calcium 7.6 L Phosphorus 4.50 D Magnesium Serum Total Protein Albumin Ifjka-0-Squscsgmo Vduwu-0-Uuvedzerg Beta Globulins Gamma Globulins Abnorm Protein Band 1 PEP Interpretation Proteinase 3 (PR3) Ab Myeloperoxidase Ab Assessment and Plan 1.anemia -stool occult positive -H/H 9.1/26.9- stable s/p blood transfusion (5.8/17.3 on admission) -continue to monitor H/H and transfuse as needed -no active signs of bleeding- currently HD stable -etiology unclear -will schedule for EGD/colonoscopy tomorrow for further evaluation (r/o GI pathology) -decrease diet to clears today then NPO after MN (hold heparin) -start on PPI -continue supportive care -will follow
[2019-06-03] MEDS: PROTONIX PO SCH (16:57)
[2019-06-03] MEDS: MIRALAX 3350 PO PRN (16:57)
--- NOTE | 2019-06-03 18:27 | Vascular Lab Report ---
DOPPLER ULTRASOUND UPPER EXTREMITY VENOUS MAPPING, BILATERAL INDICATION: vein mapping for ESRD TECHNIQUE: Grayscale, color and spectral Doppler imaging of the venous system of the right and left upper extrem ities was performed. COMPARISON: None available. FINDINGS: RIGHT UPPER EXTREMITY: Subclavian Vein: Patent. Axillary Vein: Patent. Cephalic Vein (Diameter / Depth in mm): - Upper Arm: 0.13 / not recorded - Mid Arm: 0.11 / - Antecubital: 0.10 / - Upper Forearm: 0.15 / - Mid Forearm: 0.15 / - Wrist: 0.12 / Basilic Vein (Diameter / Depth in mm): - Upper Arm: 0.32 / not recorded - Mid Arm: 0.26 / - Antecubital: 0.22 / - Upper Forearm: 0.09 / - Mid Forearm: 0.11 / - Wrist: 0.1 / Peak systolic velocity within the radial artery is 51 cm/s. Peak systolic velocity within the brachial artery is 91 cm/s. LEFT UPPER EXTREMITY: Subclavian Vein: Patent. Axillary Vein: Patent. Cephalic Vein (Diameter / Depth in mm): - Upper Arm: 0.14 / not recorded - Mid Arm: 0.1 / - Antecubital: 0.15 and containing a thrombus / - Upper Forearm: 0.14 / - Mid Forearm: 0.13 / - Wrist: 0.12 / Basilic Vein (Diameter / Depth in mm): - Upper Arm: 0.24 / not recorded - Mid Arm: 0.18 / - Antecubital: 0.13 / - Upper Forearm: 0.12 / - Mid Forearm: 0.1 / - Wrist: 0.8 / Peak systolic velocity within the radial artery is 80 cm/s. Peak systolic velocity within the brachial artery is 90 cm/s. Additional Findings: None. IMPRESSION: 1. Superficial thrombus in the left cephalic vein at the level of the antecubital fossa. 2. Upper extremity venous mapping as above. Signer Name: Chet Palmer MD Signed: 06/03/2019 6:23 PM Workstation Name: [id number]
[2019-06-04 06:08] LABS: Basophils % (Auto) 0.3 % (0.0-1.8); Eosinophils % (Auto) 0.2 % (0.0-4.3); Hematocrit 25.5 % (35.5-45.6); Hemoglobin 8.5 gm/dl (11.8-15.2); Lymphocytes # (Auto) 0.4 K/mm3 (1.2-5.4); Lymphocytes % (Auto) 4.9 % (13.4-35.0); Mean Corpuscular HGB Conc 34 % (32-34); Mean Corpuscular Volume 93 fl (84-94); Monocytes # (Auto) 0.5 K/mm3 (0.0-0.8); Monocytes % (Auto) 5.4 % (0.0-7.3); Platelet Count 138 K/mm3 (140-440); Red Blood Count 2.74 M/mm3 (3.65-5.03); Red Cell Distribution Width 17.3 % (13.2-15.2)
[2019-06-04 06:32] LABS: Calcium 7.1 mg/dL (8.4-10.2)
[2019-06-04] MEDS ORDERED: PHARMACY CONSULT (FOR PT FALL) PO ONE (09:29)
--- NOTE | 2019-06-04 09:37 | Progress Note ---
Assessment and Plan Severe renal failure, prerenal azotemia vs. 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, risk and benefit of immunosupressive therapy discussed with patient and family including increased risk for infection and malignancy, I also explained to patient his chance of recovery is low due to advanced kidney disease, all questions answered and he is interested in moving forward with treatment, will start prednisone 60 mg po and Cyclophosphamide 100 mg qday (placed pharmacy request for Cytoxan, unclear if it will be available while inpatient) he will also need double strength Bactrim 3 times a week once started on Cytoxan - can be discharged fom renal standpoint after outpatient dialysis is done - HD today for clearance and volume removal - GI consulted for anemia - Renally dose meds - Strict I&O - Avoid nephrotoxic agents Williams Olea MD [phone] Subjective Date of service: 06/04/19 Principal diagnosis: severe renal failure Interval history: tolerated procedure well yesterday Objective - Vital Signs Vital signs: Vital Signs - 12hr 06/03/19 06/03/19 06/04/19 23:00 23:53 03:56 Temperature 98.2 F 98.1 F Pulse Rate 102 H 91 H 87 Pulse Rate [ Apical] Pulse Rate [ Left Radial] Pulse Rate [ Right Radial] Respiratory 18 18 Rate Blood Pressure 108/60 121/66 O2 Sat by Pulse 96 97 Oximetry 06/04/19 06/04/19 08:05 08:14 Temperature 97.5 F L Pulse Rate Pulse Rate [ 102 H Apical] Pulse Rate [ 102 H Left Radial] Pulse Rate [ 102 H Right Radial] Respiratory 19 18 Rate Blood Pressure 114/65 O2 Sat by Pulse 98 Oximetry - General Appearance General appearance: well-developed, well-nourished, appears stated age EENT: ATNC, PERRL, mucous membranes moist Neck: no JVD, no carotid bruit Respiratory: Present: Clear to Ascultation. Absent: Rales Cardiology: regular, S1S2 Gastrointestinal: normoactive bowel sounds Integumentary: no rash, warm and dry Neurologic: no focal deficit, no asterixis, alert and oriented x3 Musculoskeletal: other (no edema in BLE) Psychiatric: mood/affect appropriate, cooperative - Lab 06/04/19 05:23 06/04/19 05:23 Most recent lab results Calcium 7.1 mg/dL (8.4-10.2) L 06/04/19 05:23 Phosphorus 4.80 mg/dL (2.5-4.5) H 06/04/19 05:23 Magnesium 1.70 mg/dL (1.7-2.3) 06/02/19 06:00 Urine Creatinine 94.0 mg/dL (0.1-20.0) H 05/29/19 05:50 Urine Creatinine 97.3 mg/dL (0.1-20.0) H 05/29/19 05:50 Urine Sodium 51 mmol/L 05/29/19 05:50 Urine Total Protein 296 mg/dL (5-11.8) H 05/29/19 05:50 Medications & Allergies - Medications Allergies/Adverse Reactions: Allergies No Known Allergies Allergy (Unverified 08/04/14 14:55) Home Medications: Home Medications Medication Instructions Recorded Confirmed Last Taken Type Meclizine [Antivert] 25 mg PO ONCE 06/02/19 06/02/19 Unknown History Naproxen Sodium 500 mg PO ONCE 06/02/19 06/02/19 Unknown History Pantoprazole [Protonix TAB] 40 mg PO ONCE 06/02/19 06/02/19 Unknown History Active Medications: Generic Name Dose Route Start Last Admin Trade Name Freq PRN Reason Stop Dose Admin Docusate Sodium 100 mg 05/29/19 23:45 06/03/19 21:10 Colace PO Not Given BID NIKOS Epoetin Carlos 10,000 unit 05/30/19 13:13 06/01/19 12:30 Procrit IV 10,000 unit BRADEN PRN Administration hemodialysis Heparin Sodium (Porcine) 5,000 unit 05/28/19 10:00 06/03/19 21:10 Heparin SUB-Q Not Given Q12HR NIKOS Miscellaneous 1 each 06/04/19 09:29 Pharmacy Consult (For Pt Fall) PO 06/04/19 09:30 ONCE ONE Protocol Ondansetron HCl 4 mg 05/28/19 06:12 Zofran IV Q8H PRN Nausea And Vomiting Pantoprazole Sodium 40 mg 06/03/19 16:00 06/03/19 16:57 Protonix PO 40 mg QDAY NIKOS Administration Polyethylene Glycol 17 gm 05/29/19 23:56 06/03/19 16:57 Miralax 3350 PO 17 gm QDAY PRN Administration Constipation Prednisone 60 mg 06/04/19 10:00 Deltasone PO QDAY NIKOS
[2019-06-04] MEDS: COLACE PO SCH ×2 (10:47→21:22)
[2019-06-04] MEDS: HEPARIN SUB-Q SCH ×2 (10:47→21:23)
[2019-06-04] MEDS: PROTONIX PO SCH (10:47)
[2019-06-04] MEDS: DELTASONE PO SCH (10:48)
[2019-06-04] MEDS ORDERED: DIPRIVAN 10 MG/ML IV ONE ×2 (11:10)
[2019-06-04] MEDS: PROCRIT IV PRN (13:24)
--- NOTE | 2019-06-04 14:16 | Gastroenterology Progress Note ---
Assessment and Plan 1.anemia -stool occult positive -H/H 8.5/25.5 (s/p blood transfusion; 5.8/17.3 on admission) -continue to monitor H/H and transfuse as needed -no active signs of bleeding- currently HD stable -etiology unclear -patient unable to complete colon prep overnight (drank 1/2 with last stool liquid brown). Will cancel EGD/colonoscopy today and reschedule for tomorrow (discussed with patient and he is agreeable) -okay for clears today then NPO after MN (hold heparin) -continue PPI -continue supportive care -will follow Subjective Date of service: 06/04/19 Principal diagnosis: anemia Interval history: No acute distress or active signs of bleeding. Only drank 1/2 of colon prep overnight with last BM liquid brown. Objective - Constitutional Vitals: Temp Pulse Resp BP Pulse Ox 97.2 F L 79 18 130/72 98 06/04/19 12:07 06/04/19 12:07 06/04/19 12:07 06/04/19 12:07 06/04/19 10:00 General appearance: no acute distress - EENT Eyes: PERRL, EOM intact ENT: hearing intact - Respiratory Respiratory effort: normal - Cardiovascular Rhythm: regular - Gastrointestinal General gastrointestinal: Present: soft, non-tender, non-distended, normal bowel sounds - Neurologic Neurological: alert and oriented x3 - Labs CBC & Chem 7: 06/04/19 05:23 06/04/19 05:23 Labs: Laboratory Results - last 24 hr 06/04/19 06/04/19 05:23 05:23 WBC 8.8 RBC 2.74 L Hgb 8.5 L Hct 25.5 L MCV 93 MCH 31 MCHC 34 RDW 17.3 H Plt Count 138 L Lymph % (Auto) 4.9 L Isabella % (Auto) 5.4 Eos % (Auto) 0.2 Baso % (Auto) 0.3 Lymph # 0.4 L Isabella # 0.5 Eos # 0.0 Baso # 0.0 Seg Neutrophils % 89.2 H Seg Neutrophils # 7.9 H Sodium 139 Potassium 4.5 Chloride 98.4 Carbon Dioxide 22 Anion Gap 23 BUN 61 H Creatinine 11.1 H Estimated GFR 5 BUN/Creatinine Ratio 5 Glucose 88 Calcium 7.1 L Phosphorus 4.80 H
[2019-06-04] MEDS ORDERED: CEPHULAC PO ONE (19:27)
[2019-06-04] MEDS ORDERED: GOLYTELY PO ONE (20:00)
--- NOTE | 2019-06-04 21:12 | Progress Note ---
Assessment and Plan - Patient Problems (1) Acute renal failure Current Visit: Yes Status: Acute Plan to address problem: acute renal failure now chronic renal failure. Has hemodialysis set up. As outpatient will proceed after discharge. Patient will require cyclophosphamide started on prednisone. Strength Bactrim 3 times per week and Cytoxan. Patient stable for discharge in a.m. (2) Hyperkalemia Current Visit: Yes Status: Resolved (3) Nausea and vomiting Current Visit: Yes Status: Acute Plan to address problem: Nausea vomiting was multifactorial secondary to renal failure and possible peptic ulcer disease. (4) Acute blood loss anemia Current Visit: Yes Status: Acute Plan to address problem: She is scheduled to have EGD colonoscopy done this a.m. Failed study secondary to inappropriate prep. History Interval history: Patient 71 years old since with weakness and abdominal pain nausea vomiting. Initial workup patient found to have a hemoglobin and hematocrit of 5 and 17. Admitted for anemia workup. 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 Patient started on prednisone and Cytoxan. Cyclophosphamide. She was scheduled to have colonoscopy today for further evaluation of GI bleed and decrease in hemoglobin and hematocrit. Patient failed prep and will have another bowel prep today have colonoscopy in a.m. Hospitalist Physical - Constitutional Vitals: Temp Pulse Resp BP Pulse Ox 97.2 F L 88 18 137/63 98 06/04/19 13:30 06/04/19 17:00 06/04/19 13:30 06/04/19 13:30 06/04/19 10:00 General appearance: Present: no acute distress - EENT Eyes: Present: PERRL, EOM intact ENT: hearing intact, clear oral mucosa, dentition normal - Neck Neck: Present: supple, normal ROM - Respiratory Respiratory effort: normal Respiratory: bilateral: CTA - Cardiovascular Rhythm: regular - Extremities Extremities: no ischemia, pulses intact, pulses symmetrical, No edema, normal temperature, normal color Peripheral Pulses: within normal limits - Abdominal General gastrointestinal: soft, non-tender, tender, normal bowel sounds, no he patomegaly, no splenomegaly - Psychiatric Psychiatric: appropriate mood/affect, intact judgment & insight, memory intact - Neurologic Neurologic: CNII-XII intact, moves all extremities Results - Labs CBC & Chem 7: 06/04/19 05:23 06/04/19 05:23 Labs: Laboratory Last Values WBC 8.8 K/mm3 (4.5-11.0) 06/04/19 05:23 RBC 2.74 M/mm3 (3.65-5.03) L 06/04/19 05:23 Hgb 8.5 gm/dl (11.8-15.2) L 06/04/19 05:23 Hct 25.5 % (35.5-45.6) L 06/04/19 05:23 MCV 93 fl (84-94) 06/04/19 05:23 MCH 31 pg (28-32) 06/04/19 05:23 MCHC 34 % (32-34) 06/04/19 05:23 RDW 17.3 % (13.2-15.2) H 06/04/19 05:23 Plt Count 138 K/mm3 (140-440) L 06/04/19 05:23 Lymph % (Auto) 4.9 % (13.4-35.0) L 06/04/19 05:23 Wolfe % (Auto) 5.4 % (0.0-7.3) 06/04/19 05:23 Eos % (Auto) 0.2 % (0.0-4.3) 06/04/19 05:23 Baso % (Auto) 0.3 % (0.0-1.8) 06/04/19 05:23 Lymph # 0.4 K/mm3 (1.2-5.4) L 06/04/19 05:23 Wolfe # 0.5 K/mm3 (0.0-0.8) 06/04/19 05:23 Eos # 0.0 K/mm3 (0.0-0.4) 06/04/19 05:23 Baso # 0.0 K/mm3 (0.0-0.1) 06/04/19 05:23 Add Manual Diff Complete 05/28/19 04:52 Total Counted 100 05/28/19 04:52 Seg Neutrophils % 89.2 % (40.0-70.0) H 06/04/19 05:23 Seg Neuts % (Manual) 92.0 % (40.0-70.0) H 05/28/19 04:52 Band Neutrophils % 0 % 05/28/19 04:52 Lymphocytes % (Manual) 5.0 % (13.4-35.0) L 05/28/19 04:52 Reactive Lymphs % (Man) 0 % 05/28/19 04:52 Monocytes % (Manual) 3.0 % (0.0-7.3) 05/28/19 04:52 Eosinophils % (Manual) 0 % (0.0-4.3) 05/28/19 04:52 Basophils % (Manual) 0 % (0.0-1.8) 05/28/19 04:52 Metamyelocytes % 0 % 05/28/19 04:52 Myelocytes % 0 % 05/28/19 04:52 Promyelocytes % 0 % 05/28/19 04:52 Blast Cells % 0 % 05/28/19 04:52 Nucleated RBC % Not Reportable 05/28/19 04:52 Seg Neutrophils # 7.9 K/mm3 (1.8-7.7) H 06/04/19 05:23 Seg Neutrophils # Man 9.5 K/mm3 (1.8-7.7) H 05/28/19 04:52 Band Neutrophils # 0.0 K/mm3 05/28/19 04:52 Lymphocytes # (Manual) 0.5 K/mm3 (1.2-5.4) L 05/28/19 04:52 Abs React Lymphs (Man) 0.0 K/mm3 05/28/19 04:52 Monocytes # (Manual) 0.3 K/mm3 (0.0-0.8) 05/28/19 04:52 Eosinophils # (Manual) 0.0 K/mm3 (0.0-0.4) 05/28/19 04:52 Basophils # (Manual) 0.0 K/mm3 (0.0-0.1) 05/28/19 04:52 Metamyelocytes # 0.0 K/mm3 05/28/19 04:52 Myelocytes # 0.0 K/mm3 05/28/19 04:52 Promyelocytes # 0.0 K/mm3 05/28/19 04:52 Blast Cells # 0.0 K/mm3 05/28/19 04:52 WBC Morphology Not Reportable 05/28/19 04:52 Hypersegmented Neuts Not Reportable 05/28/19 04:52 Hyposegmented Neuts Not Reportable 05/28/19 04:52 Hypogranular Neuts Not Reportable 05/28/19 04:52 Smudge Cells Not Reportable 05/28/19 04:52 Toxic Granulation Not Reportable 05/28/19 04:52 Toxic Vacuolation Not Reportable 05/28/19 04:52 Dohle Bodies Not Reportable 05/28/19 04:52 Pelger-Huet Anomaly Not Reportable 05/28/19 04:52 Brett Rods Not Reportable 05/28/19 04:52 Platelet Estimate Consistent w auto 05/28/19 04:52 Clumped Platelets Not Reportable 05/28/19 04:52 Plt Clumps, EDTA Not Reportable 05/28/19 04:52 Large Platelets Not Reportable 05/28/19 04:52 Giant Platelets Not Reportable 05/28/19 04:52 Platelet Satelliting Not Reportable 05/28/19 04:52 Plt Morphology Comment Not Reportable 05/28/19 04:52 RBC Morphology Not Reportable 05/28/19 04:52 Dimorphic RBCs Not Reportable 05/28/19 04:52 Polychromasia Not Reportable 05/28/19 04:52 Hypochromasia 1+ 05/28/19 04:52 Poikilocytosis Not Reportable 05/28/19 04:52 Anisocytosis 1+ 05/28/19 04:52 Microcytosis Not Reportable 05/28/19 04:52 Macrocytosis Not Reportable 05/28/19 04:52 Spherocytes Not Reportable 05/28/19 04:52 Pappenheimer Bodies Not Reportable 05/28/19 04:52 Sickle Cells Not Reportable 05/28/19 04:52 Target Cells Not Reportable 05/28/19 04:52 Tear Drop Cells Not Reportable 05/28/19 04:52 Ovalocytes Not Reportable 05/28/19 04:52 Helmet Cells Not Reportable 05/28/19 04:52 Cox-Agnew Bodies Not Reportable 05/28/19 04:52 [place] Rings Not Reportable 05/28/19 04:52 [place] Cells Not Reportable 05/28/19 04:52 Bite Cells Not Reportable 05/28/19 04:52 Crenated Cell Not Reportable 05/28/19 04:52 Elliptocytes Not Reportable 05/28/19 04:52 Acanthocytes (Spur) Not Reportable 05/28/19 04:52 Rouleaux Not Reportable 05/28/19 04:52 Hemoglobin C Crystals Not Reportable 05/28/19 04:52 Schistocytes Not Reportable 05/28/19 04:52 Malaria parasites Not Reportable 05/28/19 04:52 Mynor Bodies Not Reportable 05/28/19 04:52 Hem Pathologist Commnt No 05/28/19 04:52 PT 15.5 Sec. (12.2-14.9) H 05/30/19 13:12 INR 1.26 (0.87-1.13) H 05/30/19 13:12 APTT 30.4 Sec. (24.2-36.6) 05/30/19 13:12 Sodium 139 mmol/L (137-145) 06/04/19 05:23 Potassium 4.5 mmol/L (3.6-5.0) 06/04/19 05:23 Chloride 98.4 mmol/L (98-107) 06/04/19 05:23 Carbon Dioxide 22 mmol/L (22-30) 06/04/19 05:23 Anion Gap 23 mmol/L 06/04/19 05:23 BUN 61 mg/dL (9-20) H 06/04/19 05:23 Creatinine 11.1 mg/dL (0.8-1.5) H 06/04/19 05:23 Estimated GFR 5 ml/min 06/04/19 05:23 BUN/Creatinine Ratio 5 % 06/04/19 05:23 Glucose 88 mg/dL (75-100) 06/04/19 05:23 Calcium 7.1 mg/dL (8.4-10.2) L 06/04/19 05:23 Phosphorus 4.80 mg/dL (2.5-4.5) H 06/04/19 05:23 Magnesium 1.70 mg/dL (1.7-2.3) 06/02/19 06:00 Ferritin > 2000.0 ng/mL (13.0-400.0) H 05/29/19 05:28 Total Bilirubin 0.30 mg/dL (0.1-1.2) 05/28/19 04:52 Direct Bilirubin < 0.2 mg/dL (0-0.2) 05/28/19 04:52 Indirect Bilirubin 0.1 mg/dL 05/28/19 04:52 AST 9 units/L (5-40) 05/28/19 04:52 ALT < 5 units/L (7-56) L 05/28/19 04:52 Alkaline Phosphatase 55 units/L (35-129) 05/28/19 04:52 Lactate Dehydrogenase 200 units/L (91-180) H 05/28/19 09:51 Total Creatine Kinase 80 units/L (55-170) 05/28/19 19:24 CK-MB (CK-2) 2.4 ng/mL (0.0-4.0) 05/28/19 19:24 CK-MB (CK-2) Rel Index 3.0 (0-4) 05/28/19 19:24 Troponin T 0.085 ng/mL (0.00-0.029) H 05/28/19 19:24 Serum Total Protein 6.5 g/dL (6.1-8.1) 05/29/19 10:20 Total Protein 8.9 g/dL (6.3-8.2) H 05/28/19 04:52 Albumin 1.7 g/dL (3.8-4.8) L 05/29/19 10:20 Albumin/Globulin Ratio 0.4 % 05/28/19 04:52 Szina-3-Hutadlelz 0.6 g/dL (0.2-0.3) H 05/29/19 10:20 Cuuws-3-Kaincrtpf 1.1 g/dL (0.5-0.9) H 05/29/19 10:20 Beta Globulins 0.7 g/dL (0.2-0.5) H 05/29/19 10:20 Gamma Globulins 2.0 g/dL (0.8-1.7) H 05/29/19 10:20 Abnorm Protein Band 1 1.3 g/dL H 05/29/19 10:20 PEP Interpretation see below H 05/29/19 10:20 Triglycerides 67 mg/dL (2-149) 05/28/19 04:52 Cholesterol 101 mg/dL (50-199) 05/28/19 04:52 LDL Cholesterol Direct 61 mg/dL (50-130) 05/28/19 04:52 HDL Cholesterol 25 mg/dL (40-59) L 05/28/19 04:52 Cholesterol/HDL Ratio 4.04 % 05/28/19 04:52 Lipase 161 units/L (13-60) H 05/28/19 05:03 Urine Color Yellow (Yellow) 05/29/19 05:50 Urine Turbidity Cloudy (Clear) 05/29/19 05:50 Urine pH 6.0 (5.0-7.0) 05/29/19 05:50 Ur Specific [place] 1.012 (1.003-1.030) 05/29/19 05:50 Urine Protein 100 mg/dl mg/dL (Negative) 05/29/19 05:50 Urine Glucose (UA) 50 mg/dL (Negative) 05/29/19 05:50 Urine Ketones Neg mg/dL (Negative) 05/29/19 05:50 Urine Blood Lg (Negative) 05/29/19 05:50 Urine Nitrite Neg (Negative) 05/29/19 05:50 Urine Bilirubin Neg (Negative) 05/29/19 05:50 Urine Urobilinogen < 2.0 mg/dL (<2.0) 05/29/19 05:50 Ur Leukocyte Esterase Tr (Negative) 05/29/19 05:50 Urine WBC (Auto) 10.0 /HPF (0.0-6.0) H 05/29/19 05:50 Urine RBC (Auto) 49.0 /HPF (0.0-6.0) 05/29/19 05:50 Urine Bacteria (Auto) 1+ /HPF (Negative) 05/29/19 05:50 Urine Mucus Few /HPF 05/29/19 05:50 Urine Eosinophils None seen (None Seen) 05/29/19 05:50 Urine Creatinine 94.0 mg/dL (0.1-20.0) H 05/29/19 05:50 Urine Creatinine 97.3 mg/dL (0.1-20.0) H 05/29/19 05:50 Protein/Creatinin Ratio 3.15 05/29/19 05:50 Urine Sodium 51 mmol/L 05/29/19 05:50 Urine Total Protein 296 mg/dL (5-11.8) H 05/29/19 05:50 NANDINI Screen Negative (Negative) 05/28/19 09:51 Proteinase 3 (PR3) Ab <1.0 AI (<1.0) 05/28/19 09:51 Myeloperoxidase Ab <1.0 AI (<1.0) 05/28/19 09:51 Complement C3 117 mg/dL (82-185) 05/28/19 09:51 Complement C4 24 mg/dL (15-53) 05/28/19 09:51 Hepatitis A IgM Ab Non-reactive (NonReactive) 05/28/19 12:35 Hep Bs Antigen Non-reactive (Negative) 05/28/19 12:35 Hep B Core IgM Ab Non-reactive (NonReactive) 05/28/19 12:35 Hepatitis C Antibody Non-reactive (NonReactive) 05/28/19 12:35 Schistocytes Smear None seen 05/28/19 Unknown Blood Type A POSITIVE 05/29/19 10:20 Antibody Screen Negative 05/29/19 10:20 Crossmatch See Detail 05/29/19 10:20 Active Medications - Current Medications Current Medications: Generic Name Dose Route Start Last Admin Trade Name Freq PRN Reason Stop Dose Admin Docusate Sodium 100 mg 05/29/19 23:45 06/04/19 10:47 Colace PO Not Given BID NIKOS Epoetin Carlos 10,000 unit 05/30/19 13:13 06/04/19 13:24 Procrit IV 10,000 unit BRADEN PRN Administration hemodialysis Heparin Sodium (Porcine) 5,000 unit 05/28/19 10:00 06/04/19 10:47 Heparin SUB-Q Not Given Q12HR NIKOS Miscellaneous 1 each 06/04/19 09:29 Pharmacy Consult (For Pt Fall) PO 06/04/19 09:30 ONCE ONE Protocol Ondansetron HCl 4 mg 05/28/19 06:12 Zofran IV Q8H PRN Nausea And Vomiting Pantoprazole Sodium 40 mg 06/03/19 16:00 06/04/19 10:47 Protonix PO Not Given QDAY NIKOS Polyethylene Glycol 17 gm 05/29/19 23:56 06/03/19 16:57 Miralax 3350 PO 17 gm QDAY PRN Administration Constipation Prednisone 60 mg 06/04/19 10:00 06/04/19 10:48 Deltasone PO Not Given QDAY NIKOS Nutrition/Malnutrition Assess - Dietary Evaluation Nutrition/Malnutrition Findings: Nutrition Notes Start: 05/28/19 13:00 Freq: Status: Active Protocol: Document 06/04/19 14:24 RM (Rec: 06/04/19 14:35 RM [email or web address]) Nutrition Notes Initial or Follow up Reassessment Current Diagnosis Acute Kidney Injury Other Pertinent Diagnosis GERD, on HD Current Diet Clear liquid Labs/Tests Reviewed Pertinent Medications Reviewed Height 5 ft 9 in Weight 77.4 kg [place] Body Weight (kg) 72.72 BMI 25.2 Subjective/Other Information Per gastroenterology consultation note there is concern for possible GI bleed. NPO in place earlier today for EGD but cancelled and clear liquid diet ordered because pt did not complete colon prep. EGD rescheduled for tomorrow. Pt stated that he was not consuming any of his meals prior to NPO. Burn Absent Trauma Absent #1 Nutrition Diagnosis Malnutrition Diagnosis Progress(for reassessment Continues documentation) Is patient on ventilator? No Is Patient Ambulatory and/or Out of Bed Yes REE-(Ames-St. Jeor-ambulatory/OOB) [ [id number] [id number]] Calculation Used for Recommendations [facility] Additional Notes PRO: 80-90g/day (1.2 g/kg) Fluid: 1ml/kcal/per Nutrition Intervention Change Diet Order: Advance diet when medically able Add Supplement/Snack (indicate name/kcal Nepro Vanilla 1 daily once /protein ) diet advanced Provides kCal: 425 Provides Protein (gm) 19 Goal #1 Diet advancement Anticipated Discharge Needs: Unable to determine at this time Follow-Up By: 06/06/19 Additional Comments Follow for diet advancement, PO and ONS intakes
[2019-06-05 08:08] LABS: Basophils % (Auto) 0.3 % (0.0-1.8); Eosinophils % (Auto) 0.3 % (0.0-4.3); Hematocrit 27.1 % (35.5-45.6); Lymphocytes # (Auto) 0.6 K/mm3 (1.2-5.4); Lymphocytes % (Auto) 8.6 % (13.4-35.0); Mean Corpuscular HGB Conc 33 % (32-34); Mean Corpuscular Volume 93 fl (84-94); Monocytes # (Auto) 0.5 K/mm3 (0.0-0.8); Monocytes % (Auto) 6.9 % (0.0-7.3); Platelet Count 157 K/mm3 (140-440); Red Blood Count 2.91 M/mm3 (3.65-5.03); Red Cell Distribution Width 17.3 % (13.2-15.2)
[2019-06-05 08:11] LABS: INR 1.23 (0.87-1.13)
[2019-06-05 08:25] LABS: Calcium 7.5 mg/dL (8.4-10.2)
[2019-06-05 08:37] LABS: Albumin 1.9 g/dL (3.9-5); Calcium 7.6 mg/dL (8.4-10.2)
[2019-06-05] MEDS: HEPARIN SUB-Q SCH ×2 (10:00→21:50)
[2019-06-05] MEDS ORDERED: NACL 0.9% 1000 ML 1,000 ML IV SCH (10:00)
[2019-06-05] MEDS ORDERED: DIPRIVAN 10 MG/ML IV ONE ×2 (10:42)
--- NOTE | 2019-06-05 10:42 | Anesthesia Day of Surgery ---
Anesthesia Day of Surgery - Day of Surgery Patient Examined: Yes Patient H&P Reviewed: Yes Patient is NPO: Yes
--- NOTE | 2019-06-05 10:42 | Anesthesia Consultation ---
Anesthesia Consult and Med Hx Date of service: 06/05/19 - Airway Anesthetic Teeth Evaluation: Poor ROM Head & Neck: Adequate Mental/Hyoid Distance: Adequate Mallampati Class: Class III Intubation Access Assessment: Possibly Difficult - Pulmonary Exam CTA: Yes - Cardiac Exam Cardiac Exam: RRR - Pre-Operative Health Status ASA Pre-Surgery Classification: ASA3 Proposed Anesthetic Plan: MAC - Pulmonary Hx Smoking: Yes (1-2CIG/DAY) Hx Respiratory Symptoms: No - Cardiovascular System Hx Hypertension: No Hx Heart Attack/AMI: No - Central Nervous System CVA: No Hx Psychiatric Problems: Yes (dementia) - Gastrointestinal Hx Gastroesophageal Reflux Disease: Yes (controlled) - Endocrine Hx Renal Disease: Yes (ARF on HD; last HD 06/04/19) Hx Liver Disease: No Hx Insulin Dependent Diabetes: No Hx Non-Insulin Dependent Diabetes: No Hx Thyroid Disease: No - Hematic Hx Anemia: Yes (concern for possible occult GI bleed) - Other Systems Hx Obesity: No - Additional Comments Anesthesia Medical History Comments: No hx anesthetic complications. Anesthesia consent obtained from daughter (NOK).
--- NOTE | 2019-06-05 11:06 | Post Operative Note ---
Pre-op diagnosis: anemia, gi bleed Post-op diagnosis: same Findings: EGD: hiatal hernia - mild gastritis - mild duodenitis Colon 12 mm polyp transverse, hot snare polypectomy - diverticulosis - internal hemorrhoids Procedure: EGD/colon Anesthesia: MAC Surgeon: PATTI MOORE Estimated blood loss: none Pathology: list Specimen disposition: to lab Condition: stable Disposition: floor
--- NOTE | 2019-06-05 11:16 | Progress Note ---
Assessment and Plan Severe renal failure, prerenal azotemia vs. 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 Medical renal disease. - Renally dose meds - Strict I&O monitoring - Avoid nephrotoxic agents - Patient is accepted at [facility], TTS schedule, can begin tomorrow on 06/06/19 - Patient can be discharged from renal standpoint Subjective Date of service: 06/05/19 Principal diagnosis: anemia Interval history: Patient off floor undergoing EGD and Colonoscopy Objective - Vital Signs Vital signs: Vital Signs - 12hr 06/04/19 06/05/19 06/05/19 23:47 04:05 08:57 Temperature 98.3 F 97.4 F L 97.3 F L Pulse Rate 97 H 89 82 Respiratory 24 20 20 Rate Blood Pressure 124/61 110/61 123/65 O2 Sat by Pulse 92 98 96 Oximetry 06/05/19 09:19 Temperature 97.3 F L Pulse Rate 82 Respiratory 20 Rate Blood Pressure 123/65 O2 Sat by Pulse 96 Oximetry - Lab 06/05/19 07:17 06/05/19 07:17 Most recent lab results Calcium 7.5 mg/dL (8.4-10.2) L 06/05/19 07:17 Calcium 7.6 mg/dL (8.4-10.2) L 06/05/19 07:17 Phosphorus 3.20 mg/dL (2.5-4.5) D 06/05/19 07:17 Magnesium 1.70 mg/dL (1.7-2.3) 06/02/19 06:00 Urine Creatinine 94.0 mg/dL (0.1-20.0) H 05/29/19 05:50 Urine Creatinine 97.3 mg/dL (0.1-20.0) H 05/29/19 05:50 Urine Sodium 51 mmol/L 05/29/19 05:50 Urine Total Protein 296 mg/dL (5-11.8) H 05/29/19 05:50 Medications & Allergies - Medications Allergies/Adverse Reactions: Allergies No Known Allergies Allergy (Verified 06/05/19 09:14) Home Medications: Home Medications Medication Instructions Recorded Confirmed Last Taken Type Meclizine [Antivert] 25 mg PO ONCE 06/02/19 06/02/19 Unknown History Naproxen Sodium 500 mg PO ONCE 06/02/19 06/02/19 Unknown History Pantoprazole [Protonix TAB] 40 mg PO ONCE 06/02/19 06/02/19 Unknown History Active Medications: Generic Name Dose Route Start Last Admin Trade Name Freq PRN Reason Stop Dose Admin Docusate Sodium 100 mg 05/29/19 23:45 06/04/19 21:22 Colace PO Not Given BID NIKOS Epoetin Carlos 10,000 unit 05/30/19 13:13 06/04/19 13:24 Procrit IV 10,000 unit BRADEN PRN Administration hemodialysis Heparin Sodium (Porcine) 5,000 unit 05/28/19 10:00 06/04/19 21:23 Heparin SUB-Q Not Given Q12HR NIKOS Sodium Chloride 1,000 mls @ 50 mls/hr 06/05/19 10:00 Nacl 0.9% 1000 Ml IV DIRECT NIKOS Miscellaneous 1 each 06/04/19 09:29 Pharmacy Consult (For Pt Fall) PO 06/04/19 09:30 ONCE ONE Protocol Ondansetron HCl 4 mg 05/28/19 06:12 Zofran IV Q8H PRN Nausea And Vomiting Pantoprazole Sodium 40 mg 06/03/19 16:00 06/04/19 10:47 Protonix PO Not Given QDAY NIKOS Polyethylene Glycol 17 gm 05/29/19 23:56 06/03/19 16:57 Miralax 3350 PO 17 gm QDAY PRN Administration Constipation Prednisone 60 mg 06/04/19 10:00 06/04/19 10:48 Deltasone PO Not Given QDAY NIKSO
[2019-06-05] MEDS: COLACE PO SCH ×2 (12:03→21:50)
[2019-06-05 12:14] LABS: HIV-1 Antibody Differentiation SEE SCANNED RESULT; HIV-2 Antibody Differentiation SEE SCANNED RESULT
[2019-06-05] MEDS: PROTONIX PO SCH (12:39)
[2019-06-05] MEDS: DELTASONE PO SCH (12:39)
--- NOTE | 2019-06-05 17:30 | Discharge Summary ---
Providers - Providers Date of Admission: 05/28/19 06:09 Date of discharge: 06/05/19 Attending physician: JELENA RAYMOND 05/28/19 06:01 Consult to Physician [CONS] Stat Comment: Consulting Provider: SADIQ IRVIN Physician Instructions: Reason For Exam: acute renal failure, hyperkalemia 05/28/19 12:05 Consult to Physician [CONS] Stat Comment: Consulting Provider: LORRAINE SCHWARTZ Physician Instructions: Reason For Exam: vascath for stat hd 05/31/19 13:21 Consult to Physician [CONS] Routine Comment: Consulting Provider: JOSE ARMANDO PUGA Physician Instructions: Reason For Exam: AMS 06/03/19 08:50 Consult to Physician [CONS] Routine Comment: Consulting Provider: PATTI MOORE Physician Instructions: Reason For Exam: positive FOBT, anemia 06/03/19 08:52 Consult to Case Management [CONS] Routine Services Needed at Discharge: Other Notified:: cm notified Comment:: outptatient dialysis placement Additional Physician Instructions: Address: [address] [place] [address] Consult to Physician [CONS] Routine Comment: Consulting Provider: LORRAINE SCHWARTZ Physician Instructions: Reason For Exam: permcath placement Primary care physician: ZACHARIAH OLIVAS Hospitalization Condition: Stable Hospital course: patient 79-year-old male presented with weakness nausea vomiting poor PO intake was found to have acute kidney injury. 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 Patient was started on prednisone is cyclophosphamide 1000 mg. Patient also scheduled for hemodialysis has a chair in [facility] on 1717. Patient also had anemia and since he was taking high doses of incidents but EGD and colonoscopy was done to evaluate G.I. bleeding. And it show mild gastritis do an -itis and colonoscopy showed internal hemorrhoids. Patient was stable for discharge of both renal and G.I. standpoint. Patient be discharged on steroids back sometimes three weeks cyclophosphamide and follow-up with nephrology. Patient also been told not to use NSAIDs anti-inflammatories. Also follow primary care and 7 to 10 days. Disposition: TO HOME OR SELFCARE - Discharge Diagnoses (1) Acute renal failure Status: Acute (2) Hyperkalemia Status: Resolved (3) Nausea and vomiting Status: Acute (4) Acute blood loss anemia Status: Acute Core Measure Documentation - Palliative Care Palliative Care/ Comfort Measures: Not Applicable - Core Measures Any of the following diagnoses?: none Exam - Constitutional Vitals: Temp Pulse Resp BP Pulse Ox 98.3 F 67 18 114/66 98 06/05/19 15:15 06/05/19 17:15 06/05/19 15:15 06/05/19 17:15 06/05/19 12:39 General appearance: Present: no acute distress, well-nourished - EENT Eyes: Present: PERRL ENT: hearing intact, clear oral mucosa - Neck Neck: Present: supple, normal ROM - Respiratory Respiratory effort: normal Respiratory: bilateral: CTA - Cardiovascular Heart Sounds: Present: S1 & S2. Absent: rub, click - Extremities Extremities: pulses symmetrical, No edema Peripheral Pulses: within normal limits - Abdominal General gastrointestinal: Present: soft, non-tender, non-distended, normal bowel sounds Male genitourinary: Present: normal - Integumentary Integumentary: Present: clear, warm, dry - Musculoskeletal Musculoskeletal: gait normal, strength equal bilaterally - Psychiatric Psychiatric: appropriate mood/affect, intact judgment & insight - Neurologic Neurologic: CNII-XII intact, moves all extremities Plan Activity: no restrictions Diet: renal Special Instructions: record daily BP diary [facility] [Referring] - 3-5 Days Forms: Accompanied Note Prescriptions: predniSONE [Deltasone] 60 mg PO QDAY #60 tablet Polyethylene Glycol 3350 [Miralax 3350] 17 gm PO QDAY PRN #7 powd.pack PRN Reason: Constipation Pantoprazole [Protonix TAB] 40 mg PO QDAY #30 tablet Pantoprazole [Protonix TAB] 40 mg PO ONCE #30
[2019-06-05] MEDS: PROCRIT IV PRN (18:15)
[2019-06-06 03:47] VITALS: BP 110/57
[2019-06-06 05:50] LABS: Basophils % (Auto) 0.1 % (0.0-1.8); Hematocrit 24.8 % (35.5-45.6); Hemoglobin 8.3 gm/dl (11.8-15.2); Lymphocytes # (Auto) 0.5 K/mm3 (1.2-5.4); Lymphocytes % (Auto) 9.3 % (13.4-35.0); Mean Corpuscular HGB Conc 33 % (32-34); Mean Corpuscular Volume 93 fl (84-94); Monocytes # (Auto) 0.3 K/mm3 (0.0-0.8); Platelet Count 158 K/mm3 (140-440); Red Blood Count 2.68 M/mm3 (3.65-5.03); Red Cell Distribution Width 16.9 % (13.2-15.2)
[2019-06-06 05:55] LABS: Calcium 7.4 mg/dL (8.4-10.2)
[2019-06-08 06:14] LABS: Abnormal Protein Band 1 1.5 g/dL; Albumin 1.5 g/dL (3.8-4.8); Gamma Globulin 2.1 g/dL (0.8-1.7)
== END 2019-06-06 10:00 | disposition home or self-care (01) | DRG 673 ==
LOC: ED 03:59 → 4A 06:09
PROVIDERS: ADMIT Internal Medicine; ATTEND Internal Medicine
PROC: 02H633Z Insertion of Infusion Device into Right Atrium, Percutaneous Approach (ICD-10-PCS; 2019-05-28)
PROC: B543ZZA Ultrasonography of Right Jugular Veins, Guidance (ICD-10-PCS; 2019-05-28)
PROC: B5181ZA Fluoroscopy of Superior Vena Cava using Low Osmolar Contrast, Guidance (ICD-10-PCS; 2019-05-28)
PROC: 5A1D70Z Performance of Urinary Filtration, Intermittent, Less than 6 Hours Per Day (ICD-10-PCS; 2019-05-28)
PROC: 30233N1 Transfusion of Nonautologous Red Blood Cells into Peripheral Vein, Percutaneous Approach (ICD-10-PCS; principal; 2019-05-29)
PROC: 5A1D70Z Performance of Urinary Filtration, Intermittent, Less than 6 Hours Per Day (ICD-10-PCS; 2019-05-29)
PROC: 5A1D70Z Performance of Urinary Filtration, Intermittent, Less than 6 Hours Per Day (ICD-10-PCS; 2019-05-30)
PROC: 0TB13ZX Excision of Left Kidney, Percutaneous Approach, Diagnostic (ICD-10-PCS; 2019-05-31)
PROC: 5A1D70Z Performance of Urinary Filtration, Intermittent, Less than 6 Hours Per Day (ICD-10-PCS; 2019-06-01)
PROC: 0JH63XZ Insertion of Tunneled Vascular Access Device into Chest Subcutaneous Tissue and Fascia, Percutaneous Approach (ICD-10-PCS; 2019-06-03)
PROC: 02PAX3Z Removal of Infusion Device from Heart, External Approach (ICD-10-PCS; 2019-06-03)
PROC: 02H633Z Insertion of Infusion Device into Right Atrium, Percutaneous Approach (ICD-10-PCS; 2019-06-03)
PROC: B5181ZA Fluoroscopy of Superior Vena Cava using Low Osmolar Contrast, Guidance (ICD-10-PCS; 2019-06-03)
PROC: 5A1D70Z Performance of Urinary Filtration, Intermittent, Less than 6 Hours Per Day (ICD-10-PCS; 2019-06-04)
PROC: 0DJ08ZZ Inspection of Upper Intestinal Tract, Via Natural or Artificial Opening Endoscopic (ICD-10-PCS; 2019-06-05)
PROC: 0DBL8ZZ Excision of Transverse Colon, Via Natural or Artificial Opening Endoscopic (ICD-10-PCS; 2019-06-05)
PROC: 5A1D70Z Performance of Urinary Filtration, Intermittent, Less than 6 Hours Per Day (ICD-10-PCS; 2019-06-05)
DX: N17.9 Acute kidney failure, unspecified (principal); E43 Unspecified severe protein-calorie malnutrition; K29.71 Gastritis, unspecified, with bleeding; K29.81 Duodenitis with bleeding; K57.91 Diverticulosis of intestine, part unspecified, without perforation or abscess with bleeding; E87.1 Hypo-osmolality and hyponatremia; D62 Acute posthemorrhagic anemia; E87.5 Hyperkalemia; F03.90 Unspecified dementia, unspecified severity, without behavioral disturbance, psychotic disturbance, mood disturbance, and anxiety; K21.9 Gastro-esophageal reflux disease without esophagitis; K44.9 Diaphragmatic hernia without obstruction or gangrene; K64.8 Other hemorrhoids; F17.210 Nicotine dependence, cigarettes, uncomplicated; N18.9 Chronic kidney disease, unspecified; M19.90 Unspecified osteoarthritis, unspecified site; Z68.25 Body mass index [BMI] 25.0-25.9, adult
CPT/HCPCS: 36415; 36430; 36556; 36558; 71045; 76770; 77001; 77012; 80048; 80053; 80061; 80074; 80076; 81001; 82270; 82550; 82553; 82570; 82728; 82962; 83520; 83615; 83690; 83735; 84100; 84156; 84165; 84300; 84484; 85007; 85014; 85018; 85025; 85610; 85730; 86021; 86038; 86160; 86689; 86706; 86803; 86850; 86900; 86901; 86920; 87086; 88305; 89050; 93005; 93010; 93970; 94644; 96361; 96374; 96375; 99406; G0378; C1750; C1752; C9113; J0610; J0690; J0885; J1170; J1644; J1815; J2250; J2405; J2704; J3010; J7030; J7040; J7050; J7070; J7512; P9016

== ENCOUNTER 2019-07-29 05:46 | Inpatient (IN) | payer MEDICARE ==
[2019-07-29] MEDS ORDERED: NITROGLYCERIN 2% OINT 1 GM TP ONE (06:09)
--- NOTE | 2019-07-29 06:14 | Emergency Department Report ---
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 Patient received dialysis Monday, Monday, Monday. He was on the way to dialysis today but became too short of breath and then came to the ER for evaluation. Patient initially hypoxic with respiratory distress that improved with the medication of 4 L nasal cannula. Patient denies primary respiratory disorder or home oxygen use. No pain reported. Patient has minimal urine output since starting dialysis and is currently on Lasix. He denies current fluid restriction. Pt is compliant with current meds. Due for am meds after scheduled dialysis. Deliver Driver: Dr Hester - Related Data Home Medications Medication Instructions Recorded Confirmed Last Taken Amlodipine Besylate 5 mg PO DAILY 07/29/19 07/29/19 Unknown Furosemide 80 mg PO BID 07/29/19 07/29/19 Unknown Vitamin D3 2,000 units PO DAILY 07/29/19 07/29/19 Unknown Vitamin D3 50,000 units PO QWEEK 07/29/19 07/29/19 Unknown Previous Rx's Medication Instructions Recorded Last Taken Type Pantoprazole [Protonix TAB] 40 mg PO ONCE #30 06/05/19 Unknown Rx predniSONE [Deltasone] 60 mg PO QDAY #60 tablet 06/05/19 Unknown Rx Allergies Allergy/AdvReac Type Severity Reaction Status Date / Time No Known Allergies Allergy Verified 06/05/19 09:14 ED Review of Systems ROS: Stated complaint: KISHAN Other details as noted in HPI Comment: All other systems reviewed and negative ED Past Medical Hx - Past Medical History Previous Medical History?: Yes Hx Renal Disease: Yes (anti-glomerular basement membranerenal disease, dialysis) - Surgical History Past Surgical History?: No - Social History Smoking Status: Current Some Day Smoker Substance Use Type: None - Medications Home Medications: Home Medications Medication Instructions Recorded Confirmed Last Taken Type Pantoprazole [Protonix TAB] 40 mg PO ONCE #30 06/05/19 07/29/19 Unknown Rx predniSONE [Deltasone] 60 mg PO QDAY #60 tablet 06/05/19 07/29/19 Unknown Rx Amlodipine Besylate 5 mg PO DAILY 07/29/19 07/29/19 Unknown History Furosemide 80 mg PO BID 07/29/19 07/29/19 Unknown History Vitamin D3 2,000 units PO DAILY 07/29/19 07/29/19 Unknown History Vitamin D3 50,000 units PO QWEEK 07/29/19 07/29/19 Unknown History ED Physical Exam - General Limitations: No Limitations - Other Other exam information: General: No acute distress Head: Atraumatic Eyes: normal appearance ENT: Moist mucous membranes Neck: Normal appearance, no midline tenderness Chest: Clear to auscultation bilaterally, bilateral crackles, speaking in complete sentences on 4 L nasal cannula without distress CV: Regular rate and rhythm Abdomen: Soft, normal bowel sounds, nontender, nondistended, no rebound or guarding Back: Normal inspection Extremity: Normal inspection infection, full range of motion, bilateral 1-2+ pitting lower extremity edema and no leg asymmetry. No calf tenderness Neuro: Alert O x 3, no facial asymmetry, speech clear, no gross motor sensory deficit Psych: Appropriate behavior Skin: No rash ED Course Vital Signs 07/29/19 07/29/19 07/29/19 06:00 06:21 08:50 Temperature 97.9 F 98.1 F Pulse Rate 109 H 93 H Respiratory 16 14 Rate Blood Pressure 174/103 159/89 Blood Pressure 151/83 [Right] O2 Sat by Pulse 94 97 Oximetry - Consultations Consultation #1: 07/29/19 08:[address] Resendiz called, awaiting call back 07/29/19 09:01 Dr Resendiz called back at this time, will manage pt's dialysis ED Medical Decision Making - Lab Data Result diagrams: 07/29/19 07:00 07/29/19 07:00 - EKG Data -: EKG Interpreted by Me (svetlana) EKG shows normal: sinus rhythm, ST-T waves (no stemi, no peak t waves) Rate: tachycardia (110) - EKG Data When compared to previous EKG there are: previous EKG unavailable - Radiology Data Radiology results: report reviewed CHEST 1 VIEW 07/29/2019 6:10 AM INDICATION / CLINICAL INFORMATION: Shortness of breath. COMPARISON: One view of the chest from 05/28/2019. FINDINGS: SUPPORT DEVICES: A right internal jugular vein PermCath terminates over the distal SVC. HEART / MEDIASTINUM: No significant abnormality. LUNGS / PLEURA: There are generalized bilateral pulmonary opacities that are most significant along the right lung base. Small bilateral pleural effusions are seen without a pneumothorax. ADDITIONAL FINDINGS: No significant additional findings. IMPRESSION: 1. Bilateral pulmonary opacities may represent pneumonia or edema. Please correlate with the clinical findings. 2. Small pleural effusions. - Medical Decision Making + chf/volume overload due for dialysis today potassium normal bp improved with ntg paste o2 sat and resp status improved with 4 L NC o2 will admit to hospitalist service d/w Hillary nephro consulted to manage dialysis - Differential Diagnosis chf, volume overload Critical Care Time: No Critical care attestation.: If time is entered above; I have spent that time in minutes in the direct care o f this critically ill patient, excluding procedure time. ED Disposition Clinical Impression: ESRD needing dialysis, Pulmonary edema, HTN (hypertension) Disposition: -09 OP ADMIT IP TO THIS HOSP Is pt being admited?: Yes Condition: Stable Instructions: Hypertension (ED) Time of Disposition: 08:50 (Dr Thornton/dk)
--- NOTE | 2019-07-29 06:37 | XRay Report ---
CHEST 1 VIEW 07/29/2019 6:10 AM INDICATION / CLINICAL INFORMATION: Shortness of breath. COMPARISON: One view of the chest from 05/28/2019. FINDINGS: SUPPORT DEVICES: A right internal jugular vein PermCath terminates over the distal SVC. HEART / MEDIASTINUM: No significant abnormality. LUNGS / PLEURA: There are generalized bilateral pulmonary opacities that are most significant along t he right lung base. Small bilateral pleural effusions are seen without a pneumothorax. ADDITIONAL FINDINGS: No significant additional findings. IMPRESSION: 1. Bilateral pulmonary opacities may represent pneumonia or edema. Please correlate with the clinical findings. 2. Small pleural effusions. Signer Name: Luis Altamirano MD Signed: 07/29/2019 6:33 AM Workstation Name: [id number]
[2019-07-29 08:09] LABS: Mean Corpuscular HGB Conc 31 % (32-34); Mean Corpuscular Volume 97 fl (84-94); Platelet Count 171 K/mm3 (140-440); Red Blood Count 3.86 M/mm3 (3.65-5.03)
[2019-07-29 08:13] LABS: Hematocrit 37.2 % (35.5-45.6); Hemoglobin 11.4 gm/dl (11.8-15.2); Red Cell Distribution Width 21.5 % (13.2-15.2)
[2019-07-29] MEDS ORDERED: SODIUM CHLORIDE 0.9% 100 ML IV PRN (09:17)
[2019-07-29 12:00] LABS: Hepatitis C Virus Antibody Non-Reactive (NonReactive)
--- NOTE | 2019-07-29 14:04 | Consultation ---
History of Present Illness - Reason for Consult acute renal failure - History of Present Illness This is a 79-year-old -[place] male with recent history of severe acute kidney injury apparently in the setting of anti-GBM disease per previous nephrology note, with plans to initially start on Cytoxan and prednisone therapy, who has been on chronic hemodialysis since the recent acute kidney injury and has switched over to our dialysis unit at [facility], who presents to the emergency department secondary to shortness of breath. He is on a Monday outpatient HD schedule. He has a permacath through which she gets dialyzed. He mentions that he had increased his sodium intake over the weekend which likely caused his shortness of breath this morning which prevents her from going to the hemodialysis unit. Nephrology is being consult this time for chronic hemodialysis needs. He was seen in our office by my colleague Dr. Hester earlier this month. Past History Past Medical History: GERD, hypertension Past Surgical History: No surgical history Social history: no significant social history Family history: hypertension Medications and Allergies Allergies Allergy/AdvReac Type Severity Reaction Status Date / Time No Known Allergies Allergy Verified 06/05/19 09:14 Home Medications Medication Instructions Recorded Confirmed Last Taken Type Pantoprazole [Protonix TAB] 40 mg PO ONCE #30 06/05/19 07/29/19 Unknown Rx predniSONE [Deltasone] 60 mg PO QDAY #60 tablet 06/05/19 07/29/19 Unknown Rx Amlodipine Besylate 5 mg PO DAILY 07/29/19 07/29/19 Unknown History Furosemide 80 mg PO BID 07/29/19 07/29/19 Unknown History Vitamin D3 2,000 units PO DAILY 07/29/19 07/29/19 Unknown History Vitamin D3 50,000 units PO QWEEK 07/29/19 07/29/19 Unknown History Active Meds: Active Medications Sodium Chloride (Nacl 0.9%) 100 mls @ 999 mls/hr IV BRADEN PRN PRN Reason: Hypotension Review of Systems Constitutional: fatigue, weakness Respiratory: shortness of breath Exam - Vital Signs Vital signs: Vital Signs Temp Pulse Resp BP Pulse Ox 97.9 F 109 H 16 174/103 94 07/29/19 06:00 07/29/19 06:00 07/29/19 06:00 07/29/19 06:00 07/29/19 06:00 - General Appearance General appearance: well-developed, well-nourished, appears stated age EENT: ATNC, PERRL Neck: Present: neck supple, trachea midline Respiratory: Clear to Ascultation, Normal Exam Heart: regular, S1S2 Gastrointestinal: Present: normal, normoactive bowel sounds Integumentary: no rash, warm and dry Neurologic: no focal deficit, alert and oriented x3 Musculoskeletal: Present: deferred Psychiatric: mood/affect appropriate, cooperative Results - Lab Results 07/29/19 07:00 07/29/19 07:00 Most recent lab results Calcium 9.0 mg/dL (8.4-10.2) 07/29/19 07:00 Assessment and Plan - Patient Problems (1) Acute renal failure Current Visit: No Status: Acute Plan to address problem: Have placed orders for inpatient hemodialysis on a Monday schedule while inpatient. (2) HTN (hypertension) Current Visit: Yes Status: Chronic Plan to address problem: We'll continue to monitor on current regimen. (3) Pulmonary edema Current Visit: Yes Status: Acute Plan to address problem: Volume control with hemodialysis. (4) Nausea and vomiting Current Visit: No Status: Acute Plan to address problem: Symptom management per primary attending.
--- NOTE | 2019-07-29 15:01 | History and Physical Report ---
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 He was using accessory muscles upon arrival to ED and placed on 4 liters of O2. Pulse ox was not measured/recorded prior to initiation of O2. Over the weekend, He admits to eating Lemon pepper wings which has a copious amount of salt overload. He denies chest pains, new cough, fevers or chills. He does have sinsus drainage without severe headaches. PMH: as hpi PSH: HD access lines SH: +tob/denies etoh or drug abuse FH: hypertension ROS: Constitutional: denies: fever ENT: denies: throat or neck pain Respiratory: +nonproductive cough, +shortness of breath Cardiovascular: denies: chest pain Endocrine: denies unexplained weight loss or gain Gastrointestinal: denies: abdominal pain, nausea Genitourinary: denies: dysuria Rectal: denies no incontinence, no bleeding, no itching, no discharge Musculoskeletal: denies swelling, myaglia, muscle weakness Skin: denies: rash Neurological: denies: headache Hematological/Lymphatic: denies: easy bleeding or easy bruising Allergic/Immunologic: no urticaria, no allergic rhinitis, no anaphylaxis Psych: denies sadness or hopelessness, SI/HI Past History Past Medical History: GERD, hypertension Past Surgical History: No surgical history Social history: no significant social history Family history: hypertension Medications and Allergies Allergies Allergy/AdvReac Type Severity Reaction Status Date / Time No Known Allergies Allergy Verified 06/05/19 09:14 Home Medications Medication Instructions Recorded Confirmed Last Taken Type Pantoprazole [Protonix TAB] 40 mg PO ONCE #30 06/05/19 07/29/19 Unknown Rx predniSONE [Deltasone] 60 mg PO QDAY #60 tablet 06/05/19 07/29/19 Unknown Rx Amlodipine Besylate 5 mg PO DAILY 07/29/19 07/29/19 Unknown History Furosemide 80 mg PO BID 07/29/19 07/29/19 Unknown History Vitamin D3 2,000 units PO DAILY 07/29/19 07/29/19 Unknown History Vitamin D3 50,000 units PO QWEEK 07/29/19 07/29/19 Unknown History Active Meds: Active Medications Sodium Chloride (Nacl 0.9%) 100 mls @ 999 mls/hr IV BRADEN PRN PRN Reason: Hypotension Exam - Physical Exam Narrative exam: Gen: thin frail, chronic disable appearing, moderate increase accessory muscles, Awake, Alert, Orientated HEENT: NCAT, EOMI, PERRL, OP Clear, frontal and maxillary sinus tenderness, enlarged turbinates Neck: supple, no adenopathy, no thyromegaly, no JVD CVS/Heart: RRR, normal S1S2, pulses present bilaterally Chest/Lungs: diminished with bibasilar crackles Symmetrical chest expansion, good air entry bilaterally GI/Abdomen: soft, NTND, good bowel sounds, no guarding or rebound /Bladder: no suprapubic tenderness, no CVA or paraspinal tenderness Extermity/Skin: 2+ble pitting edema, no obvious rash MSK: FROM x 4 Neuro: CN 2-12 grossly intact, no new focal deficits Psych: calm - Constitutional Vitals: Temp Pulse Resp BP Pulse Ox 97.7 F 92 H 18 151/82 91 07/29/19 11:08 07/29/19 11:08 07/29/19 11:08 07/29/19 11:08 07/29/19 11:08 Results - Labs CBC & Chem 7: 07/29/19 07:00 07/29/19 07:00 Labs: Laboratory Last Values WBC 9.0 K/mm3 (4.5-11.0) 07/29/19 07:00 RBC 3.86 M/mm3 (3.65-5.03) 07/29/19 07:00 Hgb 11.4 gm/dl (11.8-15.2) L 07/29/19 07:00 Hct 37.2 % (35.5-45.6) 07/29/19 07:00 MCV 97 fl (84-94) H 07/29/19 07:00 MCH 29 pg (28-32) 07/29/19 07:00 MCHC 31 % (32-34) L 07/29/19 07:00 RDW 21.5 % (13.2-15.2) H 07/29/19 07:00 Plt Count 171 K/mm3 (140-440) 07/29/19 07:00 Lymph % (Auto) Senior Writer 07/29/19 07:00 Schuyler % (Auto) Senior Writer 07/29/19 07:00 Eos % (Auto) Senior Writer 07/29/19 07:00 Baso % (Auto) Senior Writer 07/29/19 07:00 Lymph # Senior Writer 07/29/19 07:00 Schuyler # Senior Writer 07/29/19 07:00 Eos # Senior Writer 07/29/19 07:00 Baso # Senior Writer 07/29/19 07:00 Seg Neutrophils % Senior Writer 07/29/19 07:00 Seg Neutrophils # Senior Writer 07/29/19 07:00 Sodium 140 mmol/L (137-145) 07/29/19 07:00 Potassium 3.5 mmol/L (3.6-5.0) L 07/29/19 07:00 Chloride 99.8 mmol/L (98-107) 07/29/19 07:00 Carbon Dioxide 25 mmol/L (22-30) 07/29/19 07:00 Anion Gap 19 mmol/L 07/29/19 07:00 BUN 17 mg/dL (9-20) 07/29/19 07:00 Creatinine 7.8 mg/dL (0.8-1.5) H 07/29/19 07:00 Estimated GFR 8 ml/min 07/29/19 07:00 BUN/Creatinine Ratio 2 % 07/29/19 07:00 Glucose 121 mg/dL (75-100) H 07/29/19 07:00 Calcium 9.0 mg/dL (8.4-10.2) 07/29/19 07:00 NT-Pro-B Natriuret Pep > 53184 pg/mL (0-900) H 07/29/19 07:00 Hepatitis A IgM Ab Non-reactive (NonReactive) 07/29/19 07:00 Hep Bs Antigen Indeterminate (Negative) 07/29/19 07:00 Hep B Core IgM Ab Non-reactive (NonReactive) 07/29/19 07:00 Hepatitis C Antibody Non-reactive (NonReactive) 07/29/19 07:00 Assessment and Plan Assessment and plan: Patient is a 79 yo man with a history of oliguirc ESRD on HD MWF, 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 He was using accessory muscles upon arrival to ED and placed on 4 liters of O2. Pulse ox was not measured/recorded prior to initiation of O2. Over the weekend, He admits to eating Lemon pepper wings which has a copious amount of salt overload. He denies chest pains, new cough, fevers or chills. He does have sinsus drainage without severe headaches. * pCXR IMPRESSION: 1. Bilateral pulmonary opacities may represent pneumonia or edema. Please correlate with the clinical findings. 2. Small pleural effusions. Acute hypoxic respiratory failure due to acute pulmonary edema: treat with supplemental O2, Acute flash pulmonary edema: diuresis via Ultrafiltration in HD, check ECHO, tsh, troponin ESRD on hemodialysis: consult Feeder Catcher, Dr. Olea for HD Goodpasture Nephritic syndrome aka Anti-GBM: continue steroids, consult Nephrology Sinusitis: treat with Azithromycin, claritin and flonase Mild hypokalemia: repeat in AM and can be repleted via HD Tobacco dependency: reimbursement counselor on stopping 3 minutes preventative health screening 15 minutes Advance care planning 30 minutes, full code DVT ppx sq heparin d/w daughter Magdaleno at bedside.
[2019-07-29] MEDS ORDERED: METOCLOPRAMIDE 10 MG/2 ML INJ IV PRN (15:10)
[2019-07-29] MEDS ORDERED: ACETAMINOPHEN 325 MG TAB PO PRN (15:10)
[2019-07-29] MEDS ORDERED: MELATONIN 5 MG TAB PO PRN (15:11)
[2019-07-29] MEDS ORDERED: AZITHROMYCIN 250 MG TAB PO ONE (16:00)
[2019-07-29] MEDS: FUROSEMIDE 40 MG TAB PO SCH (19:51)
[2019-07-29] MEDS: LORATADINE (NF) 10 MG TAB PO SCH (19:51)
[2019-07-29] MEDS: FLUTICASONE PROPIONATE NASAL SPRAY 16 GM NS SCH (19:51)
[2019-07-29 20:20] LABS: Chol/HDL Ratio 2.54 %
[2019-07-29] MEDS ORDERED: NON-FORMULARY EACH (Furosemide 80 MG) PO SCH (22:00)
[2019-07-30 05:34] LABS: Hematocrit 33.3 % (35.5-45.6); Hemoglobin 10.5 gm/dl (11.8-15.2); Mean Corpuscular HGB Conc 32 % (32-34); Mean Corpuscular Volume 92 fl (84-94); Platelet Count 175 K/mm3 (140-440); Red Blood Count 3.61 M/mm3 (3.65-5.03)
[2019-07-30 05:55] LABS: Albumin 2.4 g/dL (3.9-5); Calcium 8.2 mg/dL (8.4-10.2)
[2019-07-30 06:00] LABS: Red Cell Distribution Width 21.4 % (13.2-15.2)
[2019-07-30] MEDS: FUROSEMIDE 40 MG TAB PO SCH ×2 (06:08→17:35)
--- NOTE | 2019-07-30 09:22 | Progress Note ---
Assessment and Plan - Patient Problems (1) Acute renal failure Current Visit: No Status: Acute Plan to address problem: Have placed orders for inpatient hemodialysis on a Monday schedule while inpatient. From nephrology standpoint patient is stable for discharge. We are pending the echocardiogram at this time. (2) HTN (hypertension) Current Visit: Yes Status: Chronic Plan to address problem: We'll continue to monitor on current regimen. (3) Pulmonary edema Current Visit: Yes Status: Acute Plan to address problem: Volume control with hemodialysis. (4) Nausea and vomiting Current Visit: No Status: Acute Plan to address problem: Symptom management per primary attending. Subjective Date of service: 07/30/19 Interval history: No acute issues overnight. Patient was off the floor early this morning for an echocardiogram. Pending results this time. He tolerated hemodialysis well yesterday without any acute issues. His overall respiratory status is improving since hemodialysis yesterday. Objective - Vital Signs Vital signs: Vital Signs - 12hr 07/29/19 07/30/19 07/30/19 23:43 04:28 07:38 Temperature 97.8 F 98.0 F 98.3 F Pulse Rate 98 H 93 H 94 H Respiratory 18 18 20 Rate Blood Pressure 158/79 139/68 156/83 O2 Sat by Pulse 93 97 91 Oximetry 07/30/19 08:00 Temperature Pulse Rate Respiratory Rate Blood Pressure O2 Sat by Pulse 94 Oximetry - General Appearance General appearance: well-developed, well-nourished, appears stated age EENT: ATNC, PERRL Neck: no JVD, no thyromegaly Respiratory: Present: Clear to Ascultation Cardiology: regular, S1S2 Gastrointestinal: normal, normoactive bowel sounds Integumentary: no rash, warm and dry Neurologic: no focal deficit, alert and oriented x3 Musculoskeletal: deferred Psychiatric: mood/affect appropriate, cooperative - Lab 07/30/19 05:02 07/30/19 05:02 Most recent lab results Calcium 8.2 mg/dL (8.4-10.2) L 07/30/19 05:02 Magnesium 1.90 mg/dL (1.7-2.3) 07/30/19 05:02 - Imaging Chest x-ray: report reviewed - Allied health notes Allied health notes reviewed: nursing Medications & Allergies - Medications Allergies/Adverse Reactions: Allergies No Known Allergies Allergy (Verified 06/05/19 09:14) Home Medications: Home Medications Medication Instructions Recorded Confirmed Last Taken Type Pantoprazole [Protonix TAB] 40 mg PO ONCE #30 06/05/19 07/29/19 Unknown Rx predniSONE [Deltasone] 60 mg PO QDAY #60 tablet 06/05/19 07/29/19 Unknown Rx Amlodipine Besylate 5 mg PO DAILY 07/29/19 07/29/19 Unknown History Furosemide 80 mg PO BID 07/29/19 07/29/19 Unknown History Vitamin D3 2,000 units PO DAILY 07/29/19 07/29/19 Unknown History Vitamin D3 50,000 units PO QWEEK 07/29/19 07/29/19 Unknown History Active Medications: Generic Name Dose Route Start Last Admin Trade Name Freq PRN Reason Stop Dose Admin Acetaminophen 650 mg 07/29/19 15:10 Tylenol PO Q6H PRN Non Cardiac Pain or Temp>100.5 Amlodipine Besylate 5 mg 07/30/19 10:00 Amlodipine PO QDAY NIKOS Azithromycin 250 mg 07/30/19 10:00 Zithromax PO QDAY NIKOS Ergocalciferol 50,000 unit 08/05/19 10:00 Vitamin D2 PO Mo NIKOS Fluticasone Propionate 100 mcg 07/29/19 16:00 07/29/19 19:51 Flonase NS 100 mcg QDAY NIKOS Administration Furosemide 80 mg 07/29/19 18:00 07/30/19 06:08 Lasix PO 80 mg 0600,1800 NIKOS Administration Heparin Sodium (Porcine) 5,000 unit 07/30/19 22:00 Heparin SUB-Q Q12HR NIKOS Sodium Chloride 100 mls @ 999 mls/hr 07/29/19 09:17 Nacl 0.9% IV BRADEN PRN Hypotension Loratadine 10 mg 07/29/19 16:00 07/29/19 19:51 Claritin PO 10 mg QDAY NIKOS Administration Melatonin 5 mg 07/29/19 15:11 Melatonin PO QHS PRN Sleep Metoclopramide HCl 10 mg 07/29/19 15:10 Reglan IV Q8H PRN Nausea And Vomiting Pantoprazole Sodium 40 mg 07/30/19 10:00 Protonix PO QDAY NIKOS Prednisone 60 mg 07/30/19 10:00 Deltasone PO QDAY NIKOS
[2019-07-30] MEDS: LORATADINE (NF) 10 MG TAB PO SCH (09:35)
[2019-07-30] MEDS: FLUTICASONE PROPIONATE NASAL SPRAY 16 GM NS SCH (09:35)
[2019-07-30] MEDS ORDERED: amLODIPine 5 MG TAB PO SCH (10:00)
[2019-07-30] MEDS ORDERED: NON-FORMULARY EACH (Amlodipine Besylate 5 MG) PO SCH (10:00)
[2019-07-30] MEDS ORDERED: PANTOPRAZOLE 40 MG TAB PO SCH (10:00)
[2019-07-30] MEDS ORDERED: predniSONE 20 MG TAB PO SCH (10:00)
[2019-07-30] MEDS ORDERED: AZITHROMYCIN 250 MG TAB PO SCH (10:00)
[2019-07-30 14:37] LABS: Hepatitis B Surface Antigen Nonreactive (Negative)
--- NOTE | 2019-07-30 16:18 | Discharge Summary ---
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 He was using accessory muscles upon arrival to ED and placed on 4 liters of O2. Pulse ox was not measured/recorded prior to initiation of O2. Over the weekend, He admits to eating Lemon pepper wings which has a copious amount of salt overload. He denies chest pains, new cough, fevers or chills. He does have sinsus drainage without severe headaches. * pCXR IMPRESSION: 1. Bilateral pulmonary opacities may represent pneumonia or edema. Please correlate with the clinical findings. 2. Small pleural effusions. Discharge diagnosis; Acute hypoxic respiratory failure due to acute pulmonary edema: treat with supplemental O2 and HD Acute flash pulmonary edema: diuresis via Ultrafiltration in HD, check ECHO, tsh, troponin ESRD on hemodialysis: consult Printing Machine Operator Tape Rules, Dr. Olea for HD Goodpasture Nephritic syndrome aka Anti-GBM: continue steroids, consult Nephrology Sinusitis: treat with Azithromycin, claritin and flonase Mild hypokalemia: repleted via HD Tobacco dependency: child and family counselor on stopping 3 minutes Mild systolic CHF Ef 45-50% - likely acute on chronic, outpt f/u Disposition: DC-01 TO HOME OR SELFCARE Time spent for discharge: 34 minutes Core Measure Documentation - Palliative Care Palliative Care/ Comfort Measures: Not Applicable - Core Measures Any of the following diagnoses?: none Exam - Constitutional Vitals: Temp Pulse Resp BP Pulse Ox 98.3 F 94 H 20 156/83 94 07/30/19 07:38 07/30/19 09:34 07/30/19 07:38 07/30/19 09:34 07/30/19 08:00 General appearance: Present: no acute distress, well-nourished - EENT Eyes: Present: PERRL ENT: hearing intact, clear oral mucosa - Neck Neck: Present: supple, normal ROM - Respiratory Respiratory effort: normal Respiratory: bilateral: CTA - Cardiovascular Heart Sounds: Present: S1 & S2. Absent: rub, click - Extremities Extremities: pulses symmetrical, No edema Peripheral Pulses: within normal limits - Abdominal General gastrointestinal: Present: soft, non-tender, non-distended, normal bowel sounds - Integumentary Integumentary: Present: clear, warm, dry - Musculoskeletal Musculoskeletal: gait normal, strength equal bilaterally - Psychiatric Psychiatric: appropriate mood/affect, intact judgment & insight - Neurologic Neurologic: CNII-XII intact, moves all extremities Plan Activity: advance as tolerated Weight Bearing Status: Weight Bear as Tolerated Diet: renal Special Instructions: restrict fluid intake to (1.2L per day) Follow up with: PRIMARY CARE, [Primary Care Provider] - 3-5 Days Forms: Accompanied Note Prescriptions: amLODIPine 10 mg PO QDAY #30 tablet Azithromycin [Zithromax TAB] 250 mg PO QDAY #5 tablet
[2019-07-30 19:58] VITALS: BP 158/87
[2019-07-30] MEDS ORDERED: HEPARIN 5,000 UNIT/1 ML VIAL SUB-Q SCH (22:00)
[2019-08-05] MEDS ORDERED: ERGOCALCIFEROL (VIT D2) 50,000 UNIT CAP PO SCH (10:00)
[2019-08-05] MEDS ORDERED: VITAMIN D3 50000 UNIT PO SCH (10:00)
== END 2019-07-30 18:50 | disposition home or self-care (01) | DRG 189 ==
LOC: ED 05:46 → 4A 08:50
PROVIDERS: ADMIT Internal Medicine; ATTEND Internal Medicine
PROC: 5A1D70Z Performance of Urinary Filtration, Intermittent, Less than 6 Hours Per Day (ICD-10-PCS; principal; 2019-07-29)
DX: J96.01 Acute respiratory failure with hypoxia (principal); N18.6 End stage renal disease; J81.0 Acute pulmonary edema; I50.23 Acute on chronic systolic (congestive) heart failure; N17.9 Acute kidney failure, unspecified; E87.6 Hypokalemia; J32.9 Chronic sinusitis, unspecified; F17.200 Nicotine dependence, unspecified, uncomplicated; M19.90 Unspecified osteoarthritis, unspecified site; N05.8 Unspecified nephritic syndrome with other morphologic changes; K21.9 Gastro-esophageal reflux disease without esophagitis; Z71.6 Tobacco abuse counseling; Z82.49 Family history of ischemic heart disease and other diseases of the circulatory system; Z99.2 Dependence on renal dialysis; Z79.899 Other long term (current) drug therapy
CPT/HCPCS: 36415; 71045; 80048; 80053; 80061; 80074; 83735; 83880; 84443; 84484; 85025; 85027; 93005; 93010; 93306; 94760; 99406; G0378; J7512

== ENCOUNTER 2019-08-09 06:04 | Observation (INO) | payer MEDICARE ==
[2019-08-10 08:09] VITALS: BP 137/72
== END 2019-08-10 14:00 | disposition home or self-care (01) ==
LOC: ED 06:04 → 2B-ACE 08:19 → INTOOBSV 08:19
PROVIDERS: ADMIT Internal Medicine; ATTEND Internal Medicine
DX: J96.01 Acute respiratory failure with hypoxia (principal); J81.0 Acute pulmonary edema; R65.10 Systemic inflammatory response syndrome (SIRS) of non-infectious origin without acute organ dysfunction; I13.2 Hypertensive heart and chronic kidney disease with heart failure and with stage 5 chronic kidney disease, or end stage renal disease; I50.9 Heart failure, unspecified; N18.6 End stage renal disease; E11.22 Type 2 diabetes mellitus with diabetic chronic kidney disease; F17.200 Nicotine dependence, unspecified, uncomplicated; Z99.2 Dependence on renal dialysis
CPT/HCPCS: 36415; 71045; 80048; 83880; 84100; 85025; 85027; 86850; 86900; 86901; 87040; 87116; 96365; 96366; 96368; 99291; G0378; J0456; J0696; J3246; J7050; J7512; G0257

== ENCOUNTER 2020-05-20 06:35 | Day surgery (SDC) | payer MEDICARE ==
[~2020-05-20 06:35] MED LIST: ACETAMINOPHEN 500 MG TAB PO SCH; SODIUM CHLORIDE 0.9% 1000 ML 1,000 ML IV SCH
[2020-05-20 07:13] LABS: Hematocrit 30.6 % (35.5-45.6); Hemoglobin 10.1 gm/dl (11.8-15.2); Mean Corpuscular HGB Conc 33 % (32-34); Mean Corpuscular Volume 106 fl (84-94); Platelet Count 106 K/mm3 (140-440); Red Cell Distribution Width 15.2 % (13.2-15.2)
--- NOTE | 2020-05-20 07:22 | Anesthesia Consultation ---
Anesthesia Consult and Med Hx Date of service: 05/20/20 - Airway Anesthetic Teeth Evaluation: Good ROM Head & Neck: Adequate Mental/Hyoid Distance: Adequate Mallampati Class: Class II Intubation Access Assessment: Good - Pulmonary Exam CTA: Yes - Cardiac Exam Cardiac Exam: RRR - Pre-Operative Health Status ASA Pre-Surgery Classification: ASA3 Proposed Anesthetic Plan: General - Pulmonary Hx Smoking: Yes (STOPPED 2019- SMOKED X 25 YRS) Hx Asthma: No SOB: Yes (HX SOB) COPD: No Hx Pneumonia: No Hx Sleep Apnea: No (VIPIN PRE SCREEN - HIGH RISK.) - Cardiovascular System Hx Hypertension: Yes Hx Heart Attack/AMI: No Hx Pacemaker: No Hx Internal Defibrillator: No Hx Heart Murmur: No - Central Nervous System Hx Seizures: No Hx Back Pain: No Hx Psychiatric Problems: No - Endocrine 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
--- NOTE | 2020-05-20 07:23 | Anesthesia Day of Surgery ---
Anesthesia Day of Surgery - Day of Surgery Patient Examined: Yes Patient H&P Reviewed: Yes Patient is NPO: Yes
[2020-05-20 07:34] LABS: Calcium 8.7 mg/dL (8.4-10.2)
[2020-05-20] MEDS ORDERED: fentaNYL 100 MCG/2 ML INJ IV PRN (07:47)
[2020-05-20] MEDS ORDERED: ceFAZolin/STERILE WATER 2 GM/20 ML SYRINGE IV NR (07:48)
[2020-05-20] MEDS ORDERED: BUPIVACAINE/PF (0.5%) 5 MG/1 ML 30 ML VIAL INFILTRATI ONE ×2 (07:58→09:52)
[2020-05-20] MEDS ORDERED: NEOMY 40 MG/POLYMYXIN B 200,000 UNITS/ML (GU) AMPULE IR ONE ×2 (07:58→09:53)
[2020-05-20] MEDS ORDERED: propofoL 200 MG/20 ML VIAL IV ONE (08:47)
[2020-05-20] MEDS ORDERED: PHENYLEPHRINE/NS 1,000 MCG/10 ML SYRINGE (OR USE) IV ONE (08:56)
[2020-05-20] MEDS ORDERED: ONDANSETRON 4 MG/2 ML INJ ONE (08:56)
[2020-05-20] MEDS ORDERED: fentaNYL 100 MCG/2 ML INJ ONE (08:56)
[2020-05-20] MEDS ORDERED: GLYCOPYRROLATE 0.4 MG/2 ML INJ ONE (09:40)
[2020-05-20] MEDS ORDERED: SODIUM CHLORIDE 0.9% IRR 1,500 ML BOTTLE IR ONE (09:53)
--- NOTE | 2020-05-20 10:03 | Short Stay Summary ---
Short Stay Documentation Date of service: 05/13/20 - History H&P: obtained from office - Allergies and Medications Current Medications: Allergies No Known Allergies Allergy (Verified 06/05/19 09:14) Home Medications Medication Instructions Recorded Confirmed Last Taken Type Sorbitol Solution [Sorbitol] 30 ml PO PRN PRN 08/10/19 05/20/20 Unknown History Midodrine 5 mg PO PRN PRN 05/15/20 05/15/20 Unknown History amLODIPine 10 mg PO PRN PRN 05/15/20 05/20/20 05/18/20 17:00 History hydrALAZINE 25 mg PO PRN 05/15/20 05/20/20 05/18/20 17:00 History Active Medications Acetaminophen (Tylenol) 1,000 mg PO PREOP NIKOS Stop: 05/20/20 22:00 Last Admin: 05/20/20 07:25 Dose: 1,000 mg Documented by: Cefazolin Sodium (Ancef/Sterile Water 2 Gm/20 Ml) 2 gm IV PREOP NR Stop: 05/20/20 18:00 Fentanyl (Sublimaze) 50 mcg IV Q5MIN PRN PRN Reason: Pain , Severe (7-10) Stop: 05/20/20 22:00 Sodium Chloride (Nacl 0.9% 1000 Ml) 1,000 mls @ 42 mls/hr IV DIRECT NIKOS Stop: 05/20/20 23:59 Last Admin: 05/20/20 07:25 Dose: 42 mls/hr Documented by: - Brief post op/procedure progress note Date of procedure: 05/20/20 Pre-op diagnosis: rt hernia Post-op diagnosis: same Procedure: hernia repair with mesh Anesthesia: SO Surgeon: CARMINA PENN Estimated blood loss: minimal Pathology: none (sac) Specimen disposition: to lab Condition: stable - Hospital course Hospital course: ultram & norco on chart - Disposition Condition at discharge: Stable Disposition: DC-01 TO HOME OR SELFCARE Short Stay Discharge Plan Follow up with: ZACHARIAH OLIVAS MD [Primary Care Provider] - 7 Days
[2020-05-20 11:45] VITALS: BP 138/80
--- NOTE | 2020-05-20 14:20 | Operative Report ---
PREOPERATIVE DIAGNOSIS: Right inguinal mass. POSTOPERATIVE DIAGNOSIS: Right inguinal hernia (indirect). PROCEDURE: Right inguinal hernia repair with keyhole mesh. SURGEON: Mohsen Pedraza M.D. ANESTHESIA: General. ESTIMATED BLOOD LOSS: Minimal. FLUIDS: Crystalloid. COMPLICATIONS: No complications. INDICATIONS: This patient is an 80-year-old gentleman with history of renal insufficiency, on dialysis, noted to have a golf ball size mass in the right groin. Exam was consistent with possible hernia. Risks, benefits, and complications were explained and discussed open versus robotic laparoscopy. He agreed to proceed with open hernia repair. DESCRIPTION OF PROCEDURE: The patient was taken to the operative suite, placed in the supine position. After adequate general anesthesia, he was prepped and draped in a sterile fashion. Left inguinal incision was made with the Bovie. Sharp dissection was taken down to the external oblique fascia. It was opened the length of the incision. Ilioinguinal nerve could be appreciated and was preserved, it was retracted laterally. The spermatic cord was identified and controlled with 1/2-inch Ricky drain. Floor of the inguinal canal was weak. Also on further inspection, he was found to have a hernia sac. It was dissected free. No bowel was in the sac. Base of the sac was suture ligated with 0 silk x 2. Hernia sac was excised and sent for routine pathologic evaluation. Keyhole mesh was then attached to shelving edge of Poupart's ligament and the conjoint tendon using 2-0 Ethibond in interrupted fashion. Copious irrigation was performed. Adequate hemostasis achieved. Spermatic cord was placed on top of the mesh. The external oblique fascia was closed with 2-0 Vicryl in a running fashion. Subcutaneous fascia was closed with 2-0 Vicryl in interrupted fashion. Ulises and island dressing was placed. The patient tolerated the procedure well and was extubated and taken to the recovery room. He was given Ultram and [place] and he will follow up in the office. JOB# [id number] KIMBERLY/MALIA
--- NOTE | 2020-05-20 18:00 | Post Anesthesia Evaluation ---
- Post Anesthesia Evaluation Patient Participated: Yes Airway Patent: Yes Stable Respiratory Function: Yes Nausea/Vomiting: No Temp > 96.8F: Yes Pain Manageable: Yes Adequeate Hydration: Yes Anesthesia Complications: No
== END 2020-05-20 06:36 | disposition home or self-care (01) ==
LOC: OR 06:35
PROVIDERS: ATTEND Urology
DX: K40.90 Unilateral inguinal hernia, without obstruction or gangrene, not specified as recurrent (principal); Z20.828 Contact with and (suspected) exposure to other viral communicable diseases; I13.2 Hypertensive heart and chronic kidney disease with heart failure and with stage 5 chronic kidney disease, or end stage renal disease; I50.9 Heart failure, unspecified; N18.6 End stage renal disease; K21.9 Gastro-esophageal reflux disease without esophagitis; D63.8 Anemia in other chronic diseases classified elsewhere; Z98.41 Cataract extraction status, right eye; Z79.899 Other long term (current) drug therapy; Z87.891 Personal history of nicotine dependence; Z98.42 Cataract extraction status, left eye; Z99.2 Dependence on renal dialysis; Z87.440 Personal history of urinary (tract) infections; Z98.890 Other specified postprocedural states
CPT/HCPCS: 36415; 49505; 80048; 82962; 85027; 88302; C1781; J2370; J2405; J2704; J3010; J7030; U0003

== ENCOUNTER 2021-04-07 09:06 | Day surgery (SDC) | payer MEDICARE ==
[~2021-04-07 09:06] MED LIST changes: +ACETAMINOPHEN 325 MG TAB PO SCH; +BUPIVACAINE/PF (0.5%) 5 MG/1 ML 30 ML VIAL INFILTRATI ONE; +NEOMY 40 MG/POLYMYXIN B 200,000 UNITS/ML (GU) AMPULE IR ONE; +SODIUM CHLORIDE 0.9% IRR 1,500 ML BOTTLE IR ONE
[2021-04-07 10:30] LABS: Hemoglobin 12.6 gm/dl (11.8-15.2); Mean Corpuscular HGB Conc 33 % (32-34); Mean Corpuscular Volume 110 fl (84-94); Red Blood Count 3.55 M/mm3 (3.65-5.03); Red Cell Distribution Width 16.5 % (13.2-15.2)
[2021-04-07] MEDS ORDERED: HYDROcodone/ACETAMINOPHEN 5-325 MG TAB PO PRN ×2 (10:30→13:32)
[2021-04-07] MEDS ORDERED: fentaNYL 100 MCG/2 ML INJ IV PRN (10:30)
[2021-04-07] MEDS ORDERED: ONDANSETRON 4 MG/2 ML INJ IV PRN (10:30)
--- NOTE | 2021-04-07 10:30 | Anesthesia Consultation ---
Anesthesia Consult and Med Hx Date of service: 04/07/21 - Airway Anesthetic Teeth Evaluation: Good ROM Head & Neck: Adequate Mental/Hyoid Distance: Adequate Mallampati Class: Class III Intubation Access Assessment: Possibly Difficult (previous LMA 4) - Pre-Operative Health Status ASA Pre-Surgery Classification: ASA3 Proposed Anesthetic Plan: General - Pulmonary Hx Smoking: Yes (quit 2018) Hx Respiratory Symptoms: No - Cardiovascular System Hx Hypertension: Yes Hx Heart Attack/AMI: No Hx Percutaneous Transluminal Coronary Angioplasty (PTCA): No Hx Cardia Arrhythmia: No - Central Nervous System CVA: No - Endocrine Hx End Stage Renal Disease: Yes (last HD 04/05/21) Hx Liver Disease: No Hx Insulin Dependent Diabetes: No Hx Non-Insulin Dependent Diabetes: No Hx Thyroid Disease: No - Hematic Hx Anemia: Yes - Other Systems Hx Obesity: No - Additional Comments Anesthesia Medical History Comments: No hx anesthetic complications.
--- NOTE | 2021-04-07 10:30 | Anesthesia Day of Surgery ---
Anesthesia Day of Surgery - Day of Surgery Patient Examined: Yes Patient H&P Reviewed: Yes Patient is NPO: Yes
[2021-04-07] MEDS ORDERED: ceFAZolin/NS 1 GM/50 ML 1 GM/50 ML BAG IV ONE (10:36)
[2021-04-07] MEDS ORDERED: DEXTROSE 50% IN WATER (25GM) 50 ML SYRINGE IV NR (10:38)
[2021-04-07] MEDS ORDERED: ceFAZolin/Water 2 GM/20 ML 2 GM/20 ML SYRINGE IV ONE (10:45)
[2021-04-07 10:52] LABS: Platelet Count 92 K/mm3 (140-440)
[2021-04-07] MEDS ORDERED: ROCURONIUM 50 MG/5 ML INJ IV ONE (10:58)
[2021-04-07] MEDS ORDERED: LIDOCAINE MPF (2%) 20 MG/1 ML VIAL 5 ML ONE (10:58)
[2021-04-07] MEDS ORDERED: propofoL 200 MG/20 ML VIAL IV ONE (10:59)
[2021-04-07] MEDS ORDERED: KETAMINE/STERILE WATER 50 MG/ML SYRINGE ONE (10:59)
[2021-04-07] MEDS ORDERED: ONDANSETRON 4 MG/2 ML INJ ONE (11:30)
[2021-04-07] MEDS ORDERED: BUPIVACAINE/PF (0.5%) 5 MG/1 ML 30 ML VIAL INFILTRATI ONE (11:33)
[2021-04-07] MEDS ORDERED: SODIUM CHLORIDE 0.9% IRR 1,500 ML BOTTLE IR ONE (11:33)
[2021-04-07] MEDS ORDERED: NEOMY 40 MG/POLYMYXIN B 200,000 UNITS/ML (GU) AMPULE IR ONE (11:33)
[2021-04-07] MEDS ORDERED: GLYCOPYRROLATE 0.4 MG/2 ML INJ ONE (11:58)
[2021-04-07] MEDS ORDERED: NEOSTIGMINE 10MG/10 ML INJ MDV ONE (11:58)
--- NOTE | 2021-04-07 12:06 | Short Stay Summary ---
Short Stay Documentation Date of service: 04/07/21 - History H&P: obtained from office - Allergies and Medications Current Medications: Allergies No Known Allergies Allergy (Verified 06/05/19 09:14) Home Medications Medication Instructions Recorded Confirmed Last Taken Type Sorbitol Solution [Sorbitol] 30 ml PO DAILY 08/10/19 04/05/21 Unknown History Midodrine 5 mg PO PRN PRN 05/15/20 04/05/21 Unknown History Cholecalciferol Vit D3 [Vitamin D3 1,000 unit PO QDAY 04/06/21 04/06/21 Unknown History 1,000 UNIT TAB] Fluticasone [Flonase] 1 spray NS QDAY 04/06/21 04/06/21 Unknown History Loratadine [Claritin] 10 mg PO DAILY 04/06/21 04/06/21 Unknown History Meclizine [Antivert] 25 mg PO TID PRN 04/06/21 04/06/21 Unknown History Sevelamer Carbonate [Renvela] 800 mg PO TIDWM 04/06/21 04/06/21 Unknown History Active Medications Acetaminophen (Acetaminophen 325 Mg Tab) 650 mg PO PREOP NIKOS Hydrocodone Bitart/Acetaminophen (Hydrocodone/Acetaminophen 5-325 Mg Tab) 2 each PO ONCE PRN PRN Reason: Pain, Moderate (4-6) Stop: 04/07/21 12:30 Dextrose (Dextrose 50% In Water (25gm) 50 Ml Syringe) 25 ml IV ONCE NR; Protocol Stop: 04/07/21 20:00 Fentanyl (Fentanyl 100 Mcg/2 Ml Inj) 50 mcg IV Q5MIN PRN PRN Reason: Pain , Severe (7-10) Stop: 04/07/21 23:00 Sodium Chloride (Nacl 0.9% 1000 Ml) 1,000 mls @ 42 mls/hr IV DIRECT NIKOS Stop: 04/07/21 23:59 Ondansetron HCl (Ondansetron 4 Mg/2 Ml Inj) 4 mg IV ONCE PRN PRN Reason: Nausea And Vomiting Stop: 04/07/21 13:00 - Brief post op/procedure progress note Date of procedure: 04/07/21 Pre-op diagnosis: left hernia Post-op diagnosis: same Procedure: left hernia repair with mesh Anesthesia: SO Surgeon: CARMINA PENN Specimen disposition: to lab (hernia sac) Condition: stable - Hospital course Hospital course: norco - Disposition Condition at discharge: Stable Disposition: 01 HOME / SELF CARE / HOMELESS Short Stay Discharge Plan Follow up with: ZACHARIAH OLIVAS MD [Primary Care Provider] - 7 Days
--- NOTE | 2021-04-07 13:56 | Operative Report ---
DATE OF SURGERY: 04/07/2021 PREOPERATIVE DIAGNOSIS: Left inguinal hernia. POSTOPERATIVE DIAGNOSIS: Left inguinal hernia. PROCEDURE: Left inguinal hernia repair with mesh. SURGEON: Mohsen Pedraza MD ANESTHESIA: General. ESTIMATED BLOOD LOSS: Minimal. FLUIDS: Crystalloid. COMPLICATIONS: No complications. INDICATIONS: This patient is an 81-year-old gentleman known to our service, had a right hernia repair last year, presents now with a bulge on the left side. Exam was consistent with a hernia. Risks, benefits and complications were explained. DESCRIPTION OF PROCEDURE: The patient was taken to the operative suite, placed in a supine position. After adequate general anesthesia, prepped and draped in a sterile fashion. Left inguinal incision was made with Bovie. Sharp dissection was taken down to the external oblique fascia, it was opened the length of the cord. The spermatic cord was isolated with a Ricky. Floor of the inguinal canal was weak. I was able to identify a sac. It was dissected free. No bowel contents were appreciated. Sac was tied off at the base with 2-0 silk, excised and sent for routine pathologic evaluation. A keyhole mesh was then attached to the shelving edge of Poupart's ligament and the conjoined tendon using 2-0 Ethibond in an interrupted fashion. Copious irrigation was performed. Adequate hemostasis was achieved. The ilioinguinal nerve could not be appreciated. External oblique fascia was closed with a 2-0 Vicryl in a running fashion. [place]'s layer was closed with 2-0 Vicryl in a running fashion. Skin was closed with aurelia. Marcaine 0.25% was injected in the skin, total of 10 mL. [place] closed the skin. Island dressing was placed. He tolerated the procedure well and was extubated and taken to the recovery room. He will go home on [place]. TID: [id number] RECEIPT: [id number] KIMBERLY/MINH
[2021-04-07 14:44] VITALS: BP 140/75
== END 2021-04-07 14:10 | disposition home or self-care (01) ==
LOC: OR 09:06
PROVIDERS: ATTEND Urology
DX: K40.90 Unilateral inguinal hernia, without obstruction or gangrene, not specified as recurrent (principal); I13.2 Hypertensive heart and chronic kidney disease with heart failure and with stage 5 chronic kidney disease, or end stage renal disease; I50.9 Heart failure, unspecified; N18.6 End stage renal disease; K21.9 Gastro-esophageal reflux disease without esophagitis; E87.5 Hyperkalemia; Z99.2 Dependence on renal dialysis; Z87.891 Personal history of nicotine dependence; Z79.899 Other long term (current) drug therapy; Z98.890 Other specified postprocedural states
CPT/HCPCS: 36415; 49505; 80048; 82962; 85027; 88302; C1781; J0690; J2405; J2704; J2710; J3490; J7030